=== PATIENT | female | born 1980 | race Caucasian/White ===

== ENCOUNTER 2016-12-23 00:46 | Emergency (ER) | payer BC ==
[~2016-12-23] VITALS: Ht 157.5 cm; Wt 97.5 kg
[2016-12-23 02:00] LABS: BASO # 0.1 x10^3/uL (0.0-0.2); BASO % 1 % (0-3); EOS % 5 % (0-3); HEMATOCRIT 41.5 % (36.0-47.0); HEMOGLOBIN 13.7 g/dL (12.0-15.5); LYMPH # 2.7 x10^3/uL (1.0-4.8); LYMPH % 26 % (24-48); MEAN CORPUSCULAR HEMOGLOBIN 29 pg (25-35); MEAN CORPUSCULAR HGB CONC 33 g/dL (31-37); MEAN CORPUSCULAR VOLUME 87 fL (79-100); MONO % 10 % (0-9); NEUT % 59 % (31-73); PLATELET COUNT 292 x10^3/uL (140-400); RED BLOOD COUNT 4.74 x10^6/uL (3.50-5.40); RED CELL DISTRIBUTION WIDTH 13.5 % (11.5-14.5); WHITE BLOOD COUNT 10.4 x10^3/uL (4.0-11.0)
[2016-12-23] MEDS ORDERED: ASPIRIN 325 MG TABLET PO ONE (02:00)
[2016-12-23 02:11] LABS: BARBITURATES NEG (NEG); BENZODIAZEPINES NEG (NEG); CANNABINOIDS NEG (NEG); COCAINE NEG (NEG); METHADONE NEG (NEG); OPIATES NEG (NEG); PHENCYCLIDINE NEG (NEG)
[2016-12-23 02:13] LABS: ETHANOL, URINE NEG (NEG)
[2016-12-23 03:47] LABS: OBC FLU VALID
[2016-12-23 03:53] LABS: CALCIUM 9.5 mg/dL (8.5-10.1); GFR 62.1; POTASSIUM 3.6 mmol/L (3.5-5.1)
[2016-12-23 04:15] VITALS: BP 105/66
[2016-12-23] MEDS ORDERED: CYCLOBENZAPRINE 10 MG TABLET. PO ONE (04:30)
[2016-12-23] MEDS ORDERED: CYCL10TA2 PO (04:37)
[2016-12-23] MEDS ORDERED: NAPR250T2 PO (04:37)
--- NOTE | 2016-12-23 06:35 | EKG ---
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
--- NOTE | 2016-12-23 07:07 | ED.ADGEN ---
Past Medical History Past Medical History: Asthma, Hypothyroid, Other Additional Past Medical Histor: sleep apnea Past Surgical History: Cholecystectomy, Other Additional Past Surgical Histo: L knee Alcohol Use: None Drug Use: None Adult General Chief Complaint Chief Complaint: CHEST PAIN HPI HPI Patient is a 36 year old woman, history of asthma, hypothyroidism, sleep apnea , who presents to the emergency department with a complaint of chest pain, arm pain, shortness of breath, which she states began today. Has been constant since early this evening. 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 Denies any drugs, alcohol, positive for cigarette use. No family history of sudden cardiac or cardiac issues in young people. No history of DVT or PE in herself or family members, no recent travel or surgery. Patient has not taken any medication prior to coming to the ED. No pain with inspiration, pain with palpation of the chest. Denies similar symptoms previously. Denies any weakness numbness or tingling. Patient states the pain is located in the left side of her chest, and that she has some pain in the left arm and tingling as well. No headache, no rhinorrhea or cough. Review of Systems Review of Systems Constitutional: Denies fever or chills. [] Eyes: Denies change in visual acuity. [] HENT: Denies nasal congestion or sore throat. [] Respiratory: Denies cough, shortness of breath with chest pain. Cardiovascular: Left anterior chest pain, no edema. GI: Denies abdominal pain, nausea, vomiting, bloody stools or diarrhea. [] : Denies dysuria. [] Musculoskeletal: Denies back pain or joint pain. [] Integument: Denies rash. [] Neurologic: Denies headache, focal weakness or sensory changes. [] Endocrine: Denies polyuria or polydipsia. [] Lymphatic: Denies swollen glands. [] Psychiatric: Denies depression, complaining of significant anxiety. Current Medications Current Medications Current Medications Medications (Trade) Dose Ordered Sig/Xenia Start Time Stop Time Status Last Admin Dose Admin Aspirin (Jeremy Aspirin) 325 mg 1X ONCE 12/23/16 02:00 12/23/16 04:14 DC 12/23/16 03:12 325 MG Cyclobenzaprine HCl (Flexeril) 10 mg 1X ONCE 12/23/16 04:30 12/23/16 04:31 DC 12/23/16 04:23 10 MG Allergies Allergies Allergies Coded Allergies Type Severity Reaction Last Updated Verified No Known Drug Allergies 12/23/16 No Physical Exam Physical Exam Constitutional: Well developed, well nourished, no acute distress, non-toxic appearance. [] HENT: Normocephalic, atraumatic, bilateral external ears normal, oropharynx moist, no oral exudates, nose normal. [] Eyes: PERRLA, EOMI, conjunctiva normal, no discharge. [] Neck: Normal range of motion, no tenderness, supple, no stridor. [] Cardiovascular:Heart rate regular rhythm, no murmur , S1, S2, rubs or gallops. Patient with reproducible left anterior chest wall tenderness. No crepitus. [] Lungs & Thorax: Bilateral breath sounds clear to auscultation, no wheezing, rhonchi, rales. [] Abdomen: Bowel sounds normal, soft, no tenderness, no masses, no rebound, rigidity, no guarding, no pulsatile masses. [] Skin: Warm, dry, no erythema, no rash. [] Back: No tenderness, no CVA tenderness. [] Extremities: No tenderness, no cyanosis, no clubbing, ROM intact, no edema. Negative Homans sign. [] Neurologic: Alert and oriented X 3, normal motor function, normal sensory function, no focal deficits noted. [] Psychologic: Affect normal, judgement normal, mood normal. [] Current Patient Data Vital Signs Vital Signs Date Time Temp Pulse Resp B/P Pulse Ox O2 Delivery O2 Flow Rate FiO2 12/23/16 04:15 100 25 105/66 93 Room Air 12/23/16 00:49 97.4 97.4 Lab Values Laboratory Tests Test 12/23/16 01:01 12/23/16 01:19 12/23/16 01:54 12/23/16 03:14 POC Urine HCG, Qualitative Hcg negative (Negative) White Blood Count 10.4x10^3/uL (4.0-11.0) Red Blood Count 4.74x10^6/uL (3.50-5.40) Hemoglobin 13.7g/dL (12.0-15.5) Hematocrit 41.5% (36.0-47.0) Mean Corpuscular Volume 87fL (79-100) Mean Corpuscular Hemoglobin 29pg (25-35) Mean Corpuscular Hemoglobin Concent 33g/dL (31-37) Red Cell Distribution Width 13.5% (11.5-14.5) Platelet Count 292x10^3/uL (140-400) Neutrophils (%) (Auto) 59% (31-73) Lymphocytes (%) (Auto) 26% (24-48) Monocytes (%) (Auto) 10% (0-9) H Eosinophils (%) (Auto) 5% (0-3) H Basophils (%) (Auto) 1% (0-3) Neutrophils # (Auto) 6.1x10^3uL (1.8-7.7) Lymphocytes # (Auto) 2.7x10^3/uL (1.0-4.8) Monocytes # (Auto) 1.1x10^3/uL (0.0-1.1) Eosinophils # (Auto) 0.5x10^3/uL (0.0-0.7) Basophils # (Auto) 0.1x10^3/uL (0.0-0.2) D-Dimer (Poppy) < 0.27ug/mlFEU (0.00-0.50) Sodium Level 142mmol/L (136-145) Potassium Level 3.6mmol/L (3.5-5.1) Chloride Level 103mmol/L (98-107) Carbon Dioxide Level 29mmol/L (21-32) Anion Gap 10 (6-14) Blood Urea Nitrogen 17mg/dL (7-20) Creatinine 1.0mg/dL (0.6-1.0) Estimated GFR (Cockcroft-Gault) 62.1 Glucose Level 84mg/dL (70-99) Calcium Level 9.5mg/dL (8.5-10.1) Troponin I Quantitative < 0.017ng/mL (0.000-0.055) PV-Hsv-S-Type Natriuretic Peptide 91pg/mL (0-124) Lipase 139U/L (73-393) Urine Opiates Screen Neg (NEG) Urine Methadone Screen Neg (NEG) Urine Barbiturates Neg (NEG) Urine Phencyclidine Screen Neg (NEG) Urine Amphetamine/Methamphetamine Neg (NEG) Urine Benzodiazepines Screen Neg (NEG) Urine Cocaine Screen Neg (NEG) Urine Cannabinoids Screen Neg (NEG) Urine Ethyl Alcohol Neg (NEG) Influenza Type A Antigen Negative (NEGATIVE) Influenza Type B Antigen Negative (NEGATIVE) Laboratory Tests 12/23/16 01:19 Laboratory Tests 12/23/16 01:19 EKG EKG EC: Sinus tachycardia, heart rate 101 bpm, upright axis, QTC of 447, OH 104, QRS of 74, patient with upright axis, single PVC noted, no ST elevations or depressions, abnormal ECG with PVC as stated, no other abnormalities identified. As interpreted by me. [] Radiology/Procedures Radiology/Procedures Chest x-ray: PA and lateral: 2 view: Normal cardiopulmonary silhouette, slightly suboptimal respiratory effort, no infiltrates, no effusions, no soft tissue or bony abnormalities identified, no free air. As interpreted by me. [] Course & Med Decision Making Course & Med Decision Making Pertinent Labs and Imaging studies reviewed. 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 Pain is reproducible with palpation. It is not respirophasic. Hasn't taken any medications prior to arrival in the ED. Patient states that she is under a great deal of stress, and loose contributed to her symptoms. She is mildly tachycardic in the emergency department, no swelling in the legs or other concerning factors for PE. Patient's d-dimer was negative and the ED. Patient's laboratory studies were all unremarkable. Chest x -ray did not reveal evidence acutely concerning findings, ECG was not concerning as well. Patient received pain medication in the emergency department on reevaluation patient states she is feeling better at this time. Patient was ambulated in the emergency department, oxygen saturation heart rate remained within normal limits, patient's pain is improved as stated. I discussed with patient that she has no indications of concerning cardiac or pulmonary abnormalities in the ED. Patient states she is relieved by these findings. We did discuss stress reduction, use of muscle relaxers and anti- inflammatories. Patient was discharged home in stable condition with cyclobenzaprine, naproxen, after receiving a dose in the emergency department. Also received aspirin in the ED. She was given a work note and clear and detailed return and follow-up instructions with which she voiced understanding and agreement. Dario Disclaimer Dario Disclaimer This electronic medical record was generated, in whole or in part, using a voice recognition dictation system. Departure Impression: Primary Impression: Chest pain Disposition: HOME, SELF-CARE Condition: IMPROVED Scripts Naproxen 250 Mg [id number] Mg PO BID PRN PAIN #10 Prov:ELFEGO POOLE DO 12/23/16 Cyclobenzaprine Hcl 10 Mg [id number] Mg PO TID PRN MUSCLE PAIN #12 TAB Prov:ELFEGO POOLE DO 12/23/16 ELFEGO POOLE DO Dec 23, 2016 07:07
--- NOTE | 2016-12-23 07:18 | RAD ---
Chest, 2 views, 12/23/2016: History: Chest pain The heart size and pulmonary vascularity are normal. No pulmonary infiltrates are seen. There is no evidence of pleural fluid. IMPRESSION: No acute cardiopulmonary abnormality is detected.
== END 2016-12-23 04:47 | disposition home or self-care (01) ==
LOC: ER 00:46
DX: R07.9 Chest pain, unspecified (principal); J45.909 Unspecified asthma, uncomplicated; E03.9 Hypothyroidism, unspecified; F17.210 Nicotine dependence, cigarettes, uncomplicated
CPT/HCPCS: 36415; 71020; 80048; 81025; 83690; 83880; 84484; 85027; 85379; 87804; 93005; 99285; G0481

== ENCOUNTER 2017-03-29 00:45 | Emergency (ER) | payer BC ==
[~2017-03-29] VITALS: Ht 162.6 cm; Wt 104.3 kg
[~2017-03-29 00:45] MED LIST: CYCL10TA2 PO; NAPR250T2 PO
[2017-03-29 02:55] VITALS: BP 111/77
--- NOTE | 2017-03-29 03:31 | PHYS DOC ---
Past Medical History Past Medical History: Asthma, Hypothyroid, Other Additional Past Medical Histor: sleep apnea, GESTATIONAL DIABETES Past Surgical History: Cholecystectomy, Other Additional Past Surgical Histo: L knee Alcohol Use: None Drug Use: None Adult General Chief Complaint Chief Complaint: MULTIPLE COMPLAINTS [facility] Patient is a 36 year old female approximately 10 weeks who presents with concern of dizziness, lightheadedness, and shakiness shortly after taking glyburide medicine. This was the first time she took it. She was diagnosed with gestational diabetes. Denies prior taking diabetic medication. At this time, she is asymptomatic and feeling normal. She denies headache, vision changes, nausea or vomiting, fever or chills, abdominal pain, vaginal bleeding or discharge, dysuria, hematuria, back pain. Review of Systems Review of Systems Constitutional: Denies fever or chills [] Eyes: Denies change in visual acuity, redness, or eye pain [] HENT: Denies nasal congestion or sore throat [] Respiratory: Denies cough or shortness of breath [] Cardiovascular: No additional information not addressed in [facility] [] GI: Denies abdominal pain, nausea, vomiting, bloody stools or diarrhea [] : Denies dysuria or hematuria [] Musculoskeletal: Denies back pain or joint pain [] Integument: Denies rash or skin lesions [] Neurologic: Denies headache, focal weakness or sensory changes [] Endocrine: Denies polyuria or polydipsia [] Allergies Allergies Allergies Coded Allergies Type Severity Reaction Last Updated Verified No Known Drug Allergies 12/23/16 No Physical Exam Physical Exam Constitutional: Well developed, well nourished, no acute distress, non-toxic appearance. [] HENT: Normocephalic, atraumatic, bilateral external ears normal, oropharynx moist, nose normal. [] Eyes: PERRLA, EOMI. [] Neck: Normal range of motion, supple. [] Cardiovascular:Heart rate regular rhythm [] Lungs & Thorax: Bilateral breath sounds clear to auscultation [] Abdomen: Bowel sounds normal, soft, no tenderness. [] Skin: Warm, dry, no erythema, no rash. [] Back: Normal range of motion. [] Extremities: No tenderness, ROM intact, no edema. [] Neurologic: Alert and oriented X 3, normal motor function, normal sensory function, no focal deficits noted. [] Psychologic: Affect normal, judgement normal, mood normal. [] Current Patient Data Vital Signs Vital Signs Date Time Temp Pulse Resp B/P (MAP) Pulse Ox O2 Delivery O2 Flow Rate FiO2 03/29/17 02:55 97.8 100 20 98 Room Air 97.8 Lab Values Laboratory Tests Test 03/29/17 01:23 03/29/17 01:57 Glucose (Fingerstick) 82 mg/dL (70-99) POC Urine HCG, Qualitative Hcg positive (Negative) Course & Med Decision Making Course & Med Decision Making Pertinent Labs and Imaging studies reviewed. (See chart for details) Discussed she should stop taking glyburide at this time and she should follow- up with her OB doctor to discuss other options. Discussed she should keep a blood glucose journal. Return precautions given. She understands and agrees with plan. Dragon Disclaimer Dragon Disclaimer This electronic medical record was generated, in whole or in part, using a voice recognition dictation system. Departure Departure Impression: Primary Impression: Encounter for medical screening examination Disposition: HOME, SELF-CARE Condition: STABLE Referrals: THELMA FORD MD (PCP) Patient Instructions: Gestational Diabetes Mellitus Additional Instructions: Keep a blood sugar journal. 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 Return for any concerns. Baron PURVIS MD Mar 29, 2017 03:31
== END 2017-03-29 03:50 | disposition home or self-care (01) ==
LOC: ER 00:45
DX: Z34.81 Encounter for supervision of other normal pregnancy, first trimester (principal); O26.891 Other specified pregnancy related conditions, first trimester; R42 Dizziness and giddiness; O24.419 Gestational diabetes mellitus in pregnancy, unspecified control; Z3A.10 10 weeks gestation of pregnancy; O99.511 Diseases of the respiratory system complicating pregnancy, first trimester; J45.909 Unspecified asthma, uncomplicated; O99.281 Endocrine, nutritional and metabolic diseases complicating pregnancy, first trimester; G47.30 Sleep apnea, unspecified; E03.9 Hypothyroidism, unspecified; Z90.49 Acquired absence of other specified parts of digestive tract
CPT/HCPCS: 81025; 82962; 99282

== ENCOUNTER 2017-09-18 21:44 | Emergency (ER) | payer BC ==
[~2017-09-18] VITALS: Ht 157.5 cm; Wt 108.9 kg
[~2017-09-18 21:44] MED LIST changes: -NAPR250T2 PO; +NAPR250T6 PO
[2017-09-18 23:30] VITALS: BP 102/53
--- NOTE | 2017-09-19 00:09 | PHYS DOC ---
Past Medical History Past Medical History: Asthma, Hypothyroid Additional Past Medical Histor: sleep apnea, GESTATIONAL DIABETES Past Surgical History: Cholecystectomy, Other Additional Past Surgical Histo: orthroscopic left knee Additional Information: 10/07- ppd Alcohol Use: None Drug Use: None Adult General Chief Complaint Chief Complaint: CHEST PAIN HPI HPI Patient is a 37 year old female who presents with left-sided chest wall pain worse with deep breathing, and cough. Patient was evaluated and diagnosed with pneumonia on Friday of this week and outside hospital. She was subsequently placed on Levaquin and prednisone is being compliant with treatment. Patient reports some chest wall pain and discomfort was told to follow-up with her primary care physician for repeat x-ray. Unfortunately, the patient was unable to be evaluated by her primary care and came to the emergency department. Patient has not had fever chills, nausea vomiting or sweats. Reports some dyspnea on exertion. Denies history of chronic pulmonary disease, asthma, CHF, CAD, DVT and PE. No other acute symptoms or complaints. [] Review of Systems Review of Systems Review symptoms of symptoms as per HPI. All other review symptoms are negative. All other systems were reviewed and found to be within normal limits, except as documented in this note. Allergies Allergies Allergies Coded Allergies Type Severity Reaction Last Updated Verified No Known Drug Allergies 12/23/16 No Physical Exam Physical Exam Constitutional: Well developed, well nourished, no acute distress, non-toxic appearance. [] HENT: Normocephalic, atraumatic, bilateral external ears normal, oropharynx moist, no oral exudates, nose normal. [] Eyes: PERRLA, EOMI, conjunctiva normal, no discharge. [] Neck: Normal range of motion. [] Cardiovascular: Tachycardic.[] Lungs & Thorax: Aspirations nonlabored, coarse breath sounds in left base. Left parasternal pain, tenderness, no palpable crepitus or subcutaneous emphysema. No flail chest.. [] Abdomen: Bowel sounds normal, soft, no tenderness. [] Skin: Warm, dry, no erythema, no rash. [] Back: No tenderness. [] Extremities: No tenderness. [] Neurologic: Alert and oriented X 3, normal motor function, normal sensory function, no focal deficits noted. [] Psychologic: Affect normal, judgement normal, mood normal. [] Current Patient Data Vital Signs Vital Signs Date Time Temp Pulse Resp B/P (MAP) Pulse Ox O2 Delivery O2 Flow Rate FiO2 09/18/17 22:18 98.3 98 16 140/82 (101) 98 Room Air 98.3 EKG EKG [EKG: Normal sinus rhythm, rate 97, no acute ST-T wave changes, QTC 446. By this physician.] Radiology/Procedures Radiology/Procedures [Chest x-ray: Possible resolving left lower lobe infiltrate.] Course & Med Decision Making Course & Med Decision Making Pertinent Labs and Imaging studies reviewed. (See chart for details) [Reproducible chest wall pain in the setting of recently diagnosed pneumonia. No respiratory compromise. Vital signs are stable. Patient's noted mildly tachycardic consistent with prednisone use. Recommend treatment of pneumonia outpatient follow-up with PCP for further management. Return precautions reviewed. Patient's verbalizes understanding and agreement discharge instructions prior to departure.] Dragon Disclaimer Dragon Disclaimer This electronic medical record was generated, in whole or in part, using a voice recognition dictation system. Departure Departure Impression: Primary Impression: Chest pain Disposition: 01 HOME, SELF-CARE Condition: GOOD Referrals: JENNIFER KHAN MD (PCP) Patient Instructions: Chest Wall Pain, [id number] Additional Instructions: You were evaluated in the emergency department for chest wall pain. Chest x-ray and EKG were performed and are consistent with pneumonia. Please take hydrocodone for pain, follow instructions provided to from [facility] and follow-up with your primary care physician or on-call physician in the next 5-7 days. In the meantime if you develop new or worsening symptoms, please return to the closest emergency department. MYRON ANTHONY DO Sep 19, 2017 00:09
--- NOTE | 2017-09-19 06:11 | EKG ---
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
--- NOTE | 2017-09-19 07:11 | RAD ---
Indication: Short of air, left chest pain Technique: 2 views of the chest including a repeat PA film to include the left costophrenic angle are provided. No comparison is available. Findings: The lungs are clear. The heart is not enlarged. There is no heart failure. There is no pleural effusion. Bony structures are intact. Leads overlie the patient. Impression: No acute thoracic findings.
== END 2017-09-19 00:18 | disposition home or self-care (01) ==
LOC: ER 21:44
DX: R07.89 Other chest pain (principal); R00.0 Tachycardia, unspecified; R05 Cough; R06.09 Other forms of dyspnea; J45.909 Unspecified asthma, uncomplicated; E03.9 Hypothyroidism, unspecified; G47.30 Sleep apnea, unspecified; F17.200 Nicotine dependence, unspecified, uncomplicated; Z90.49 Acquired absence of other specified parts of digestive tract
CPT/HCPCS: 71020; 93005; 99284-25

== ENCOUNTER 2018-08-09 10:25 | Inpatient (IN) | payer BC ==
[~2018-08-09] VITALS: Ht 162.6 cm; Wt 114.8 kg
--- NOTE | 2018-08-09 10:41 | PHYS DOC ---
Past Medical History Past Medical History: Asthma, Hypothyroid Additional Past Medical Histor: sleep apnea, GESTATIONAL DIABETES Past Surgical History: Cholecystectomy, Other Additional Past Surgical Histo: orthroscopic left knee Alcohol Use: None Drug Use: None Adult General Chief Complaint Chief Complaint: [facility] Patient is a 38 year old female presented ER today for evaluation of substernal chest pain that been going on for about week. Patient said she is also feeling dizzy, having trouble breathing. Patient is a smoker. Patient had a strong family history of coronary artery disease, her dad had multiple stent. Patient had no diabetic, no history hypertension, no history of blood clot disorder or any history of coronary artery disease in the past. Patient has history of RAMONITA, history of cholecystectomy. Patient was admitted at [facility] on , diagnosed with pleurisy, she was sent home, scheduled for an outpatient stress test. Patient however continued have chest pain so she went to the emergency room at [facility] this morning, diagnosed with pleurisy again, she was put on Levaquin and prednisone. Patient however still has chest pain and trouble breathing so she called her family doctor who told her to come to ER today for evaluation. She denies any recent operation or travel. Review of Systems Review of Systems Constitutional: Denies fever or chills [] Eyes: Denies change in visual acuity, redness, or eye pain [] HENT: Denies nasal congestion or sore throat [] Respiratory: Denies cough or positive for shortness of breath [] Cardiovascular: No additional information not addressed in HPI [] GI: Denies abdominal pain, nausea, vomiting, bloody stools or diarrhea [] : Denies dysuria or hematuria [] Musculoskeletal: Denies back pain or joint pain [] Integument: Denies rash or skin lesions [] Neurologic: Denies headache, focal weakness or sensory changes [] Endocrine: Denies polyuria or polydipsia [] All other systems were reviewed and found to be within normal limits, except as documented in this note. Current Medications Current Medications Current Medications Medications (Trade) Dose Ordered Sig/Xenia Start Time Stop Time Status Last Admin Dose Admin Info (CONTRAST GIVEN -- Rx MONITORING) 1 each PRN DAILY PRN 08/09/18 10:45 08/11/18 10:44 Iohexol (Omnipaque 300 Mg/ml) 75 ml 1X ONCE 08/09/18 10:45 08/09/18 10:46 DC Sodium Chloride 1,000 ml @ 1,000 mls/hr 1X ONCE 08/09/18 11:15 08/09/18 12:14 DC 08/09/18 11:30 1,000 MLS/HR Allergies Allergies Allergies Coded Allergies Type Severity Reaction Last Updated Verified No Known Drug Allergies 12/23/16 No Physical Exam Physical Exam Constitutional: Well developed, well nourished, no acute distress, non-toxic appearance. [] HENT: Normocephalic, atraumatic, bilateral external ears normal, oropharynx moist, no oral exudates, nose normal. [] Eyes: PERRLA, EOMI, conjunctiva normal, no discharge. [] Neck: Normal range of motion, no tenderness, supple, no stridor. [] Cardiovascular:Heart rate regular rhythm, no murmur [] Lungs & Thorax: expiratory wheezing in all lung hahn. Abdomen: Bowel sounds normal, soft, no tenderness, no masses, no pulsatile masses. [] Skin: Warm, dry, no erythema, no rash. [] Back: No tenderness, no CVA tenderness. [] Extremities: No tenderness, no cyanosis, no clubbing, ROM intact, no edema. [] Neurologic: Alert and oriented X 3, normal motor function, normal sensory function, no focal deficits noted. [] Psychologic: Affect normal, judgement normal, mood normal. [] Current Patient Data Vital Signs Vital Signs Date Time Temp Pulse Resp B/P (MAP) Pulse Ox O2 Delivery O2 Flow Rate FiO2 08/09/18 10:32 98.1 18 139/89 (106) 99 Room Air 98.1 Lab Values Laboratory Tests Test 08/09/18 10:30 08/09/18 11:00 White Blood Count 12.8 x10^3/uL (4.0-11.0) H Red Blood Count 4.72 x10^6/uL (3.50-5.40) Hemoglobin 14.1 g/dL (12.0-15.5) Hematocrit 41.1 % (36.0-47.0) Mean Corpuscular Volume 87 fL (79-100) Mean Corpuscular Hemoglobin 30 pg (25-35) Mean Corpuscular Hemoglobin Concent 34 g/dL (31-37) Red Cell Distribution Width 13.7 % (11.5-14.5) Platelet Count 336 x10^3/uL (140-400) Neutrophils (%) (Auto) 71 % (31-73) Lymphocytes (%) (Auto) 18 % (24-48) L Monocytes (%) (Auto) 9 % (0-9) Eosinophils (%) (Auto) 1 % (0-3) Basophils (%) (Auto) 1 % (0-3) Neutrophils # (Auto) 9.1 x10^3uL (1.8-7.7) H Lymphocytes # (Auto) 2.3 x10^3/uL (1.0-4.8) Monocytes # (Auto) 1.2 x10^3/uL (0.0-1.1) H Eosinophils # (Auto) 0.1 x10^3/uL (0.0-0.7) Basophils # (Auto) 0.1 x10^3/uL (0.0-0.2) Prothrombin Time 12.5 SEC (11.7-14.0) Prothrombin Time INR 1.0 (0.8-1.1) PTT 31 SEC (24-38) Sodium Level 139 mmol/L (136-145) Potassium Level 3.4 mmol/L (3.5-5.1) L Chloride Level 99 mmol/L (98-107) Carbon Dioxide Level 29 mmol/L (21-32) Anion Gap 11 (6-14) Blood Urea Nitrogen 11 mg/dL (7-20) Creatinine 1.2 mg/dL (0.6-1.0) H Estimated GFR (Cockcroft-Gault) 49.8 BUN/Creatinine Ratio 9 (6-20) Glucose Level 103 mg/dL (70-99) H Calcium Level 9.5 mg/dL (8.5-10.1) Magnesium Level 2.2 mg/dL (1.8-2.4) Total Bilirubin 0.8 mg/dL (0.2-1.0) Aspartate Amino Transferase (AST) 10 U/L (15-37) L Alanine Aminotransferase (ALT) 25 U/L (14-59) Alkaline Phosphatase 105 U/L (46-116) Creatine Kinase 52 U/L (26-192) Creatine Kinase MB (Mass) 0.7 ng/mL (0.0-3.6) Creatine Kinase MB Relative Index % (0-4) Troponin I Quantitative < 0.017 ng/mL (0.000-0.055) LH-Bge-U-Type Natriuretic Peptide 45 pg/mL (0-124) Total Protein 8.7 g/dL (6.4-8.2) H Albumin 4.2 g/dL (3.4-5.0) Albumin/Globulin Ratio 0.9 (1.0-1.7) L Lipase 114 U/L (73-393) Thyroid Stimulating Hormone (TSH) 7.244 uIU/mL (0.358-3.74) H Free Thyroxine 1.03 ng/dL (0.76-1.46) Urine Collection Type Unknown Urine Color Yellow Urine Clarity Clear Urine pH 6.5 Urine Specific [place] <=1.005 Urine Protein Negative mg/dL (NEG-TRACE) Urine Glucose (UA) Negative mg/dL (NEG) Urine Ketones (Stick) Negative mg/dL (NEG) Urine Blood Large (NEG) Urine Nitrite Negative (NEG) Urine Bilirubin Negative (NEG) Urine Urobilinogen Dipstick 0.2 mg/dL (0.2 mg/dL) Urine Leukocyte Esterase Negative (NEG) Urine RBC Rare /HPF (0-2) Urine WBC 0 /HPF (0-4) Urine Squamous Epithelial Cells Few /LPF Urine Bacteria 0 /HPF (0-FEW) Laboratory Tests 08/09/18 10:30 Laboratory Tests 08/09/18 10:30 EKG EKG EKG: RATE OF 87 BPM, PVC, NO STEMI. Radiology/Procedures Radiology/Procedures [][facility] [address] [place] [address], [place] [id number] IMAGING REPORT Signed PATIENT: CORINA STEIN ACCOUNT: [id number] : 1980 LOCATION: ER AGE: 38 SEX: F EXAM STATUS: REG ER ORD. PHYSICIAN: THELMA VILCHIS DO REASON: CHEST PAIN, SHORTNESS OF AIR, DIZZINESS PROCEDURE: CT ANGIOGRAPHY CHEST CT arteriogram of the chest. HISTORY: Chest pain, short of breath, dizziness CT arteriogram of the chest was done using 60 mL Isovue-370 contrast. Sagittal and coronal MIP images were reconstructed. Thyroid is homogeneous. There is no mediastinal adenopathy or pleural effusion. Visualized portions of the liver and spleen are unremarkable except for a cyst in the liver. Visualized portion of the pancreas is normal, adrenal glands are unremarkable. Upper poles of the kidneys are normal. Patient's had a cholecystectomy. Lungs are free of infiltrates or nodules. A pulmonary embolus is not identified. IMPRESSION: 1. Negative for a pulmonary embolus. 2. No infiltrates noted. PQRS Compliance Statement: One or more of the following individualized dose reduction techniques were utilized for this examination: 1. Automated exposure control 2. Adjustment of the mA and/or kV according to patient size 3. Use of iterative reconstruction technique Electronically signed by: Jamar Lundberg MD (08/09/2018 12:03 PM) [facility] DICTATED and SIGNED BY: JAMAR LUNDBERG MD DATE: 08/09/18 1155 Course & Med Decision Making Course & Med Decision Making Pertinent Labs and Imaging studies reviewed. (See chart for details) [] Dragon Disclaimer Dragon Disclaimer This electronic medical record was generated, in whole or in part, using a voice recognition dictation system. Departure Departure Impression: Primary Impression: Chest pain Disposition: ADMITTED INPATIENT Admitting Physician: Aditya Raya Condition: STABLE Referrals: JAMAR KHAN MD (PCP) THELMA VILCHIS DO Aug 09, 2018 10:40
[2018-08-09] MEDS ORDERED: CONTRAST GIVEN. MC PRN (10:45)
[2018-08-09] MEDS ORDERED: IOHEXOL 300 MG/ML 100ML VIAL. IV ONE (10:45)
--- NOTE | 2018-08-09 10:46 | EKG ---
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
[2018-08-09 10:47] LABS: BASO # 0.1 x10^3/uL (0.0-0.2); BASO % 1 % (0-3); EOS # 0.1 x10^3/uL (0.0-0.7); EOS % 1 % (0-3); HEMATOCRIT 41.1 % (36.0-47.0); HEMOGLOBIN 14.1 g/dL (12.0-15.5); LYMPH # 2.3 x10^3/uL (1.0-4.8); LYMPH % 18 % (24-48); MEAN CORPUSCULAR HEMOGLOBIN 30 pg (25-35); MEAN CORPUSCULAR HGB CONC 34 g/dL (31-37); MEAN CORPUSCULAR VOLUME 87 fL (79-100); MONO # 1.2 x10^3/uL (0.0-1.1); MONO % 9 % (0-9); NEUT # 9.1 x10^3uL (1.8-7.7); NEUT % 71 % (31-73); PLATELET COUNT 336 x10^3/uL (140-400); RED BLOOD COUNT 4.72 x10^6/uL (3.50-5.40); RED CELL DISTRIBUTION WIDTH 13.7 % (11.5-14.5); WHITE BLOOD COUNT 12.8 x10^3/uL (4.0-11.0)
[2018-08-09 10:58] LABS: CALCIUM 9.5 mg/dL (8.5-10.1); CREATININE 1.2 mg/dL (0.6-1.0); GFR 49.8; POTASSIUM 3.4 mmol/L (3.5-5.1)
[2018-08-09 11:10] LABS: ALBUMIN 4.2 g/dL (3.4-5.0); ALBUMIN/GLOBULIN RATIO 0.9 (1.0-1.7); MAGNESIUM 2.2 mg/dL (1.8-2.4); TOTAL BILIRUBIN 0.8 mg/dL (0.2-1.0); TOTAL PROTEIN 8.7 g/dL (6.4-8.2)
[2018-08-09 11:11] LABS: FREE T4 1.03 ng/dL (0.76-1.46); THYROID STIM HORMONE (TSH) 7.244 uIU/mL (0.358-3.74)
[2018-08-09 11:12] LABS: CREATINE KINASE 52 U/L (26-192)
[2018-08-09 11:14] LABS: PROTHROMBIN TIME PATIENT 12.5 SEC (11.7-14.0)
[2018-08-09] MEDS ORDERED: IV NORMAL SALINE 1000ML BAG 1,000 ML IV ONE (11:15)
[2018-08-09 11:19] LABS: BILIRUBIN,URINE NEGATIVE (NEG); CLARITY,URINE CLEAR; COLOR,URINE YELLOW; NITRITE,URINE NEGATIVE (NEG); PH,URINE 6.5; PROTEIN,URINE NEGATIVE (NEG-TRACE); UROBILINOGEN,URINE 0.2 mg/dL (0.2 mg/dL)
[2018-08-09 11:20] LABS: BACTERIA,URINE 0 /HPF (0-FEW); RBC,URINE RARE /HPF (0-2); SQUAMOUS EPITHELIAL CELL,UR FEW /LPF; WBC,URINE 0 /HPF (0-4)
--- NOTE | 2018-08-09 12:07 | RAD ---
CT arteriogram of the chest. HISTORY: Chest pain, short of breath, dizziness CT arteriogram of the chest was done using 60 mL Isovue-370 contrast. Sagittal and coronal MIP images were reconstructed. Thyroid is homogeneous. There is no mediastinal adenopathy or pleural effusion. Visualized portions of the liver and spleen are unremarkable except for a cyst in the liver. Visualized portion of the pancreas is normal, adrenal glands are unremarkable. Upper poles of the kidneys are normal. Patient's had a cholecystectomy. Lungs are free of infiltrates or nodules. A pulmonary embolus is not identified. IMPRESSION: 1. Negative for a pulmonary embolus. 2. No infiltrates noted. PQRS Compliance Statement: One or more of the following individualized dose reduction techniques were utilized for this examination: 1. Automated exposure control 2. Adjustment of the mA and/or kV according to patient size 3. Use of iterative reconstruction technique Electronically signed by: Jamar Lundberg MD (08/09/2018 12:03 PM) [facility]
[2018-08-09] MEDS ORDERED: FLUT100D IH (14:46)
[2018-08-09] MEDS ORDERED: POLY17PO29 PO (14:46)
[2018-08-09] MEDS ORDERED: DOXY100C2 PO (14:46)
[2018-08-09] MEDS ORDERED: MAGN400C PO (14:46)
[2018-08-09] MEDS ORDERED: MONT10TA9 PO (14:46)
[2018-08-09] MEDS ORDERED: LOSA50TA7 PO (14:46)
[2018-08-09] MEDS ORDERED: PANT20TA2 PO (14:46)
[2018-08-09 15:09] VITALS: BP 139/87
[2018-08-09] MEDS: ALPRAZolam 0.5 MG TABLET PO PRN (15:31)
[2018-08-09] MEDS ORDERED: PROAIR HFA8.5 GM INH (16:02)
[2018-08-09] MEDS ORDERED: FLUT12AE IH (16:02)
[2018-08-09] MEDS ORDERED: POLYETHYLENE GLYCOL 3350 17 GM PACKET. PO PRN (16:56)
[2018-08-09] MEDS ORDERED: NAPROXEN 250 MG TABLET PO PRN (17:00)
[2018-08-09] MEDS ORDERED: NON FORMULARY ITEM (Albuterol Sulfate (Proair Hfa Inhaler) 1 PUFF) INH PRN (17:00)
[2018-08-09] MEDS ORDERED: CYCLOBENZAPRINE 10 MG TABLET. PO PRN (17:00)
[2018-08-09] MEDS ORDERED: ALBUTEROL SULFATE 2.5 MG/3 ML NEBU. NEB PRN (17:15)
[2018-08-09] MEDS: BUDESONIDE 0.5 MG/2 ML NEBU. NEB SCH (18:30)
[2018-08-09 19:30] VITALS: BP 114/64
[2018-08-09] MEDS ORDERED: FLUTICASONE 50MCG/NASAL SPRAY 16GM BOTTLE. NS PRN (20:15)
[2018-08-09] MEDS ORDERED: PANTOPRAZOLE 40 MG TABLET.DR. PO ONE (20:15)
[2018-08-09] MEDS ORDERED: MAG HYDROX/ALUMINUM HYD/SIMETH 30 ML ORAL.SUSP PO PRN (20:15)
[2018-08-09] MEDS ORDERED: MAGNESIUM OXIDE 400 MG TABLET PO SCH (21:00)
[2018-08-09] MEDS ORDERED: MONTELUKAST SODIUM 10 MG TABLET. PO SCH (21:00)
[2018-08-09] MEDS ORDERED: NON FORMULARY ITEM (Fluticasone Propionate (Flovent 110MCG Hfa) 2 PUFF) IH SCH (21:00)
--- NOTE | 2018-08-09 21:38 | PDOC1 ---
History and Physical Date of Admission Date of Admission DATE: 08/09/18 TIME: 21:38 Identification/Chief Complaint Chief Complaint SEEN IN ER VERY ANXIOUS , was admitted at [facility] on , diagnosed with pleurisy, she was sent home, scheduled for an outpatient stress test. Patient however continued have chest pain so she went to the emergency room at [facility] with pleurisy again, she was put on Levaquin and prednisone. 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 FAMILY HX OBESITY Family History Family History: High Cholestrol Social History Smoke: 1 pack per day ALCOHOL: rare Drugs: None Current Problem List Problem List Problems Medical Problems: (1) Chest pain Status: Acute Current Medications Current Medications Current Medications Iohexol (Omnipaque 300 Mg/ml) 75 ml 1X ONCE IV ; Start 08/09/18 at 10:45; Stop 08/09/18 at 10:46; Status DC Info (CONTRAST GIVEN -- Rx MONITORING) 1 each PRN DAILY PRN MC SEE COMMENTS; Start 08/09/18 at 10:45; Stop 08/11/18 at 10:44 Sodium Chloride 1,000 ml @ 1,000 mls/hr 1X ONCE IV Last administered on at 11:30; Start 08/09/18 at 11:15; Stop 08/09/18 at 12:14; Status DC Alprazolam (Xanax) 0.5 mg PRN Q8HRS PRN PO ANXIETY / AGITATION Last administered on 08/09/18at 15:31; Start 08/09/18 at 15:15 Cyclobenzaprine HCl (Flexeril) 10 mg PRN TID PRN PO MUSCLE PAIN; Start at 17:00 Losartan Potassium (Cozaar) 50 mg DAILY PO ; Start 08/10/18 at 09:00 Non-Formulary Medication (Albuterol Sulfate (Proair Hfa Inhaler)) 1 puff PRN Q6HRS PRN INH SHORTNESS OF BREATH; Start 08/09/18 at 17:00; Stop 08/09/18 at 17 :08; Status DC Doxycycline Hyclate (Vibra-Tab) 100 mg BID PO ; Start 08/10/18 at 21:01 Non-Formulary Medication (Fluticasone Propionate (Flovent 110MCG Hfa)) 2 puff BID IH ; Start 08/09/18 at 21:00; Stop 08/09/18 at 21:00; Status DC Magnesium Oxide (Magnesium Oxide) 400 mg QHS PO ; Start 08/09/18 at 21:00 Montelukast Sodium (Singulair) 10 mg QHS PO ; Start 08/09/18 at 21:00 Naproxen (Naprosyn) 250 mg PRN BID PRN PO INFLAMMATION; Start 08/09/18 at 17:00 Pantoprazole Sodium (Protonix) 40 mg DAILYAC PO ; Start 08/10/18 at 07:30 Polyethylene Glycol (miraLAX PACKET) 17 gm PRN DAILY PRN PO CONSTIPATION; Start 08/09/18 at 16:56 Albuterol Sulfate (Ventolin Neb Soln) 2.5 mg PRN Q6HRS PRN NEB SHORTNESS OF BREATH; Start 08/09/18 at 17:15 Budesonide (Pulmicort) 0.5 mg RTBID NEB Last administered on 08/09/18at 18:30; Start 08/09/18 at 20:00 Fluticasone Propionate (Flonase) 2 spray PRN DAILY PRN NS ALLERGIES; Start 08/09/18 at 20:15 Calcium Carbonate/ Glycine (Tums) 500 mg PRN Q2HR PRN PO INDIGESTION; Start at 20:15 Al Hydroxide/Mg Hydroxide (Mylanta Plus Xs) 30 ml PRN Q2HR PRN PO HEARTBURN / GAS; Start 08/09/18 at 20:15 Pantoprazole Sodium (Protonix) 40 mg 1X ONCE PO ; Start 08/09/18 at 20:15; Stop 08/09/18 at 20:16; Status DC Active Scripts Active Naproxen 250 Mg Tablet 250 Mg PO BID PRN Cyclobenzaprine Hcl 10 Mg Tablet 10 Mg PO TID PRN Reported Proair Hfa Inhaler (Albuterol Sulfate) 8.5 Gm Hfa.aer.ad 1 Puff INH PRN Q6HRS PRN Flovent 110MCG Hfa (Fluticasone Propionate) 12 Gm Aer.w.adap 2 Puff IH BID Miralax (Polyethylene Glycol 3350) 17 Gm Powd.pack 1 Packet PO PRN PRN Magnesium (Magnesium Oxide) 400 Mg Capsule 1 Cap PO HS PRN Protonix (Pantoprazole Sodium) 20 Mg Tablet.dr 40 Mg PO DAILY Montelukast Sodium Tablet (Montelukast Sodium) 10 Mg Tablet 1 Tab PO HS Losartan Potassium 50 Mg Tablet 50 Mg PO DAILY Doxycycline Hyclate 100 Mg Capsule 1 Cap PO BID Allergies Allergies: Coded Allergies: gabapentin (Verified Allergy, Unknown, Rash, 08/09/18) Physical Exam Physical Exam Review of Systems Review of Systems Constitutional: Denies fever or chills [] Eyes: Denies change in visual acuity, redness, or eye pain [] HENT: Denies nasal congestion or sore throat [] Respiratory: Denies cough or positive for shortness of breath [] Cardiovascular: No additional information not addressed in HPI [] GI: Denies abdominal pain, nausea, vomiting, bloody stools or diarrhea [] : Denies dysuria or hematuria [] Musculoskeletal: Denies back pain or joint pain [] Integument: Denies rash or skin lesions [] Neurologic: Denies headache, focal weakness or sensory changes [] Endocrine: Denies polyuria or polydipsia [] PSYCH UNDER STRESS AT WORK 14 PT systems were reviewed and found to be within normal limits, except as documented . Current Medications Current Medications Current Medications Medications (Trade) Dose Ordered Sig/Xenia Start Time Stop Time Status Last Admin Dose Admin Info (CONTRAST GIVEN -- Rx MONITORING) 1 each PRN DAILY PRN 08/09/18 10:45 08/11/18 10:44 Iohexol (Omnipaque 300 Mg/ml) 75 ml 1X ONCE 08/09/18 10:45 08/09/18 10:46 DC Sodium Chloride 1,000 ml @ 1,000 mls/hr 1X ONCE 08/09/18 11:15 08/09/18 12:14 DC 08/09/18 11:30 1,000 MLS/HR Allergies Allergies Allergies Coded Allergies Type Severity Reaction Last Updated Verified No Known Drug Allergies 12/23/16 No Physical Exam Physical Exam Constitutional: Well developed, well nourished, no acute distress, non-toxic appearance. [] HENT: Normocephalic, atraumatic, bilateral external ears normal, oropharynx moist, no oral exudates, nose normal. [] Eyes: PERRLA, EOMI, conjunctiva normal, no discharge. [] Neck: Normal range of motion, no tenderness, supple, no stridor. [] Cardiovascular:Heart rate regular rhythm, no murmur [] Lungs & Thorax: expiratory wheezing in all lung hahn. Abdomen: Bowel sounds normal, soft, no tenderness, no masses, no pulsatile masses. [] Skin: Warm, dry, no erythema, no rash. [] Back: No tenderness, no CVA tenderness. [] Extremities: No tenderness, no cyanosis, no clubbing, ROM intact, no edema. [] Neurologic: Alert and oriented X 3, normal motor function, normal sensory function, no focal deficits noted. [] Psychologic: Affect normal, judgement normal, mood normal. [] General: Alert, Oriented X3, Cooperative, mild distress HEENT: Atraumatic, PERRLA Lungs: Clear to auscultation Heart: S1S2, RRR, no gallops Breasts: Not examined Abdomen: Soft, No tenderness Rectal Exam: not examined Skin: No significant lesion Neuro: Normal gait, Normal speech, Cranial nerves 3-12 NL Psych/Mental Status: Mental status NL Vitals Vitals Vital Signs Date Time Temp Pulse Resp B/P (MAP) Pulse Ox O2 Delivery O2 Flow Rate FiO2 08/09/18 19:30 97.9 85 22 114/64 (81) 97 Room Air 97.9 Labs Labs Laboratory Tests Test 08/09/18 10:30 08/09/18 11:00 08/09/18 15:40 White Blood Count 12.8 x10^3/uL (4.0-11.0) Red Blood Count 4.72 x10^6/uL (3.50-5.40) Hemoglobin 14.1 g/dL (12.0-15.5) Hematocrit 41.1 % (36.0-47.0) Mean Corpuscular Volume 87 fL (79-100) Mean Corpuscular Hemoglobin 30 pg (25-35) Mean Corpuscular Hemoglobin Concent 34 g/dL (31-37) Red Cell Distribution Width 13.7 % (11.5-14.5) Platelet Count 336 x10^3/uL (140-400) Neutrophils (%) (Auto) 71 % (31-73) Lymphocytes (%) (Auto) 18 % (24-48) Monocytes (%) (Auto) 9 % (0-9) Eosinophils (%) (Auto) 1 % (0-3) Basophils (%) (Auto) 1 % (0-3) Neutrophils # (Auto) 9.1 x10^3uL (1.8-7.7) Lymphocytes # (Auto) 2.3 x10^3/uL (1.0-4.8) Monocytes # (Auto) 1.2 x10^3/uL (0.0-1.1) Eosinophils # (Auto) 0.1 x10^3/uL (0.0-0.7) Basophils # (Auto) 0.1 x10^3/uL (0.0-0.2) Prothrombin Time 12.5 SEC (11.7-14.0) Prothromb Time International Ratio 1.0 (0.8-1.1) Activated Partial Thromboplast Time 31 SEC (24-38) Sodium Level 139 mmol/L (136-145) Potassium Level 3.4 mmol/L (3.5-5.1) Chloride Level 99 mmol/L (98-107) Carbon Dioxide Level 29 mmol/L (21-32) Anion Gap 11 (6-14) Blood Urea Nitrogen 11 mg/dL (7-20) Creatinine 1.2 mg/dL (0.6-1.0) Estimated GFR (Cockcroft-Gault) 49.8 BUN/Creatinine Ratio 9 (6-20) Glucose Level 103 mg/dL (70-99) Calcium Level 9.5 mg/dL (8.5-10.1) Magnesium Level 2.2 mg/dL (1.8-2.4) Total Bilirubin 0.8 mg/dL (0.2-1.0) Aspartate Amino Transf (AST/SGOT) 10 U/L (15-37) Alanine Aminotransferase (ALT/SGPT) 25 U/L (14-59) Alkaline Phosphatase 105 U/L (46-116) Creatine Kinase 52 U/L (26-192) Creatine Kinase MB (Mass) 0.7 ng/mL (0.0-3.6) Creatine Kinase MB Relative Index % (0-4) Troponin I Quantitative < 0.017 ng/mL (0.000-0.055) ZD-Qeh-B-Type Natriuretic Peptide 45 pg/mL (0-124) Total Protein 8.7 g/dL (6.4-8.2) Albumin 4.2 g/dL (3.4-5.0) Albumin/Globulin Ratio 0.9 (1.0-1.7) Lipase 114 U/L (73-393) Thyroid Stimulating Hormone (TSH) 7.244 uIU/mL (0.358-3.74) Free Thyroxine 1.03 ng/dL (0.76-1.46) Urine Collection Type Unknown Urine Color Yellow Urine Clarity Clear Urine pH 6.5 Urine Specific [place] <=1.005 Urine Protein Negative mg/dL (NEG-TRACE) Urine Glucose (UA) Negative mg/dL (NEG) Urine Ketones (Stick) Negative mg/dL (NEG) Urine Blood Large (NEG) Urine Nitrite Negative (NEG) Urine Bilirubin Negative (NEG) Urine Urobilinogen Dipstick 0.2 mg/dL (0.2 mg/dL) Urine Leukocyte Esterase Negative (NEG) Urine RBC Rare /HPF (0-2) Urine WBC 0 /HPF (0-4) Urine Squamous Epithelial Cells Few /LPF Urine Bacteria 0 /HPF (0-FEW) Lactic Acid Level 1.5 mmol/L (0.4-2.0) Laboratory Tests Test 08/09/18 10:30 08/09/18 11:00 08/09/18 15:40 White Blood Count 12.8 x10^3/uL (4.0-11.0) Red Blood Count 4.72 x10^6/uL (3.50-5.40) Hemoglobin 14.1 g/dL (12.0-15.5) Hematocrit 41.1 % (36.0-47.0) Mean Corpuscular Volume 87 fL (79-100) Mean Corpuscular Hemoglobin 30 pg (25-35) Mean Corpuscular Hemoglobin Concent 34 g/dL (31-37) Red Cell Distribution Width 13.7 % (11.5-14.5) Platelet Count 336 x10^3/uL (140-400) Neutrophils (%) (Auto) 71 % (31-73) Lymphocytes (%) (Auto) 18 % (24-48) Monocytes (%) (Auto) 9 % (0-9) Eosinophils (%) (Auto) 1 % (0-3) Basophils (%) (Auto) 1 % (0-3) Neutrophils # (Auto) 9.1 x10^3uL (1.8-7.7) Lymphocytes # (Auto) 2.3 x10^3/uL (1.0-4.8) Monocytes # (Auto) 1.2 x10^3/uL (0.0-1.1) Eosinophils # (Auto) 0.1 x10^3/uL (0.0-0.7) Basophils # (Auto) 0.1 x10^3/uL (0.0-0.2) Prothrombin Time 12.5 SEC (11.7-14.0) Prothromb Time International Ratio 1.0 (0.8-1.1) Activated Partial Thromboplast Time 31 SEC (24-38) Sodium Level 139 mmol/L (136-145) Potassium Level 3.4 mmol/L (3.5-5.1) Chloride Level 99 mmol/L (98-107) Carbon Dioxide Level 29 mmol/L (21-32) Anion Gap 11 (6-14) Blood Urea Nitrogen 11 mg/dL (7-20) Creatinine 1.2 mg/dL (0.6-1.0) Estimated GFR (Cockcroft-Gault) 49.8 BUN/Creatinine Ratio 9 (6-20) Glucose Level 103 mg/dL (70-99) Calcium Level 9.5 mg/dL (8.5-10.1) Magnesium Level 2.2 mg/dL (1.8-2.4) Total Bilirubin 0.8 mg/dL (0.2-1.0) Aspartate Amino Transf (AST/SGOT) 10 U/L (15-37) Alanine Aminotransferase (ALT/SGPT) 25 U/L (14-59) Alkaline Phosphatase 105 U/L (46-116) Creatine Kinase 52 U/L (26-192) Creatine Kinase MB (Mass) 0.7 ng/mL (0.0-3.6) Creatine Kinase MB Relative Index % (0-4) Troponin I Quantitative < 0.017 ng/mL (0.000-0.055) SX-Aom-D-Type Natriuretic Peptide 45 pg/mL (0-124) Total Protein 8.7 g/dL (6.4-8.2) Albumin 4.2 g/dL (3.4-5.0) Albumin/Globulin Ratio 0.9 (1.0-1.7) Lipase 114 U/L (73-393) Thyroid Stimulating Hormone (TSH) 7.244 uIU/mL (0.358-3.74) Free Thyroxine 1.03 ng/dL (0.76-1.46) Urine Collection Type Unknown Urine Color Yellow Urine Clarity Clear Urine pH 6.5 Urine Specific [place] <=1.005 Urine Protein Negative mg/dL (NEG-TRACE) Urine Glucose (UA) Negative mg/dL (NEG) Urine Ketones (Stick) Negative mg/dL (NEG) Urine Blood Large (NEG) Urine Nitrite Negative (NEG) Urine Bilirubin Negative (NEG) Urine Urobilinogen Dipstick 0.2 mg/dL (0.2 mg/dL) Urine Leukocyte Esterase Negative (NEG) Urine RBC Rare /HPF (0-2) Urine WBC 0 /HPF (0-4) Urine Squamous Epithelial Cells Few /LPF Urine Bacteria 0 /HPF (0-FEW) Lactic Acid Level 1.5 mmol/L (0.4-2.0) VTE Prophylaxis Ordered VTE Prophylaxis Devices: Yes VTE Pharmacological Prophylaxi: Yes Assessment/Plan Assessment/Plan IMPRESSION 1. CHEST PAIN 2. Tobacco abuse 3. morbid obesity 4. Charlene's thyroiditis 5. anxiety disorder with panic attacks plan 1. cvc icu 2. cardiology consult 3. serial troponin i 4. iv protonix 5. need copy of recent echo 6. sq lovenox dvt prophylaxis SUSAN BANERJEE MD Aug 09, 2018 21:38
[2018-08-09] MEDS: CALCIUM CARBONATE 500 MG TAB.CHEW PO PRN (21:47)
[2018-08-09] MEDS ORDERED: ENOXAPARIN 40 MG/0.4 ML SYRINGE. SQ SCH (22:00)
[2018-08-09 23:45] VITALS: BP 114/89
[2018-08-10 03:50] VITALS: BP 120/89
[2018-08-10 06:02] LABS: BASO # 0.1 x10^3/uL (0.0-0.2); BASO % 1 % (0-3); EOS # 0.2 x10^3/uL (0.0-0.7); EOS % 2 % (0-3); HEMATOCRIT 39.3 % (36.0-47.0); HEMOGLOBIN 13.3 g/dL (12.0-15.5); LYMPH # 2.4 x10^3/uL (1.0-4.8); LYMPH % 24 % (24-48); MEAN CORPUSCULAR HEMOGLOBIN 30 pg (25-35); MEAN CORPUSCULAR HGB CONC 34 g/dL (31-37); MEAN CORPUSCULAR VOLUME 87 fL (79-100); MONO # 1.1 x10^3/uL (0.0-1.1); MONO % 10 % (0-9); NEUT # 6.5 x10^3uL (1.8-7.7); NEUT % 63 % (31-73); PLATELET COUNT 294 x10^3/uL (140-400); RED CELL DISTRIBUTION WIDTH 14.1 % (11.5-14.5); WHITE BLOOD COUNT 10.3 x10^3/uL (4.0-11.0)
[2018-08-10 06:20] LABS: CALCIUM 8.8 mg/dL (8.5-10.1); GFR 61.4; POTASSIUM 3.5 mmol/L (3.5-5.1)
[2018-08-10] MEDS: PANTOPRAZOLE 40 MG TABLET.DR. PO SCH ×2 (07:30→15:05)
[2018-08-10 07:45] VITALS: BP 122/49
[2018-08-10 07:50] VITALS: BP 98/63
[2018-08-10] MEDS: BUDESONIDE 0.5 MG/2 ML NEBU. NEB SCH (08:18)
[2018-08-10] MEDS ORDERED: LOSARTAN POTASSIUM 50 MG TABLET. PO SCH (09:00)
[2018-08-10] MEDS ORDERED: LEVO200T5 PO (09:58)
--- NOTE | 2018-08-10 10:01 | PDOC2 ---
CHUCK BARBOSA THREAD CLIPPER 08/10/18 1001: CARDIAC CONSULT DATE OF CONSULT Date of Consult DATE: 08/10/18 TIME: 09:53 REASON FOR CONSULT Reason for Consult: Chest pain REFERRING PHYSICIAN Referring Physician: Fullbright SOURCE Source: Chart review, Patient HISTORY OF PRESENT ILLNESS HISTORY OF PRESENT ILLNESS This is a 38 yo female admitted for complains of chest pain. Reports that she has had multiple ED admissions. She was at [facility] last week where she was evaluated by cardiology and suggested outpt stress test. 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 She was discharged last week the following after ED visit and came back due to chest pain with nagging left shoulder discomfort again noting probably from muscle strain. Also with momentary SOA but no nausea or vomiting or heartburn. Denies any recent falls or injury. Denies any HARO or exertional CP. PAST MEDICAL HISTORY Cardiovascular: No pertinent hx Pulmonary: Asthma, Other (SERENA) CENTRAL NERVOUS SYSTEM: Other (No pertinent history) GI: GERD Heme/Onc: No pertinent hx Hepatobiliary: No pertinent hx Musculoskeletal: Osteoarthritis, Other (obesity) Rheumatologic: No pertinent hx Infectious disease: No pertinent hx ENT: No pertinent hx Renal/: No pertinent hx Endocrine: Diabetes (gestational), Hypothyroidism (agustina) Dermatology: No pertinent hx PAST SURGICAL HISTORY Past Surgical History: Cholecystectomy, Other (left knee surgery) SOCIAL HISTORY Smoke: <1 pack per day CURRENT MEDICATIONS CURRENT MEDICATIONS Current Medications Medications (Trade) Dose Ordered Sig/Xenia Route PRN Reason Start Time Stop Time Status Last Admin Dose Admin Sodium Chloride 1,000 ml @ 1,000 mls/hr 1X ONCE IV 08/09/18 11:15 08/09/18 12:14 DC 08/09/18 11:30 Alprazolam (Xanax) 0.5 mg PRN Q8HRS PRN PO ANXIETY / AGITATION 08/09/18 15:15 08/09/18 15:31 Magnesium Oxide (Magnesium Oxide) 400 mg QHS PO 08/09/18 21:00 08/09/18 21:45 Montelukast Sodium (Singulair) 10 mg QHS PO 08/09/18 21:00 08/09/18 21:46 Budesonide (Pulmicort) 0.5 mg RTBID NEB 08/09/18 20:00 08/10/18 08:18 Calcium Carbonate/ Glycine (Tums) 500 mg PRN Q2HR PRN PO INDIGESTION 08/09/18 20:15 08/09/18 21:47 Pantoprazole Sodium (Protonix) 40 mg 1X ONCE PO 08/09/18 20:15 08/09/18 20:16 DC 08/09/18 21:45 Enoxaparin Sodium (Lovenox 40mg Syringe) 40 mg Q24H SQ 08/09/18 22:00 08/09/18 22:16 ALLERGIES ALLERGIES: Coded Allergies: gabapentin (Verified Allergy, Unknown, Rash, 08/09/18) ROS Review of System 14 point ROS evaluated with pertinent positives noted per HPI PHYSICAL EXAM General: Alert, Oriented X3, Cooperative, No acute distress HEENT: Atraumatic, Mucous membr. moist/pink Lungs: Clear to auscultation, Normal air movement Heart: Regular rate (SRno significant ectopies), Normal S1, Normal S2, No murmurs Abdomen: Soft, No tenderness Extremities: No cyanosis, No edema Skin: No breakdown, No significant lesion Neuro: Normal speech, Sensation intact Psych/Mental Status: Mental status NL, Mood NL MUSCULOSKELETAL: Osteoarthritic changes both hands VITALS VITALS Vital Signs Date Time Temp Pulse Resp B/P (MAP) Pulse Ox O2 Delivery O2 Flow Rate FiO2 08/10/18 08:20 95 Room Air 08/10/18 07:50 79 98/63 (75) 08/10/18 07:45 97.7 22 97.7 LABS Lab: Laboratory Tests Test 08/09/18 10:30 08/09/18 11:00 08/09/18 15:40 08/10/18 05:15 White Blood Count 12.8 x10^3/uL (4.0-11.0) 10.3 x10^3/uL (4.0-11.0) Red Blood Count 4.72 x10^6/uL (3.50-5.40) 4.50 x10^6/uL (3.50-5.40) Hemoglobin 14.1 g/dL (12.0-15.5) 13.3 g/dL (12.0-15.5) Hematocrit 41.1 % (36.0-47.0) 39.3 % (36.0-47.0) Mean Corpuscular Volume 87 fL (79-100) 87 fL (79-100) Mean Corpuscular Hemoglobin 30 pg (25-35) 30 pg (25-35) Mean Corpuscular Hemoglobin Concent 34 g/dL (31-37) 34 g/dL (31-37) Red Cell Distribution Width 13.7 % (11.5-14.5) 14.1 % (11.5-14.5) Platelet Count 336 x10^3/uL (140-400) 294 x10^3/uL (140-400) Neutrophils (%) (Auto) 71 % (31-73) 63 % (31-73) Lymphocytes (%) (Auto) 18 % (24-48) 24 % (24-48) Monocytes (%) (Auto) 9 % (0-9) 10 % (0-9) Eosinophils (%) (Auto) 1 % (0-3) 2 % (0-3) Basophils (%) (Auto) 1 % (0-3) 1 % (0-3) Neutrophils # (Auto) 9.1 x10^3uL (1.8-7.7) 6.5 x10^3uL (1.8-7.7) Lymphocytes # (Auto) 2.3 x10^3/uL (1.0-4.8) 2.4 x10^3/uL (1.0-4.8) Monocytes # (Auto) 1.2 x10^3/uL (0.0-1.1) 1.1 x10^3/uL (0.0-1.1) Eosinophils # (Auto) 0.1 x10^3/uL (0.0-0.7) 0.2 x10^3/uL (0.0-0.7) Basophils # (Auto) 0.1 x10^3/uL (0.0-0.2) 0.1 x10^3/uL (0.0-0.2) Prothrombin Time 12.5 SEC (11.7-14.0) Prothromb Time International Ratio 1.0 (0.8-1.1) Activated Partial Thromboplast Time 31 SEC (24-38) Sodium Level 139 mmol/L (136-145) 139 mmol/L (136-145) Potassium Level 3.4 mmol/L (3.5-5.1) 3.5 mmol/L (3.5-5.1) Chloride Level 99 mmol/L (98-107) 101 mmol/L (98-107) Carbon Dioxide Level 29 mmol/L (21-32) 28 mmol/L (21-32) Anion Gap 11 (6-14) 10 (6-14) Blood Urea Nitrogen 11 mg/dL (7-20) 13 mg/dL (7-20) Creatinine 1.2 mg/dL (0.6-1.0) 1.0 mg/dL (0.6-1.0) Estimated GFR (Cockcroft-Gault) 49.8 61.4 BUN/Creatinine Ratio 9 (6-20) Glucose Level 103 mg/dL (70-99) 85 mg/dL (70-99) Calcium Level 9.5 mg/dL (8.5-10.1) 8.8 mg/dL (8.5-10.1) Magnesium Level 2.2 mg/dL (1.8-2.4) Total Bilirubin 0.8 mg/dL (0.2-1.0) Aspartate Amino Transf (AST/SGOT) 10 U/L (15-37) Alanine Aminotransferase (ALT/SGPT) 25 U/L (14-59) Alkaline Phosphatase 105 U/L (46-116) Creatine Kinase 52 U/L (26-192) Creatine Kinase MB (Mass) 0.7 ng/mL (0.0-3.6) Creatine Kinase MB Relative Index % (0-4) Troponin I Quantitative < 0.017 ng/mL (0.000-0.055) BI-Xiv-F-Type Natriuretic Peptide 45 pg/mL (0-124) Total Protein 8.7 g/dL (6.4-8.2) Albumin 4.2 g/dL (3.4-5.0) Albumin/Globulin Ratio 0.9 (1.0-1.7) Lipase 114 U/L (73-393) Thyroid Stimulating Hormone (TSH) 7.244 uIU/mL (0.358-3.74) Free Thyroxine 1.03 ng/dL (0.76-1.46) Urine Collection Type Unknown Urine Color Yellow Urine Clarity Clear Urine pH 6.5 Urine Specific [place] <=1.005 Urine Protein Negative mg/dL (NEG-TRACE) Urine Glucose (UA) Negative mg/dL (NEG) Urine Ketones (Stick) Negative mg/dL (NEG) Urine Blood Large (NEG) Urine Nitrite Negative (NEG) Urine Bilirubin Negative (NEG) Urine Urobilinogen Dipstick 0.2 mg/dL (0.2 mg/dL) Urine Leukocyte Esterase Negative (NEG) Urine RBC Rare /HPF (0-2) Urine WBC 0 /HPF (0-4) Urine Squamous Epithelial Cells Few /LPF Urine Bacteria 0 /HPF (0-FEW) Lactic Acid Level 1.5 mmol/L (0.4-2.0) ASSESSMENT/PLAN ASSESSMENT/PLAN 1. Chest pain: multiple ED admission with complains of CP with recent reported pleurisy. CTA chest unremarkable. 2. Morbid obesity with SERENA 3. Hypothyroidism: TSH not on goal. per PCP 4. Tobaccoism: quit over a wekk ago Recommendations Repeat trop, lipids. Stress echo today. JOSE R BELLAMY MD 08/10/18 7217: CARDIAC CONSULT ASSESSMENT/PLAN ASSESSMENT/PLAN Pt. seen and examined. Agree with above CHEESE SPECIALIST note. Stress echo wnl. Likely significant anxiety. CHUCK BARBOSA APRN Aug 10, 2018 10:01 JOSE R BELLAMY MD Aug 10, 2018 21:47
[2018-08-10 10:43] LABS: CHOLESTEROL/HDL RATIO 2.4
[2018-08-10 10:50] VITALS: BP 106/54
--- NOTE | 2018-08-10 12:04 | PDOC ---
PROGRESS NOTES History of Present Illness History of Present Illness Assessment/Plan Assessment/Plan IMPRESSION 1. CHEST PAIN 2. Tobacco abuse 3. morbid obesity 4. Charlene's thyroiditis 5. anxiety disorder with panic attacks plan 1. cvc icu 2. cardiology consult 3. serial troponin i 4. iv protonix 5. need copy of recent echo 6. sq lovenox dvt prophylaxis stress test today, low risk Vitals Vitals Vital Signs Date Time Temp Pulse Resp B/P (MAP) Pulse Ox O2 Delivery O2 Flow Rate FiO2 08/10/18 10:50 97.8 77 18 106/54 (71) 98 97.8 08/10/18 08:20 Room Air Physical Exam General: Alert, Oriented X3, Cooperative, No acute distress Heart: Regular rate (SRno significant ectopies), Normal S1, Normal S2, No murmurs Lungs: Clear Abdomen: Soft, No tenderness Extremities: No cyanosis, No edema Skin: No breakdown, No significant lesion Labs LABS Nurse/Tech Notes S1S2, lungs CTA Stress Symptoms dyspnea, fatigue POST EXERCISE Reason for Termination: Reached target heart rate Target HR: Yes Max HR: 175 bpm 97% of Maximum Predicted HR: 180 bpm Exercise duration: 6 min:sec, 2 Stage Exercise capacity: 7METs Max Blood Pressure: 138/52mmHg Blood Pressure response to exercise: Normal blood pressure response during stress. Heart Rate response to exercise: wnl Chest Pain: No. Arrhythmia: No. noted [address] Change: No. RESTING ECG Rhythm: Sinus STRESS ECG Rhythm: Sinus Tachycardia Stress EKG shows no significant changes. Preliminary Notification Critical Value: No <Conclusion> 1. Average exercise capacity with 7 Mets achieved. Normal HR/BP response. 2. Normal resting and stress wall motion and EF. Appropriate EF augmenation. 3. Low risk study Signed by : Jose R Bellamy, Electronically Approved : 08/10/2018 13:42:59 DICTATED and SIGNED BY: JOSE R BELLAMY MD DATE: 08/10/18 1342 MTH0 0 Laboratory Tests Test 08/09/18 15:40 08/10/18 05:15 Lactic Acid Level 1.5 mmol/L (0.4-2.0) White Blood Count 10.3 x10^3/uL (4.0-11.0) Red Blood Count 4.50 x10^6/uL (3.50-5.40) Hemoglobin 13.3 g/dL (12.0-15.5) Hematocrit 39.3 % (36.0-47.0) Mean Corpuscular Volume 87 fL (79-100) Mean Corpuscular Hemoglobin 30 pg (25-35) Mean Corpuscular Hemoglobin Concent 34 g/dL (31-37) Red Cell Distribution Width 14.1 % (11.5-14.5) Platelet Count 294 x10^3/uL (140-400) Neutrophils (%) (Auto) 63 % (31-73) Lymphocytes (%) (Auto) 24 % (24-48) Monocytes (%) (Auto) 10 % (0-9) Eosinophils (%) (Auto) 2 % (0-3) Basophils (%) (Auto) 1 % (0-3) Neutrophils # (Auto) 6.5 x10^3uL (1.8-7.7) Lymphocytes # (Auto) 2.4 x10^3/uL (1.0-4.8) Monocytes # (Auto) 1.1 x10^3/uL (0.0-1.1) Eosinophils # (Auto) 0.2 x10^3/uL (0.0-0.7) Basophils # (Auto) 0.1 x10^3/uL (0.0-0.2) Sodium Level 139 mmol/L (136-145) Potassium Level 3.5 mmol/L (3.5-5.1) Chloride Level 101 mmol/L (98-107) Carbon Dioxide Level 28 mmol/L (21-32) Anion Gap 10 (6-14) Blood Urea Nitrogen 13 mg/dL (7-20) Creatinine 1.0 mg/dL (0.6-1.0) Estimated GFR (Cockcroft-Gault) 61.4 Glucose Level 85 mg/dL (70-99) Calcium Level 8.8 mg/dL (8.5-10.1) Troponin I Quantitative < 0.017 ng/mL (0.000-0.055) Triglycerides Level 106 mg/dL (0-150) Cholesterol Level 112 mg/dL (0-200) LDL Cholesterol, Calculated 45 mg/dL (0-100) VLDL Cholesterol, Calculated 21 mg/dL (0-40) Non-HDL Cholesterol Calculated 66 mg/dL (0-129) HDL Cholesterol 46 mg/dL (40-60) Cholesterol/HDL Ratio 2.4 Assessment and Plan Assessmemt and Plan Problems Medical Problems: (1) Chest pain Status: Acute Comment Review of Relevant I have reviewed the following items michael (where applicable) has been applied. Labs Laboratory Tests Test 08/09/18 10:30 08/09/18 11:00 08/09/18 15:40 08/10/18 05:15 White Blood Count 12.8 x10^3/uL (4.0-11.0) 10.3 x10^3/uL (4.0-11.0) Red Blood Count 4.72 x10^6/uL (3.50-5.40) 4.50 x10^6/uL (3.50-5.40) Hemoglobin 14.1 g/dL (12.0-15.5) 13.3 g/dL (12.0-15.5) Hematocrit 41.1 % (36.0-47.0) 39.3 % (36.0-47.0) Mean Corpuscular Volume 87 fL (79-100) 87 fL (79-100) Mean Corpuscular Hemoglobin 30 pg (25-35) 30 pg (25-35) Mean Corpuscular Hemoglobin Concent 34 g/dL (31-37) 34 g/dL (31-37) Red Cell Distribution Width 13.7 % (11.5-14.5) 14.1 % (11.5-14.5) Platelet Count 336 x10^3/uL (140-400) 294 x10^3/uL (140-400) Neutrophils (%) (Auto) 71 % (31-73) 63 % (31-73) Lymphocytes (%) (Auto) 18 % (24-48) 24 % (24-48) Monocytes (%) (Auto) 9 % (0-9) 10 % (0-9) Eosinophils (%) (Auto) 1 % (0-3) 2 % (0-3) Basophils (%) (Auto) 1 % (0-3) 1 % (0-3) Neutrophils # (Auto) 9.1 x10^3uL (1.8-7.7) 6.5 x10^3uL (1.8-7.7) Lymphocytes # (Auto) 2.3 x10^3/uL (1.0-4.8) 2.4 x10^3/uL (1.0-4.8) Monocytes # (Auto) 1.2 x10^3/uL (0.0-1.1) 1.1 x10^3/uL (0.0-1.1) Eosinophils # (Auto) 0.1 x10^3/uL (0.0-0.7) 0.2 x10^3/uL (0.0-0.7) Basophils # (Auto) 0.1 x10^3/uL (0.0-0.2) 0.1 x10^3/uL (0.0-0.2) Prothrombin Time 12.5 SEC (11.7-14.0) Prothromb Time International Ratio 1.0 (0.8-1.1) Activated Partial Thromboplast Time 31 SEC (24-38) Sodium Level 139 mmol/L (136-145) 139 mmol/L (136-145) Potassium Level 3.4 mmol/L (3.5-5.1) 3.5 mmol/L (3.5-5.1) Chloride Level 99 mmol/L (98-107) 101 mmol/L (98-107) Carbon Dioxide Level 29 mmol/L (21-32) 28 mmol/L (21-32) Anion Gap 11 (6-14) 10 (6-14) Blood Urea Nitrogen 11 mg/dL (7-20) 13 mg/dL (7-20) Creatinine 1.2 mg/dL (0.6-1.0) 1.0 mg/dL (0.6-1.0) Estimated GFR (Cockcroft-Gault) 49.8 61.4 BUN/Creatinine Ratio 9 (6-20) Glucose Level 103 mg/dL (70-99) 85 mg/dL (70-99) Calcium Level 9.5 mg/dL (8.5-10.1) 8.8 mg/dL (8.5-10.1) Magnesium Level 2.2 mg/dL (1.8-2.4) Total Bilirubin 0.8 mg/dL (0.2-1.0) Aspartate Amino Transf (AST/SGOT) 10 U/L (15-37) Alanine Aminotransferase (ALT/SGPT) 25 U/L (14-59) Alkaline Phosphatase 105 U/L (46-116) Creatine Kinase 52 U/L (26-192) Creatine Kinase MB (Mass) 0.7 ng/mL (0.0-3.6) Creatine Kinase MB Relative Index % (0-4) Troponin I Quantitative < 0.017 ng/mL (0.000-0.055) < 0.017 ng/mL (0.000-0.055) WJ-Umy-F-Type Natriuretic Peptide 45 pg/mL (0-124) Total Protein 8.7 g/dL (6.4-8.2) Albumin 4.2 g/dL (3.4-5.0) Albumin/Globulin Ratio 0.9 (1.0-1.7) Lipase 114 U/L (73-393) Thyroid Stimulating Hormone (TSH) 7.244 uIU/mL (0.358-3.74) Free Thyroxine 1.03 ng/dL (0.76-1.46) Urine Collection Type Unknown Urine Color Yellow Urine Clarity Clear Urine pH 6.5 Urine Specific [place] <=1.005 Urine Protein Negative mg/dL (NEG-TRACE) Urine Glucose (UA) Negative mg/dL (NEG) Urine Ketones (Stick) Negative mg/dL (NEG) Urine Blood Large (NEG) Urine Nitrite Negative (NEG) Urine Bilirubin Negative (NEG) Urine Urobilinogen Dipstick 0.2 mg/dL (0.2 mg/dL) Urine Leukocyte Esterase Negative (NEG) Urine RBC Rare /HPF (0-2) Urine WBC 0 /HPF (0-4) Urine Squamous Epithelial Cells Few /LPF Urine Bacteria 0 /HPF (0-FEW) Lactic Acid Level 1.5 mmol/L (0.4-2.0) Triglycerides Level 106 mg/dL (0-150) Cholesterol Level 112 mg/dL (0-200) LDL Cholesterol, Calculated 45 mg/dL (0-100) VLDL Cholesterol, Calculated 21 mg/dL (0-40) Non-HDL Cholesterol Calculated 66 mg/dL (0-129) HDL Cholesterol 46 mg/dL (40-60) Cholesterol/HDL Ratio 2.4 Laboratory Tests Test 08/09/18 15:40 08/10/18 05:15 Lactic Acid Level 1.5 mmol/L (0.4-2.0) White Blood Count 10.3 x10^3/uL (4.0-11.0) Red Blood Count 4.50 x10^6/uL (3.50-5.40) Hemoglobin 13.3 g/dL (12.0-15.5) Hematocrit 39.3 % (36.0-47.0) Mean Corpuscular Volume 87 fL (79-100) Mean Corpuscular Hemoglobin 30 pg (25-35) Mean Corpuscular Hemoglobin Concent 34 g/dL (31-37) Red Cell Distribution Width 14.1 % (11.5-14.5) Platelet Count 294 x10^3/uL (140-400) Neutrophils (%) (Auto) 63 % (31-73) Lymphocytes (%) (Auto) 24 % (24-48) Monocytes (%) (Auto) 10 % (0-9) Eosinophils (%) (Auto) 2 % (0-3) Basophils (%) (Auto) 1 % (0-3) Neutrophils # (Auto) 6.5 x10^3uL (1.8-7.7) Lymphocytes # (Auto) 2.4 x10^3/uL (1.0-4.8) Monocytes # (Auto) 1.1 x10^3/uL (0.0-1.1) Eosinophils # (Auto) 0.2 x10^3/uL (0.0-0.7) Basophils # (Auto) 0.1 x10^3/uL (0.0-0.2) Sodium Level 139 mmol/L (136-145) Potassium Level 3.5 mmol/L (3.5-5.1) Chloride Level 101 mmol/L (98-107) Carbon Dioxide Level 28 mmol/L (21-32) Anion Gap 10 (6-14) Blood Urea Nitrogen 13 mg/dL (7-20) Creatinine 1.0 mg/dL (0.6-1.0) Estimated GFR (Cockcroft-Gault) 61.4 Glucose Level 85 mg/dL (70-99) Calcium Level 8.8 mg/dL (8.5-10.1) Troponin I Quantitative < 0.017 ng/mL (0.000-0.055) Triglycerides Level 106 mg/dL (0-150) Cholesterol Level 112 mg/dL (0-200) LDL Cholesterol, Calculated 45 mg/dL (0-100) VLDL Cholesterol, Calculated 21 mg/dL (0-40) Non-HDL Cholesterol Calculated 66 mg/dL (0-129) HDL Cholesterol 46 mg/dL (40-60) Cholesterol/HDL Ratio 2.4 Medications Current Medications Iohexol (Omnipaque 300 Mg/ml) 75 ml 1X ONCE IV ; Start 08/09/18 at 10:45; Stop 08/09/18 at 10:46; Status DC Info (CONTRAST GIVEN -- Rx MONITORING) 1 each PRN DAILY PRN MC SEE COMMENTS; Start 08/09/18 at 10:45; Stop 08/11/18 at 10:44 Sodium Chloride 1,000 ml @ 1,000 mls/hr 1X ONCE IV Last administered on at 11:30; Start 08/09/18 at 11:15; Stop 08/09/18 at 12:14; Status DC Alprazolam (Xanax) 0.5 mg PRN Q8HRS PRN PO ANXIETY / AGITATION Last administered on 08/09/18at 15:31; Start 08/09/18 at 15:15 Cyclobenzaprine HCl (Flexeril) 10 mg PRN TID PRN PO MUSCLE PAIN; Start at 17:00 Losartan Potassium (Cozaar) 50 mg DAILY PO ; Start 08/10/18 at 09:00 Non-Formulary Medication (Albuterol Sulfate (Proair Hfa Inhaler)) 1 puff PRN Q6HRS PRN INH SHORTNESS OF BREATH; Start 08/09/18 at 17:00; Stop 08/09/18 at 17 :08; Status DC Doxycycline Hyclate (Vibra-Tab) 100 mg BID PO ; Start 08/10/18 at 21:01 Non-Formulary Medication (Fluticasone Propionate (Flovent 110MCG Hfa)) 2 puff BID IH ; Start 08/09/18 at 21:00; Stop 08/09/18 at 21:00; Status DC Magnesium Oxide (Magnesium Oxide) 400 mg QHS PO Last administered on 08/09/18at 21:45; Start 08/09/18 at 21:00 Montelukast Sodium (Singulair) 10 mg QHS PO Last administered on 08/09/18at 21: 46; Start 08/09/18 at 21:00 Naproxen (Naprosyn) 250 mg PRN BID PRN PO INFLAMMATION; Start 08/09/18 at 17:00 Pantoprazole Sodium (Protonix) 40 mg DAILYAC PO ; Start 08/10/18 at 07:30 Polyethylene Glycol (miraLAX PACKET) 17 gm PRN DAILY PRN PO CONSTIPATION; Start 08/09/18 at 16:56 Albuterol Sulfate (Ventolin Neb Soln) 2.5 mg PRN Q6HRS PRN NEB SHORTNESS OF BREATH; Start 08/09/18 at 17:15 Budesonide (Pulmicort) 0.5 mg RTBID NEB Last administered on 08/10/18at 08:18; Start 08/09/18 at 20:00 Fluticasone Propionate (Flonase) 2 spray PRN DAILY PRN NS ALLERGIES; Start 08/09/18 at 20:15 Calcium Carbonate/ Glycine (Tums) 500 mg PRN Q2HR PRN PO INDIGESTION Last administered on 08/09/18at 21:47; Start 08/09/18 at 20:15 Al Hydroxide/Mg Hydroxide (Mylanta Plus Xs) 30 ml PRN Q2HR PRN PO HEARTBURN / GAS; Start 08/09/18 at 20:15 Pantoprazole Sodium (Protonix) 40 mg 1X ONCE PO Last administered on at 21:45; Start 08/09/18 at 20:15; Stop 08/09/18 at 20:16; Status DC Enoxaparin Sodium (Lovenox 40mg Syringe) 40 mg Q24H SQ Last administered on 08/09/18at 22:16; Start 08/09/18 at 22:00 Active Scripts Active Naproxen 250 Mg Tablet 250 Mg PO BID PRN Cyclobenzaprine Hcl 10 Mg Tablet 10 Mg PO TID PRN Reported Levothyroxine Sodium 200 Mcg Tablet 1 Tab PO DAILY Proair Hfa Inhaler (Albuterol Sulfate) 8.5 Gm Hfa.aer.ad 1 Puff INH PRN Q6HRS PRN Flovent 110MCG Hfa (Fluticasone Propionate) 12 Gm Aer.w.adap 2 Puff IH BID Miralax (Polyethylene Glycol 3350) 17 Gm Powd.pack 1 Packet PO PRN PRN Magnesium (Magnesium Oxide) 400 Mg Capsule 1 Cap PO HS PRN Protonix (Pantoprazole Sodium) 20 Mg Tablet.dr 40 Mg PO DAILY Montelukast Sodium Tablet (Montelukast Sodium) 10 Mg Tablet 1 Tab PO HS Losartan Potassium 50 Mg Tablet 50 Mg PO DAILY Doxycycline Hyclate 100 Mg Capsule 1 Cap PO BID Vitals/I & O Vital Sign - Last 24 Hours 08/09/18 08/09/18 08/09/18 08/09/18 13:50 14:14 15:09 18:35 Temp 98.2 98.2 Pulse 77 85 Resp 18 22 B/P (MAP) 134/78 (96) 139/87 (104) Pulse Ox 95 99 100 O2 Delivery Room Air Room Air Room Air Room Air 08/09/18 08/09/18 08/09/18 08/10/18 19:30 19:45 23:45 03:50 Temp 97.9 98.0 98.3 97.9 98.0 98.3 Pulse 85 78 80 Resp 22 22 22 B/P (MAP) 114/64 (81) 114/89 (97) 120/89 (99) Pulse Ox 97 98 98 O2 Delivery Room Air Room Air BiPAP/CPAP Room Air 08/10/18 08/10/18 08/10/18 08/10/18 07:45 07:50 07:50 08:20 Temp 97.7 97.7 Pulse 92 79 Resp 22 B/P (MAP) 122/49 (73) 98/63 (75) Pulse Ox 98 95 O2 Delivery Room Air Room Air Room Air 08/10/18 10:50 Temp 97.8 97.8 Pulse 77 Resp 18 B/P (MAP) 106/54 (71) Pulse Ox 98 Intake and Output 08/09/18 08/09/18 08/10/18 15:00 23:00 07:00 Intake Total 2350 ml 350 ml Output Total 650 ml Balance 1700 ml 350 ml SUSAN BANERJEE MD Aug 10, 2018 12:04
--- NOTE | 2018-08-10 13:43 | CARD ---
MR#: [id number] Date of Study: 08/10/2018 Ordering Physician: CHUCK BARBOSA, Referring Physician: SUSAN BANERJEE, Tech: [place] Szymanski RDCS APPROVED REPORT INDICATION Chest Pain Reason : Patient complained of shortness of breath PROCEDURE The patient underwent an Exercise Stress Test using the Rowdy Protocol. Blood pressure, heart rate, a nd EKG were monitored. An Echocardiogram was performed by remote broadcast technician in four stages in quad fashion. At peak stress four se lected images were obtained and placed side by side with resting images for comparison. STRESS ECHO FINDINGS The resting Echocardiogram showed normal left ventricular systolic contractility with an estimated Ej ection Fraction of about 60 %. The Resting Echocardiogram showed normal augmentation of myocardial wall segments using a 16 segment model. The Stress Echocardiogram showed normal augmentation of myocardial wall segments using a 16 segment m han. The Stress Echocardiogram left ventricular systolic contractility has an estimated Ejection Fraction of about 65%. Test Type: Exercise Stress Nurse/Tech: Brenda Zimmerman R.N. Test Indications: c/p Cardiac History and Allergies: see ehr Medications: see ehr Medical History: see ehr Resting ECG: SR Resting Heart Rate: 82 bpm Resting Blood Pressure: 98/53mmHg Pretest Chest Pain: No chest pain Nurse/Tech Notes S1S2, lungs CTA Stress Symptoms dyspnea, fatigue POST EXERCISE Reason for Termination: Reached target heart rate Target HR: Yes Max HR: 175 bpm 97% of Maximum Predicted HR: 180 bpm Exercise duration: 6 min:sec, 2 Stage Exercise capacity: 7METs Max Blood Pressure: 138/52mmHg Blood Pressure response to exercise: Normal blood pressure response during stress. Heart Rate response to exercise: wnl Chest Pain: No. Arrhythmia: No. noted [address] Change: No. RESTING ECG Rhythm: Sinus STRESS ECG Rhythm: Sinus Tachycardia Stress EKG shows no significant changes. Preliminary Notification Critical Value: No <Conclusion> 1. Average exercise capacity with 7 Mets achieved. Normal HR/BP response. 2. Normal resting and stress wall motion and EF. Appropriate EF augmenation. 3. Low risk study Signed by : Payam Priest, Electronically Approved : 08/10/2018 13:42:59
[2018-08-10 14:18] VITALS: BP 105/68
[2018-08-10] MEDS: CALCIUM CARBONATE 500 MG TAB.CHEW PO PRN (14:24)
[2018-08-10] MEDS ORDERED: LEVOTHYROXINE 100 MCG TABLET PO ONE (14:45)
[2018-08-10] MEDS ORDERED: LEVOTHYROXINE 100 MCG TABLET PO SCH (15:00)
[2018-08-10] MEDS: ALPRAZolam 0.5 MG TABLET PO PRN (15:12)
--- NOTE | 2018-08-10 16:23 | DISCH ---
DISCHARGE INSTRUCTIONS Condition on Discharge Condition on Discharge: Stable Activity After Discharge Activity Instructions for Disc: Activity as tolerated Exercise Instruction after Dis: Walk 15 min, 3 x per day Diet after Discharge Diet after Discharge: Cardiac Checks after Discharge Checks after discharge: Check blood press - daily Contacting the DRKristal after DC Call your doctor for: If your condition worsens SUSAN BANERJEE MD Aug 10, 2018 16:23
--- NOTE | 2018-08-10 16:23 | PDOC3 ---
Discharge Summary Date of Admission: Aug 09, 2018 Date of Discharge: Aug 10, 2018 Follow-Up: 3-5 days Admitting Diagnosis comment: discharge diagnosis History of Present Illness Assessment/Plan Assessment/Plan IMPRESSION 1. CHEST PAIN 2. Tobacco abuse 3. morbid obesity 4. Charlene's thyroiditis 5. anxiety disorder with panic attacks plan 1. cvc icu 2. cardiology consult reviewed 3. serial troponin i 4. iv protonix 5. need copy of recent echo 6. sq lovenox dvt prophylaxis d/c stress test today, low risk Vitals Vitals Vital Signs Date Time Temp Pulse Resp B/P (MAP) Pulse Ox O2 Delivery O2 Flow Rate FiO2 08/10/18 10:50 97.8 77 18 106/54 (71) 98 97.8 08/10/18 08:20 Room Air Physical Exam General: Alert, Oriented X3, Cooperative, No acute distress Heart: Regular rate (SRno significant ectopies), Normal S1, Normal S2, No murmurs Lungs: Clear Abdomen: Soft, No tenderness Extremities: No cyanosis, No edema Skin: No breakdown, No significant lesion Labs LABS Nurse/Tech Notes S1S2, lungs CTA Stress Symptoms dyspnea, fatigue POST EXERCISE Reason for Termination: Reached target heart rate Target HR: Yes Max HR: 175 bpm 97% of Maximum Predicted HR: 180 bpm Exercise duration: 6 min:sec, 2 Stage Exercise capacity: 7METs Max Blood Pressure: 138/52mmHg Blood Pressure response to exercise: Normal blood pressure response during stress. Heart Rate response to exercise: wnl Chest Pain: No. Arrhythmia: No. noted [address] Change: No. RESTING ECG Rhythm: Sinus STRESS ECG Rhythm: Sinus Tachycardia Stress EKG shows no significant changes. Preliminary Notification Critical Value: No <Conclusion> 1. Average exercise capacity with 7 Mets achieved. Normal HR/BP response. 2. Normal resting and stress wall motion and EF. Appropriate EF augmenation. 3. Low risk study Signed by : Payam Priest, Electronically Approved : 08/10/2018 13:42:59 FINAL DIAGNOSIS Problems Medical Problems: (1) Chest pain Status: Acute Brief Hospital Course Ms. Zhong is a 38 old [sex] who presented with [chest pain ] CONDITION AT DISCHARGE: Improved Discharge Medications Current Medications Iohexol (Omnipaque 300 Mg/ml) 75 ml 1X ONCE IV ; Start 08/09/18 at 10:45; Stop 08/09/18 at 10:46; Status DC Info (CONTRAST GIVEN -- Rx MONITORING) 1 each PRN DAILY PRN MC SEE COMMENTS; Start 08/09/18 at 10:45; Stop 08/11/18 at 10:44 Sodium Chloride 1,000 ml @ 1,000 mls/hr 1X ONCE IV Last administered on at 11:30; Start 08/09/18 at 11:15; Stop 08/09/18 at 12:14; Status DC Alprazolam (Xanax) 0.5 mg PRN Q8HRS PRN PO ANXIETY / AGITATION Last administered on 08/10/18at 15:12; Start 08/09/18 at 15:15 Cyclobenzaprine HCl (Flexeril) 10 mg PRN TID PRN PO MUSCLE PAIN; Start at 17:00 Losartan Potassium (Cozaar) 50 mg DAILY PO ; Start 08/10/18 at 09:00 Non-Formulary Medication (Albuterol Sulfate (Proair Hfa Inhaler)) 1 puff PRN Q6HRS PRN INH SHORTNESS OF BREATH; Start 08/09/18 at 17:00; Stop 08/09/18 at 17 :08; Status DC Doxycycline Hyclate (Vibra-Tab) 100 mg BID PO ; Start 08/10/18 at 21:01 Non-Formulary Medication (Fluticasone Propionate (Flovent 110MCG Hfa)) 2 puff BID IH ; Start 08/09/18 at 21:00; Stop 08/09/18 at 21:00; Status DC Magnesium Oxide (Magnesium Oxide) 400 mg QHS PO Last administered on 08/09/18at 21:45; Start 08/09/18 at 21:00 Montelukast Sodium (Singulair) 10 mg QHS PO Last administered on 08/09/18at 21: 46; Start 08/09/18 at 21:00 Naproxen (Naprosyn) 250 mg PRN BID PRN PO INFLAMMATION; Start 08/09/18 at 17:00 Pantoprazole Sodium (Protonix) 40 mg DAILYAC PO Last administered on 08/10/18at 15:05; Start 08/10/18 at 07:30 Polyethylene Glycol (miraLAX PACKET) 17 gm PRN DAILY PRN PO CONSTIPATION; Start 08/09/18 at 16:56 Albuterol Sulfate (Ventolin Neb Soln) 2.5 mg PRN Q6HRS PRN NEB SHORTNESS OF BREATH; Start 08/09/18 at 17:15 Budesonide (Pulmicort) 0.5 mg RTBID NEB Last administered on 08/10/18at 08:18; Start 08/09/18 at 20:00 Fluticasone Propionate (Flonase) 2 spray PRN DAILY PRN NS ALLERGIES; Start 08/09/18 at 20:15 Calcium Carbonate/ Glycine (Tums) 500 mg PRN Q2HR PRN PO INDIGESTION Last administered on 08/10/18at 14:24; Start 08/09/18 at 20:15 Al Hydroxide/Mg Hydroxide (Mylanta Plus Xs) 30 ml PRN Q2HR PRN PO HEARTBURN / GAS; Start 08/09/18 at 20:15 Pantoprazole Sodium (Protonix) 40 mg 1X ONCE PO Last administered on at 21:45; Start 08/09/18 at 20:15; Stop 08/09/18 at 20:16; Status DC Enoxaparin Sodium (Lovenox 40mg Syringe) 40 mg Q24H SQ Last administered on 08/09/18at 22:16; Start 08/09/18 at 22:00; Stop 08/10/18 at 14:59; Status DC Levothyroxine Sodium (Synthroid) 200 mcg DAILY06 PO ; Start 08/10/18 at 15:00 Levothyroxine Sodium (Synthroid) 200 mcg 1X ONCE PO Last administered on at 15:05; Start 08/10/18 at 14:45; Stop 08/10/18 at 14:48; Status DC Enoxaparin Sodium (Lovenox 40mg Syringe) 40 mg Q12H SQ ; Start 08/10/18 at 21:00 Active Scripts Active Naproxen 250 Mg Tablet 250 Mg PO BID PRN Cyclobenzaprine Hcl 10 Mg Tablet 10 Mg PO TID PRN Reported Levothyroxine Sodium 200 Mcg Tablet 1 Tab PO DAILY Proair Hfa Inhaler (Albuterol Sulfate) 8.5 Gm Hfa.aer.ad 1 Puff INH PRN Q6HRS PRN Flovent 110MCG Hfa (Fluticasone Propionate) 12 Gm Aer.w.adap 2 Puff IH BID Miralax (Polyethylene Glycol 3350) 17 Gm Powd.pack 1 Packet PO PRN PRN Magnesium (Magnesium Oxide) 400 Mg Capsule 1 Cap PO HS PRN Protonix (Pantoprazole Sodium) 20 Mg Tablet.dr 40 Mg PO DAILY Montelukast Sodium Tablet (Montelukast Sodium) 10 Mg Tablet 1 Tab PO HS Losartan Potassium 50 Mg Tablet 50 Mg PO DAILY Doxycycline Hyclate 100 Mg Capsule 1 Cap PO BID Vital Signs Vital Signs Date Time Temp Pulse Resp B/P (MAP) Pulse Ox O2 Delivery O2 Flow Rate FiO2 08/10/18 14:20 Room Air 08/10/18 14:18 97.7 18 105/68 (80) 98 97.7 08/10/18 10:50 77 Labs Laboratory Tests Test 08/09/18 10:30 08/09/18 11:00 08/09/18 15:40 08/10/18 05:15 White Blood Count 12.8 x10^3/uL (4.0-11.0) 10.3 x10^3/uL (4.0-11.0) Red Blood Count 4.72 x10^6/uL (3.50-5.40) 4.50 x10^6/uL (3.50-5.40) Hemoglobin 14.1 g/dL (12.0-15.5) 13.3 g/dL (12.0-15.5) Hematocrit 41.1 % (36.0-47.0) 39.3 % (36.0-47.0) Mean Corpuscular Volume 87 fL (79-100) 87 fL (79-100) Mean Corpuscular Hemoglobin 30 pg (25-35) 30 pg (25-35) Mean Corpuscular Hemoglobin Concent 34 g/dL (31-37) 34 g/dL (31-37) Red Cell Distribution Width 13.7 % (11.5-14.5) 14.1 % (11.5-14.5) Platelet Count 336 x10^3/uL (140-400) 294 x10^3/uL (140-400) Neutrophils (%) (Auto) 71 % (31-73) 63 % (31-73) Lymphocytes (%) (Auto) 18 % (24-48) 24 % (24-48) Monocytes (%) (Auto) 9 % (0-9) 10 % (0-9) Eosinophils (%) (Auto) 1 % (0-3) 2 % (0-3) Basophils (%) (Auto) 1 % (0-3) 1 % (0-3) Neutrophils # (Auto) 9.1 x10^3uL (1.8-7.7) 6.5 x10^3uL (1.8-7.7) Lymphocytes # (Auto) 2.3 x10^3/uL (1.0-4.8) 2.4 x10^3/uL (1.0-4.8) Monocytes # (Auto) 1.2 x10^3/uL (0.0-1.1) 1.1 x10^3/uL (0.0-1.1) Eosinophils # (Auto) 0.1 x10^3/uL (0.0-0.7) 0.2 x10^3/uL (0.0-0.7) Basophils # (Auto) 0.1 x10^3/uL (0.0-0.2) 0.1 x10^3/uL (0.0-0.2) Prothrombin Time 12.5 SEC (11.7-14.0) Prothromb Time International Ratio 1.0 (0.8-1.1) Activated Partial Thromboplast Time 31 SEC (24-38) Sodium Level 139 mmol/L (136-145) 139 mmol/L (136-145) Potassium Level 3.4 mmol/L (3.5-5.1) 3.5 mmol/L (3.5-5.1) Chloride Level 99 mmol/L (98-107) 101 mmol/L (98-107) Carbon Dioxide Level 29 mmol/L (21-32) 28 mmol/L (21-32) Anion Gap 11 (6-14) 10 (6-14) Blood Urea Nitrogen 11 mg/dL (7-20) 13 mg/dL (7-20) Creatinine 1.2 mg/dL (0.6-1.0) 1.0 mg/dL (0.6-1.0) Estimated GFR (Cockcroft-Gault) 49.8 61.4 BUN/Creatinine Ratio 9 (6-20) Glucose Level 103 mg/dL (70-99) 85 mg/dL (70-99) Calcium Level 9.5 mg/dL (8.5-10.1) 8.8 mg/dL (8.5-10.1) Magnesium Level 2.2 mg/dL (1.8-2.4) Total Bilirubin 0.8 mg/dL (0.2-1.0) Aspartate Amino Transf (AST/SGOT) 10 U/L (15-37) Alanine Aminotransferase (ALT/SGPT) 25 U/L (14-59) Alkaline Phosphatase 105 U/L (46-116) Creatine Kinase 52 U/L (26-192) Creatine Kinase MB (Mass) 0.7 ng/mL (0.0-3.6) Creatine Kinase MB Relative Index % (0-4) Troponin I Quantitative < 0.017 ng/mL (0.000-0.055) < 0.017 ng/mL (0.000-0.055) PP-Vra-H-Type Natriuretic Peptide 45 pg/mL (0-124) Total Protein 8.7 g/dL (6.4-8.2) Albumin 4.2 g/dL (3.4-5.0) Albumin/Globulin Ratio 0.9 (1.0-1.7) Lipase 114 U/L (73-393) Thyroid Stimulating Hormone (TSH) 7.244 uIU/mL (0.358-3.74) Free Thyroxine 1.03 ng/dL (0.76-1.46) Urine Collection Type Unknown Urine Color Yellow Urine Clarity Clear Urine pH 6.5 Urine Specific [place] <=1.005 Urine Protein Negative mg/dL (NEG-TRACE) Urine Glucose (UA) Negative mg/dL (NEG) Urine Ketones (Stick) Negative mg/dL (NEG) Urine Blood Large (NEG) Urine Nitrite Negative (NEG) Urine Bilirubin Negative (NEG) Urine Urobilinogen Dipstick 0.2 mg/dL (0.2 mg/dL) Urine Leukocyte Esterase Negative (NEG) Urine RBC Rare /HPF (0-2) Urine WBC 0 /HPF (0-4) Urine Squamous Epithelial Cells Few /LPF Urine Bacteria 0 /HPF (0-FEW) Lactic Acid Level 1.5 mmol/L (0.4-2.0) Triglycerides Level 106 mg/dL (0-150) Cholesterol Level 112 mg/dL (0-200) LDL Cholesterol, Calculated 45 mg/dL (0-100) VLDL Cholesterol, Calculated 21 mg/dL (0-40) Non-HDL Cholesterol Calculated 66 mg/dL (0-129) HDL Cholesterol 46 mg/dL (40-60) Cholesterol/HDL Ratio 2.4 Laboratory Tests Test 08/10/18 05:15 White Blood Count 10.3 x10^3/uL (4.0-11.0) Red Blood Count 4.50 x10^6/uL (3.50-5.40) Hemoglobin 13.3 g/dL (12.0-15.5) Hematocrit 39.3 % (36.0-47.0) Mean Corpuscular Volume 87 fL (79-100) Mean Corpuscular Hemoglobin 30 pg (25-35) Mean Corpuscular Hemoglobin Concent 34 g/dL (31-37) Red Cell Distribution Width 14.1 % (11.5-14.5) Platelet Count 294 x10^3/uL (140-400) Neutrophils (%) (Auto) 63 % (31-73) Lymphocytes (%) (Auto) 24 % (24-48) Monocytes (%) (Auto) 10 % (0-9) Eosinophils (%) (Auto) 2 % (0-3) Basophils (%) (Auto) 1 % (0-3) Neutrophils # (Auto) 6.5 x10^3uL (1.8-7.7) Lymphocytes # (Auto) 2.4 x10^3/uL (1.0-4.8) Monocytes # (Auto) 1.1 x10^3/uL (0.0-1.1) Eosinophils # (Auto) 0.2 x10^3/uL (0.0-0.7) Basophils # (Auto) 0.1 x10^3/uL (0.0-0.2) Sodium Level 139 mmol/L (136-145) Potassium Level 3.5 mmol/L (3.5-5.1) Chloride Level 101 mmol/L (98-107) Carbon Dioxide Level 28 mmol/L (21-32) Anion Gap 10 (6-14) Blood Urea Nitrogen 13 mg/dL (7-20) Creatinine 1.0 mg/dL (0.6-1.0) Estimated GFR (Cockcroft-Gault) 61.4 Glucose Level 85 mg/dL (70-99) Calcium Level 8.8 mg/dL (8.5-10.1) Troponin I Quantitative < 0.017 ng/mL (0.000-0.055) Triglycerides Level 106 mg/dL (0-150) Cholesterol Level 112 mg/dL (0-200) LDL Cholesterol, Calculated 45 mg/dL (0-100) VLDL Cholesterol, Calculated 21 mg/dL (0-40) Non-HDL Cholesterol Calculated 66 mg/dL (0-129) HDL Cholesterol 46 mg/dL (40-60) Cholesterol/HDL Ratio 2.4 Allergies Allergies Coded Allergies Type Severity Reaction Last Updated Verified gabapentin Allergy Unknown Rash 08/09/18 Yes Disposition/Orders: D/C to Home Patient Instructions d/c planning 37 min SUSAN BANERJEE MD Aug 10, 2018 16:23
[2018-08-10] MEDS ORDERED: ALPR0.5T6 PO (16:27)
[2018-08-10] MEDS ORDERED: ENOXAPARIN 40 MG/0.4 ML SYRINGE. SQ SCH (21:00)
[2018-08-10] MEDS ORDERED: DOXYCYCLINE HYCLATE 100 MG TABLET PO SCH (21:01)
== END 2018-08-10 17:05 | disposition home or self-care (01) | DRG 313 ==
LOC: ER 10:25 → CVICU 13:31
PROVIDERS: ADMIT Family Medicine; ATTEND Family Medicine
PROC: 5A09357 Assistance with Respiratory Ventilation, Less than 24 Consecutive Hours, Continuous Positive Airway Pressure (ICD-10-PCS; principal; 2018-08-09)
DX: R07.9 Chest pain, unspecified (principal); Z68.41 Body mass index [BMI] 40.0-44.9, adult; E06.3 Autoimmune thyroiditis; E66.01 Morbid (severe) obesity due to excess calories; F17.210 Nicotine dependence, cigarettes, uncomplicated; F41.0 Panic disorder [episodic paroxysmal anxiety]; G47.33 Obstructive sleep apnea (adult) (pediatric); J45.909 Unspecified asthma, uncomplicated; K21.9 Gastro-esophageal reflux disease without esophagitis; M19.90 Unspecified osteoarthritis, unspecified site; Z82.49 Family history of ischemic heart disease and other diseases of the circulatory system; Z86.32 Personal history of gestational diabetes; Z90.49 Acquired absence of other specified parts of digestive tract; Z79.899 Other long term (current) drug therapy
CPT/HCPCS: 36415; 71275; 80048; 80053; 80061; 81001; 82550; 82553; 83605; 83690; 83735; 83880; 84439; 84443; 84484; 85025; 85610; 85730; 93005; 93017; 93350; 94640; 94760; 96360; J1650; J7030; J7626; 99285-25

== ENCOUNTER 2018-09-08 11:31 | Emergency (ER) | payer BC ==
[~2018-09-08] VITALS: Ht 162.6 cm; Wt 110.2 kg
[~2018-09-08 11:31] MED LIST changes: +ALPR0.5T6 PO; +DOXY100C2 PO; +FLUT100D IH; +FLUT12AE IH; +LEVO200T5 PO; +LOSA-73 PO; +MAGN400C PO; +MONT10TA9 PO; +PANT20TA2 PO; +POLY17PO29 PO; +PROAIR HFA8.5 GM INH
--- NOTE | 2018-09-08 11:58 | RAD ---
AP and Lateral Views of the Chest 09/08/2018 11:39 AM Indication: COUGH X 1 WEEK Comparison: CT angiography of the chest August 09, 2018 Findings: There is no focal consolidation or infiltrate identified. The cardiomediastinal silhouette is within normal limits. There is no evidence of pneumothorax or pleural effusion. No acute osseous abnormalities are identified. Impression: No evidence of acute cardiopulmonary process. Electronically signed by: Rubén Atkins MD (09/08/2018 11:54 AM) [id number]
[2018-09-08] MEDS ORDERED: ASPIRIN 325 MG TABLET PO ONE (12:30)
[2018-09-08 13:09] LABS: BILIRUBIN,URINE NEGATIVE (NEG); CLARITY,URINE CLEAR; COLOR,URINE YELLOW; NITRITE,URINE NEGATIVE (NEG); PROTEIN,URINE NEGATIVE (NEG-TRACE); UROBILINOGEN,URINE 0.2 mg/dL (0.2 mg/dL)
[2018-09-08 13:13] LABS: SQUAMOUS EPITHELIAL CELL,UR MOD /LPF
[2018-09-08 13:14] LABS: BACTERIA,URINE 0 /HPF (0-FEW); RBC,URINE 0 /HPF (0-2); WBC,URINE 0 /HPF (0-4)
[2018-09-08 13:15] LABS: BARBITURATES NEG (NEG); BENZODIAZEPINES NEG (NEG); CANNABINOIDS NEG (NEG); COCAINE NEG (NEG); METHADONE NEG (NEG); OPIATES NEG (NEG); PHENCYCLIDINE NEG (NEG)
[2018-09-08 13:22] LABS: AMPHETAMINE/METHAMPHETAMINE NEG (NEG)
--- NOTE | 2018-09-08 13:34 | EKG ---
[facility] [address] [place] [address] Test Date: 2018-09-08 Test Time: 13:21:17 Pat Name: CORINA STEIN Department: Room: Gender: F Records Custodian: [place] : 1980 Requested By: REVA LOPEZ Order Number: [id number] Reading MD: Payam Priest MD Measurements Intervals [place] Rate: 83 P: 32 WV: 152 QRS: 16 QRSD: 78 T: 25 QT: 368 QTc: 438 Interpretive Statements SINUS RHYTHM Electronically Signed On 09-08-2018 22:24:03 [employer]REL WATERER by Payam Priset MD
[2018-09-08 13:35] LABS: BASO # 0.1 x10^3/uL (0.0-0.2); BASO % 1 % (0-3); EOS # 0.2 x10^3/uL (0.0-0.7); EOS % 3 % (0-3); HEMATOCRIT 39.9 % (36.0-47.0); LYMPH % 22 % (24-48); MEAN CORPUSCULAR HEMOGLOBIN 31 pg (25-35); MEAN CORPUSCULAR HGB CONC 35 g/dL (31-37); MEAN CORPUSCULAR VOLUME 87 fL (79-100); MONO # 0.9 x10^3/uL (0.0-1.1); MONO % 10 % (0-9); NEUT # 6.1 x10^3uL (1.8-7.7); NEUT % 65 % (31-73); PLATELET COUNT 304 x10^3/uL (140-400); RED BLOOD COUNT 4.59 x10^6/uL (3.50-5.40); RED CELL DISTRIBUTION WIDTH 13.9 % (11.5-14.5); WHITE BLOOD COUNT 9.4 x10^3/uL (4.0-11.0)
[2018-09-08 13:44] LABS: INFLUENZA A PATIENT NEGATIVE (NEGATIVE); INFLUENZA B PATIENT NEGATIVE (NEGATIVE)
[2018-09-08 13:44] LABS: PROTHROMBIN TIME PATIENT 12.3 SEC (11.7-14.0)
[2018-09-08 13:57] LABS: CALCIUM 9.6 mg/dL (8.5-10.1); CREATININE 1.1 mg/dL (0.6-1.0)
[2018-09-08 14:01] LABS: ALBUMIN 3.8 g/dL (3.4-5.0); MAGNESIUM 2.1 mg/dL (1.8-2.4); TOTAL BILIRUBIN 0.3 mg/dL (0.2-1.0); TOTAL PROTEIN 7.6 g/dL (6.4-8.2)
--- NOTE | 2018-09-08 15:30 | PDOC2 ---
CARDIAC CONSULT DATE OF CONSULT Date of Consult DATE: 09/08/18 TIME: 15:26 REASON FOR CONSULT Reason for Consult: cp REFERRING PHYSICIAN Referring Physician: Boby SOURCE Source: Chart review, Patient HISTORY OF PRESENT ILLNESS HISTORY OF PRESENT ILLNESS This is a pleasant 38 yo female admitted for complains of chest pain. This chest pain is mainly to her left lower rib cage. This is sore which happens intermittently and also reproducible with palpation. There is no associated exertional CP and non radiating. It does hurt a little with deep breathing and not SOA per se. She starting to blame it on her fibromyalgia. However she has been having alternating bouts of diarrhea and constipation. She had BM this morning and her left rib cage discomfort got better afterwards. She is suppose to see her GI MD Dr. Haji at [facility] tomorrow. Denies any nausea, no palpiations or diaphoresis. Denies any falls or any recent injury nor recent long distance travel. She has had stress test several weeks and tolerated this procedure well without any abnormality. PAST MEDICAL HISTORY Past Medical History Cardiovascular: No pertinent hx Pulmonary: Asthma, Other (SERENA) CENTRAL NERVOUS SYSTEM: Other (No pertinent history) GI: GERD Heme/Onc: No pertinent hx Hepatobiliary: No pertinent hx Musculoskeletal: Osteoarthritis, Other (obesity) Rheumatologic: No pertinent hx Infectious disease: No pertinent hx ENT: No pertinent hx Renal/: No pertinent hx Endocrine: Diabetes (gestational), Hypothyroidism (agustina) Dermatology: No pertinent hx SOCIAL HISTORY Smoke: <1 pack per day PAST SURGICAL HISTORY Past Surgical History Cholecystectomy, Other (left knee surgery) FAMILY HISTORY Family History noncontributory SOCIAL HISTORY Smoke: <1 pack per day ALCOHOL: none Drugs: None Lives: with Family CURRENT MEDICATIONS CURRENT MEDICATIONS Current Medications Medications (Trade) Dose Ordered Sig/Xenia Route PRN Reason Start Time Stop Time Status Last Admin Dose Admin Aspirin (Jeremy Aspirin) 325 mg 1X ONCE PO 09/08/18 12:30 09/08/18 12:31 DC 09/08/18 13:24 ALLERGIES ALLERGIES: Coded Allergies: gabapentin (Verified Allergy, Unknown, Rash, 08/09/18) ROS Review of System 14 point ROS evaluated with pertinent positives noted per HPI PHYSICAL EXAM General: Alert, Oriented X3, Cooperative, No acute distress HEENT: Atraumatic, Mucous membr. moist/pink Lungs: Clear to auscultation, Normal air movement Heart: Regular rate (SR), Normal S1, Normal S2, No murmurs Abdomen: Soft, No tenderness, Other (obese) Extremities: No cyanosis, No edema Skin: No breakdown, No significant lesion Neuro: Normal speech, Sensation intact Psych/Mental Status: Mental status NL, Mood NL MUSCULOSKELETAL: Full range of motion without pain VITALS VITALS Vital Signs Date Time Temp Pulse Resp B/P (MAP) Pulse Ox O2 Delivery O2 Flow Rate FiO2 09/08/18 11:46 98.0 107 18 133/90 (104) 99 Room Air 98.0 LABS Lab: Laboratory Tests Test 09/08/18 11:40 09/08/18 13:02 09/08/18 13:30 Urine Collection Type Unknown Urine Color Yellow Urine Clarity Clear Urine pH 7.0 Urine Specific [place] <=1.005 Urine Protein Negative mg/dL (NEG-TRACE) Urine Glucose (UA) Negative mg/dL (NEG) Urine Ketones (Stick) Negative mg/dL (NEG) Urine Blood Negative (NEG) Urine Nitrite Negative (NEG) Urine Bilirubin Negative (NEG) Urine Urobilinogen Dipstick 0.2 mg/dL (0.2 mg/dL) Urine Leukocyte Esterase Negative (NEG) Urine RBC 0 /HPF (0-2) Urine WBC 0 /HPF (0-4) Urine Squamous Epithelial Cells Mod /LPF Urine Bacteria 0 /HPF (0-FEW) Urine Opiates Screen Neg (NEG) Urine Methadone Screen Neg (NEG) Urine Barbiturates Neg (NEG) Urine Phencyclidine Screen Neg (NEG) Urine Amphetamine/Methamphetamine Neg (NEG) Urine Benzodiazepines Screen Neg (NEG) Urine Cocaine Screen Neg (NEG) Urine Cannabinoids Screen Neg (NEG) Urine Ethyl Alcohol Neg (NEG) Influenza Type A Antigen Negative (NEGATIVE) Influenza Type B Antigen Negative (NEGATIVE) White Blood Count 9.4 x10^3/uL (4.0-11.0) Red Blood Count 4.59 x10^6/uL (3.50-5.40) Hemoglobin 14.0 g/dL (12.0-15.5) Hematocrit 39.9 % (36.0-47.0) Mean Corpuscular Volume 87 fL (79-100) Mean Corpuscular Hemoglobin 31 pg (25-35) Mean Corpuscular Hemoglobin Concent 35 g/dL (31-37) Red Cell Distribution Width 13.9 % (11.5-14.5) Platelet Count 304 x10^3/uL (140-400) Neutrophils (%) (Auto) 65 % (31-73) Lymphocytes (%) (Auto) 22 % (24-48) Monocytes (%) (Auto) 10 % (0-9) Eosinophils (%) (Auto) 3 % (0-3) Basophils (%) (Auto) 1 % (0-3) Neutrophils # (Auto) 6.1 x10^3uL (1.8-7.7) Lymphocytes # (Auto) 2.0 x10^3/uL (1.0-4.8) Monocytes # (Auto) 0.9 x10^3/uL (0.0-1.1) Eosinophils # (Auto) 0.2 x10^3/uL (0.0-0.7) Basophils # (Auto) 0.1 x10^3/uL (0.0-0.2) Prothrombin Time 12.3 SEC (11.7-14.0) Prothromb Time International Ratio 1.0 (0.8-1.1) Sodium Level 139 mmol/L (136-145) Potassium Level 4.0 mmol/L (3.5-5.1) Chloride Level 101 mmol/L (98-107) Carbon Dioxide Level 27 mmol/L (21-32) Anion Gap 11 (6-14) Blood Urea Nitrogen 6 mg/dL (7-20) Creatinine 1.1 mg/dL (0.6-1.0) Estimated GFR (Cockcroft-Gault) 55.0 BUN/Creatinine Ratio 5 (6-20) Glucose Level 91 mg/dL (70-99) Calcium Level 9.6 mg/dL (8.5-10.1) Magnesium Level 2.1 mg/dL (1.8-2.4) Total Bilirubin 0.3 mg/dL (0.2-1.0) Aspartate Amino Transf (AST/SGOT) 15 U/L (15-37) Alanine Aminotransferase (ALT/SGPT) 30 U/L (14-59) Alkaline Phosphatase 91 U/L (46-116) Troponin I Quantitative < 0.017 ng/mL (0.000-0.055) BO-Rcc-M-Type Natriuretic Peptide 19 pg/mL (0-124) Total Protein 7.6 g/dL (6.4-8.2) Albumin 3.8 g/dL (3.4-5.0) Albumin/Globulin Ratio 1.0 (1.0-1.7) Lipase 111 U/L (73-393) Thyroid Stimulating Hormone (TSH) 3.452 uIU/mL (0.358-3.74) STRESS TEST STRESS TEST <Conclusion> sTRESS ECHO 1. Average exercise capacity with 7 Mets achieved. Normal HR/BP response. 2. Normal resting and stress wall motion and EF. Appropriate EF augmentation. 3. Low risk study DATE: 08/10/18 1342 ASSESSMENT/PLAN ASSESSMENT/PLAN Atypical CP possibly GI, suspicious for IBS Fibromyalgia Tobaccoism Morbid obesity Recommendations 1. No further cardiac testing. 2. Pt does have follow up with Dr. Adithya BERG tomorrow. Defer to PCP 3. Smoking cessation CHUCK BARBOSA APRN Sep 08, 2018 15:29
[2018-09-08] MEDS ORDERED: NITROGLYCERIN SUBLINGUAL 0.4 MG BOTTLE OF 25. SL PRN (16:00)
[2018-09-08] MEDS ORDERED: ACETAMINOPHEN 325 MG TABLET. PO PRN (16:00)
[2018-09-08] MEDS ORDERED: MORPHINE SULFATE 4 MG/ML VIAL. IV PRN (16:00)
[2018-09-08] MEDS ORDERED: ONDANSETRON PF 4 MG/2 ML VIAL. IV PRN (16:00)
--- NOTE | 2018-09-08 16:06 | PHYS DOC ---
Past Medical History Past Medical History: Asthma, Hypothyroid, Other Additional Past Medical Histor: sleep apnea, GESTATIONAL DIABETES, HOSHIMOTOS, Fibromyalgia. Past Surgical History: Cholecystectomy, Other Additional Past Surgical Histo: orthroscopic left knee Additional Information: 1/2 PPD or less. (Down from 1 PPD.) Alcohol Use: None Drug Use: None Adult General Chief Complaint Chief Complaint: CHEST WALL PAIN HPI HPI Patient is a 38 year old female who presents today complaining of 8 out of 10 sharp intermittent substernal chest pain as well as left upper quadrant pain that has been going on for one week. Patient states sometimes when she has a bowel movement the pain gets better. Patient denies any chance she is constipated, she states she is taking [id number] medications for constipation and had a bowel movement. She states she has been following up with her own doctor for this pain she states they did lab work as well as CT of her abdomen to rule out pancreatitis last week which were negative. She states she was also seen in our ED a month ago and had a stress test which was negative. Patient is very emotional. She states she would like to find out why she has this pain. Review of Systems Review of Systems Constitutional: Denies fever or chills [] Eyes: Denies change in visual acuity, redness, or eye pain [] HENT: Denies nasal congestion or sore throat [] Respiratory: Denies cough or shortness of breath [] Cardiovascular: Reports left-sided chest pain GI: Reports left upper quadrant abdominal pain. Denies nausea, vomiting, bloody stools or diarrhea [] : Denies dysuria or hematuria [] Musculoskeletal: Denies back pain or joint pain [] Integument: Denies rash or skin lesions [] Neurologic: Denies headache, focal weakness or sensory changes [] All other systems were reviewed and found to be within normal limits, except as documented in this note. Current Medications Current Medications Current Medications Medications (Trade) Dose Ordered Sig/Xenia Start Time Stop Time Status Last Admin Dose Admin Aspirin (Jeremy Aspirin) 325 mg 1X ONCE 09/08/18 12:30 09/08/18 12:31 DC 09/08/18 13:24 325 MG Allergies Allergies Allergies Coded Allergies Type Severity Reaction Last Updated Verified gabapentin Allergy Unknown Rash 08/09/18 Yes Physical Exam Physical Exam Constitutional: Well developed, well nourished, no acute distress, non-toxic appearance. [] HENT: Normocephalic, atraumatic, bilateral external ears normal, oropharynx moist, no oral exudates, nose normal. [] Eyes: PERRLA, EOMI, conjunctiva normal, no discharge. [] Neck: Normal range of motion, no tenderness, supple, no stridor. [] Cardiovascular:Heart rate regular rhythm, no murmur [] Lungs & Thorax: Bilateral breath sounds clear to auscultation [] Abdomen: Bowel sounds normal, soft, no tenderness, no masses, no pulsatile masses. [] Skin: Warm, dry, no erythema, no rash. [] Back: No tenderness, no CVA tenderness. [] Extremities: No tenderness, no cyanosis, no clubbing, ROM intact, no edema. [] Neurologic: Alert and oriented X 3, normal motor function, normal sensory function, no focal deficits noted. [] Psychologic: Depressed mood Current Patient Data Vital Signs Vital Signs Date Time Temp Pulse Resp B/P (MAP) Pulse Ox O2 Delivery O2 Flow Rate FiO2 09/08/18 11:46 98.0 107 18 133/90 (104) 99 Room Air 98.0 Lab Values Laboratory Tests Test 09/08/18 11:40 09/08/18 13:02 09/08/18 13:30 Urine Collection Type Unknown Urine Color Yellow Urine Clarity Clear Urine pH 7.0 Urine Specific [place] <=1.005 Urine Protein Negative mg/dL (NEG-TRACE) Urine Glucose (UA) Negative mg/dL (NEG) Urine Ketones (Stick) Negative mg/dL (NEG) Urine Blood Negative (NEG) Urine Nitrite Negative (NEG) Urine Bilirubin Negative (NEG) Urine Urobilinogen Dipstick 0.2 mg/dL (0.2 mg/dL) Urine Leukocyte Esterase Negative (NEG) Urine RBC 0 /HPF (0-2) Urine WBC 0 /HPF (0-4) Urine Squamous Epithelial Cells Mod /LPF Urine Bacteria 0 /HPF (0-FEW) Urine Opiates Screen Neg (NEG) Urine Methadone Screen Neg (NEG) Urine Barbiturates Neg (NEG) Urine Phencyclidine Screen Neg (NEG) Urine Amphetamine/Methamphetamine Neg (NEG) Urine Benzodiazepines Screen Neg (NEG) Urine Cocaine Screen Neg (NEG) Urine Cannabinoids Screen Neg (NEG) Urine Ethyl Alcohol Neg (NEG) Influenza Type A Antigen Negative (NEGATIVE) Influenza Type B Antigen Negative (NEGATIVE) White Blood Count 9.4 x10^3/uL (4.0-11.0) Red Blood Count 4.59 x10^6/uL (3.50-5.40) Hemoglobin 14.0 g/dL (12.0-15.5) Hematocrit 39.9 % (36.0-47.0) Mean Corpuscular Volume 87 fL (79-100) Mean Corpuscular Hemoglobin 31 pg (25-35) Mean Corpuscular Hemoglobin Concent 35 g/dL (31-37) Red Cell Distribution Width 13.9 % (11.5-14.5) Platelet Count 304 x10^3/uL (140-400) Neutrophils (%) (Auto) 65 % (31-73) Lymphocytes (%) (Auto) 22 % (24-48) L Monocytes (%) (Auto) 10 % (0-9) H Eosinophils (%) (Auto) 3 % (0-3) Basophils (%) (Auto) 1 % (0-3) Neutrophils # (Auto) 6.1 x10^3uL (1.8-7.7) Lymphocytes # (Auto) 2.0 x10^3/uL (1.0-4.8) Monocytes # (Auto) 0.9 x10^3/uL (0.0-1.1) Eosinophils # (Auto) 0.2 x10^3/uL (0.0-0.7) Basophils # (Auto) 0.1 x10^3/uL (0.0-0.2) Prothrombin Time 12.3 SEC (11.7-14.0) Prothrombin Time INR 1.0 (0.8-1.1) Sodium Level 139 mmol/L (136-145) Potassium Level 4.0 mmol/L (3.5-5.1) Chloride Level 101 mmol/L (98-107) Carbon Dioxide Level 27 mmol/L (21-32) Anion Gap 11 (6-14) Blood Urea Nitrogen 6 mg/dL (7-20) L Creatinine 1.1 mg/dL (0.6-1.0) H Estimated GFR (Cockcroft-Gault) 55.0 BUN/Creatinine Ratio 5 (6-20) L Glucose Level 91 mg/dL (70-99) Calcium Level 9.6 mg/dL (8.5-10.1) Magnesium Level 2.1 mg/dL (1.8-2.4) Total Bilirubin 0.3 mg/dL (0.2-1.0) Aspartate Amino Transferase (AST) 15 U/L (15-37) Alanine Aminotransferase (ALT) 30 U/L (14-59) Alkaline Phosphatase 91 U/L (46-116) Troponin I Quantitative < 0.017 ng/mL (0.000-0.055) LV-Ncm-W-Type Natriuretic Peptide 19 pg/mL (0-124) Total Protein 7.6 g/dL (6.4-8.2) Albumin 3.8 g/dL (3.4-5.0) Albumin/Globulin Ratio 1.0 (1.0-1.7) Lipase 111 U/L (73-393) Thyroid Stimulating Hormone (TSH) 3.452 uIU/mL (0.358-3.74) Laboratory Tests 09/08/18 13:30 Laboratory Tests 09/08/18 13:30 EKG EKG [address] Montano sinus rhythm heart rate 83 no STEMI Radiology/Procedures Radiology/Procedures []PROCEDURE: CHEST PA & LATERAL AP and Lateral Views of the Chest 09/08/2018 11:39 AM Indication: COUGH X 1 WEEK Comparison: CT angiography of the chest August 09, 2018 Findings: There is no focal consolidation or infiltrate identified. The cardiomediastinal silhouette is within normal limits. There is no evidence of pneumothorax or pleural effusion. No acute osseous abnormalities are identified. Impression: No evidence of acute cardiopulmonary process. Electronically signed by: Rubén Chen MD (09/08/2018 11:54 AM) [facility] DICTATED and SIGNED BY: RUBÉN CHEN MD DATE: 09/08/18 1153 Course & Med Decision Making Course & Med Decision Making Pertinent Labs and Imaging studies reviewed. (See chart for details) This is a 38-year-old female patient presenting to the ED today complaining of left upper quadrant abdominal pain as well as chest pain for a week. See history of present illness, patient was worked up for her chest pain a month ago , she had a negative stress test. She was also been worked up for abdominal pain including CT of her abdomen that was done by her own doctor 1 week ago which she states was negative. Her workup is negative in the ED today including chest xray and cardiac work up. Consulted with Leena cardiology MACHINE SANDER who will follow-up with patient. Patient was admitted under Dr. Powers per her own request. Patient called me back into the room later in the evening, she was complaining about being uncomfortable in the bed and requesting to be moved upstairs to a normal bed, informed patient we do not have any open beds yet. She is also complaining stating she has restless leg syndrome and cannot be in that tiny room in the ED any longer. She is also complaining she was given food that doesn 't taste good. As we went on with the conversation she started saying she would like to be discharged. She states she believes her pain is abdominal related and nothing to do with her chest. Informed patient if she wants to leave she can sign out AMA, i gave her the risk of leaving AMA including and disability. She signed out AMA and left. She states she has an appointment with the GI doctor tomorrow. Dragon Disclaimer Dragon Disclaimer This electronic medical record was generated, in whole or in part, using a voice recognition dictation system. Departure Departure Impression: Primary Impression: Chest pain Disposition: ADMITTED INPATIENT Condition: STABLE Referrals: CORINA BARAJAS (PCP) Problem Qualifiers Primary Impression: Chest pain Chest pain type: unspecified Qualified Codes: R07.9 - Chest pain, unspecified REVA LOPEZ MEDICAL AND SCIENTIFIC ILLUSTRATOR Sep 08, 2018 16:06
[2018-09-08 16:50] VITALS: BP 157/93
== END 2018-09-08 17:10 | disposition other institution (70) ==
LOC: ER 11:31 → 2 SOUTH 15:20 → UNDOADMOB 15:20
DX: R07.2 Precordial pain (principal); R10.12 Left upper quadrant pain; J45.909 Unspecified asthma, uncomplicated; E03.9 Hypothyroidism, unspecified; G47.30 Sleep apnea, unspecified; M79.7 Fibromyalgia; F17.200 Nicotine dependence, unspecified, uncomplicated; Z90.49 Acquired absence of other specified parts of digestive tract; Z88.8 Allergy status to other drugs, medicaments and biological substances
CPT/HCPCS: 36415; 71046; 80053; 80307; 81001; 83690; 83735; 83880; 84443; 84484; 85025; 85610; 87804; 93005; 99285-25

== ENCOUNTER 2018-09-22 22:25 | Emergency (ER) | payer BC ==
[~2018-09-22] VITALS: Ht 160 cm; Wt 109.3 kg
[~2018-09-22 22:25] MED LIST changes: +ALBU2.5V8 INH; -PROAIR HFA8.5 GM INH
--- NOTE | 2018-09-22 23:51 | PHYS DOC ---
Past Medical History Past Medical History: Asthma, Hypothyroid, Other Additional Past Medical Histor: sleep apnea, GESTATIONAL DIABETES, HOSHIMOTOS, Fibromyalgia. Past Surgical History: Cholecystectomy, Other Additional Past Surgical Histo: orthroscopic left knee Alcohol Use: None Drug Use: None Adult General Chief Complaint Chief Complaint: CHEST PAIN HPI HPI Patient is a 38 year old female hx of Charlene's thyroiditis who presents with chest pain. Pt reports having back pain started about 3 days ago and chest pain which began around 2 days ago. Her pain is constant and dull aching but can be sharp occasionally. Positional changes does not seem to alleviate her pain. Denies any heartburn symptom and this pain does not associate with food intake. She was admitted to the hospital in Aug for similar experience. However , she was found to have normal cardiac stress test, EKG and CT angio were negative for PE. Pt reports chronic fatigue and GI symptoms including constipation. She believes this could be from her thyroiditis. Pt also mentions about having sinus infection recently which was treated with Bactrim. Denies N/V , F/C. Review of Systems Review of Systems Constitutional: Denies fever or chills [] Eyes: Denies change in visual acuity, redness, or eye pain [] HENT: Denies nasal congestion or sore throat [] Respiratory: Denies cough. Endorses shortness of breath (due to her sleep apnea ) [] Cardiovascular: Endorse chest pain, no palpitation. GI: Denies abdominal pain, nausea, vomiting, bloody stools or diarrhea [] : Denies dysuria or hematuria [] Musculoskeletal: Endorse mid thoracic back pain. No joint pain [] Integument: Denies rash or skin lesions [] Neurologic: Denies headache, focal weakness or sensory changes [] Complete systems were reviewed and found to be within normal limits, except as documented in this note. Current Medications Current Medications Current Medications Medications (Trade) Dose Ordered Sig/Xenia Start Time Stop Time Status Last Admin Dose Admin Aspirin (Jeremy Aspirin) 325 mg 1X ONCE 09/23/18 00:00 09/23/18 00:01 DC 09/23/18 00:12 325 MG Dexamethasone Sodium Phosphate (Decadron) 10 mg 1X ONCE 09/23/18 00:30 09/23/18 00:31 DC 09/23/18 00:46 10 MG Sodium Chloride 1,000 ml @ 1,000 mls/hr 1X ONCE 09/23/18 00:00 09/23/18 00:59 DC 09/23/18 00:13 1,000 MLS/HR Allergies Allergies Allergies Coded Allergies Type Severity Reaction Last Updated Verified gabapentin Allergy Unknown Rash 08/09/18 Yes Physical Exam Physical Exam Constitutional: Well developed, well nourished, no acute distress, non-toxic appearance. [] HENT: Normocephalic, atraumatic, bilateral external ears normal, oropharynx moist, no oral exudates, nose normal. [] Eyes: PERRL, EOMI, conjunctiva normal, no discharge. [] Neck: Normal range of motion, no tenderness, supple, no stridor. [] Cardiovascular:Heart rate regular rhythm, no murmur [] Lungs & Thorax: Bilateral breath sounds clear to auscultation [] Abdomen: Bowel sounds normal, soft.[] Skin: Warm, dry, no erythema, no rash. [] Back: No tenderness, no CVA tenderness. [] Extremities: No tenderness, no cyanosis, no clubbing, ROM intact, no edema. [] Neurologic: Alert and oriented X 3, normal motor function, normal sensory function, no focal deficits noted. [] Psychologic: Affect normal, judgement normal, mood normal. [] Current Patient Data Vital Signs Vital Signs Date Time Temp Pulse Resp B/P (MAP) Pulse Ox O2 Delivery O2 Flow Rate FiO2 09/22/18 22:50 97.9 100 20 123/82 (96) 99 Room Air 97.9 Lab Values Laboratory Tests Test 09/22/18 23:00 09/22/18 23:11 09/22/18 23:20 09/23/18 01:35 Urine Opiates Screen Neg (NEG) Urine Methadone Screen Neg (NEG) Urine Barbiturates Neg (NEG) Urine Phencyclidine Screen Neg (NEG) Urine Amphetamine/Methamphetamine Neg (NEG) Urine Benzodiazepines Screen Neg (NEG) Urine Cocaine Screen Neg (NEG) Urine Cannabinoids Screen Neg (NEG) Urine Ethyl Alcohol Neg (NEG) POC Urine HCG, Qualitative Hcg negative (Negative) White Blood Count 10.7 x10^3/uL (4.0-11.0) Red Blood Count 4.33 x10^6/uL (3.50-5.40) Hemoglobin 12.9 g/dL (12.0-15.5) Hematocrit 37.6 % (36.0-47.0) Mean Corpuscular Volume 87 fL (79-100) Mean Corpuscular Hemoglobin 30 pg (25-35) Mean Corpuscular Hemoglobin Concent 34 g/dL (31-37) Red Cell Distribution Width 13.7 % (11.5-14.5) Platelet Count 284 x10^3/uL (140-400) Neutrophils (%) (Auto) 61 % (31-73) Lymphocytes (%) (Auto) 24 % (24-48) Monocytes (%) (Auto) 10 % (0-9) H Eosinophils (%) (Auto) 4 % (0-3) H Basophils (%) (Auto) 1 % (0-3) Neutrophils # (Auto) 6.5 x10^3uL (1.8-7.7) Lymphocytes # (Auto) 2.6 x10^3/uL (1.0-4.8) Monocytes # (Auto) 1.1 x10^3/uL (0.0-1.1) Eosinophils # (Auto) 0.4 x10^3/uL (0.0-0.7) Basophils # (Auto) 0.1 x10^3/uL (0.0-0.2) Prothrombin Time 12.1 SEC (11.7-14.0) Prothrombin Time INR 0.9 (0.8-1.1) D-Dimer (Poppy) < 0.27 ug/mlFEU Sodium Level 141 mmol/L (136-145) Potassium Level 3.8 mmol/L (3.5-5.1) Chloride Level 104 mmol/L (98-107) Carbon Dioxide Level 28 mmol/L (21-32) Anion Gap 9 (6-14) Blood Urea Nitrogen 8 mg/dL (7-20) Creatinine 1.0 mg/dL (0.6-1.0) Estimated GFR (Cockcroft-Gault) 61.4 BUN/Creatinine Ratio 8 (6-20) Glucose Level 93 mg/dL (70-99) Calcium Level 9.1 mg/dL (8.5-10.1) Magnesium Level 2.0 mg/dL (1.8-2.4) Total Bilirubin 0.2 mg/dL (0.2-1.0) Aspartate Amino Transferase (AST) 14 U/L (15-37) L Alanine Aminotransferase (ALT) 30 U/L (14-59) Alkaline Phosphatase 90 U/L (46-116) Creatine Kinase 50 U/L (26-192) Creatine Kinase MB (Mass) < 0.5 ng/mL (0.0-3.6) Creatine Kinase MB Relative Index % (0-4) Troponin I Quantitative < 0.017 ng/mL (0.000-0.055) < 0.017 ng/mL (0.000-0.055) OY-Iqv-M-Type Natriuretic Peptide 26 pg/mL (0-124) Total Protein 6.9 g/dL (6.4-8.2) Albumin 3.6 g/dL (3.4-5.0) Albumin/Globulin Ratio 1.1 (1.0-1.7) Lipase 126 U/L (73-393) Laboratory Tests 09/22/18 23:20 Laboratory Tests 09/22/18 23:20 EKG EKG @2303 NSR at 98bpm, Q wave noted in III, No ST elevated Radiology/Procedures Radiology/Procedures 2 view CXR: (preliminary interpretation by ED physician): NO acute process. Course & Med Decision Making Course & Med Decision Making Pertinent Labs and Imaging studies reviewed. (See chart for details) [] Dragon Disclaimer Dragon Disclaimer This electronic medical record was generated, in whole or in part, using a voice recognition dictation system. Departure Departure Impression: Primary Impression: Chest pain Disposition: 01 HOME, SELF-CARE Condition: STABLE Referrals: CORINA BARAJAS (PCP) Patient Instructions: Chest Pain (Nonspecific), [id number], Pleurisy, Easy-to -Read Scripts Prednisone (PREDNISONE) 20 Mg Tablet 2 TAB PO DAILY, #8 TAB Start this prescription on 09/24/18 Prov: AGUSTIN RICO DO 09/23/18 Problem Qualifiers Primary Impression: Chest pain Chest pain type: unspecified Qualified Codes: R07.9 - Chest pain, unspecified AGUSTIN RICO DO Sep 22, 2018 23:51
[2018-09-22 23:54] LABS: BASO # 0.1 x10^3/uL (0.0-0.2); BASO % 1 % (0-3); EOS # 0.4 x10^3/uL (0.0-0.7); EOS % 4 % (0-3); HEMATOCRIT 37.6 % (36.0-47.0); HEMOGLOBIN 12.9 g/dL (12.0-15.5); LYMPH # 2.6 x10^3/uL (1.0-4.8); LYMPH % 24 % (24-48); MEAN CORPUSCULAR HEMOGLOBIN 30 pg (25-35); MEAN CORPUSCULAR HGB CONC 34 g/dL (31-37); MEAN CORPUSCULAR VOLUME 87 fL (79-100); MONO # 1.1 x10^3/uL (0.0-1.1); MONO % 10 % (0-9); NEUT # 6.5 x10^3uL (1.8-7.7); NEUT % 61 % (31-73); PLATELET COUNT 284 x10^3/uL (140-400); RED BLOOD COUNT 4.33 x10^6/uL (3.50-5.40); RED CELL DISTRIBUTION WIDTH 13.7 % (11.5-14.5); WHITE BLOOD COUNT 10.7 x10^3/uL (4.0-11.0)
[2018-09-23] MEDS ORDERED: IV NORMAL SALINE 1000ML BAG 1,000 ML IV ONE
[2018-09-23] MEDS ORDERED: ASPIRIN 325 MG TABLET PO ONE
[2018-09-23 00:03] LABS: PROTHROMBIN TIME PATIENT 12.1 SEC (11.7-14.0)
[2018-09-23 00:04] LABS: CALCIUM 9.1 mg/dL (8.5-10.1); GFR 61.4; POTASSIUM 3.8 mmol/L (3.5-5.1)
[2018-09-23 00:07] LABS: D-DIMER < 0.27 ug/mlFEU (0.00-0.50)
[2018-09-23 00:10] LABS: ALBUMIN 3.6 g/dL (3.4-5.0); ALBUMIN/GLOBULIN RATIO 1.1 (1.0-1.7); TOTAL BILIRUBIN 0.2 mg/dL (0.2-1.0); TOTAL PROTEIN 6.9 g/dL (6.4-8.2)
[2018-09-23 00:15] LABS: AMPHETAMINE/METHAMPHETAMINE NEG (NEG); BARBITURATES NEG (NEG); BENZODIAZEPINES NEG (NEG); CANNABINOIDS NEG (NEG); COCAINE NEG (NEG); METHADONE NEG (NEG); OPIATES NEG (NEG); PHENCYCLIDINE NEG (NEG)
[2018-09-23 00:23] LABS: CREATINE KINASE 50 U/L (26-192)
[2018-09-23] MEDS ORDERED: DEXAMETHASONE SOD PHOS 20 MG/5 ML VIAL. IV ONE (00:30)
[2018-09-23 01:04] VITALS: BP 136/63
[2018-09-23] MEDS ORDERED: PRED20TA PO (02:06)
[2018-09-23] MEDS ORDERED: KETOROLAC 15 MG/ML VIAL. ONE (02:20)
[2018-09-23] MEDS ORDERED: KETOROLAC 15 MG/ML VIAL. IV ONE (02:30)
--- NOTE | 2018-09-23 07:04 | EKG ---
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
--- NOTE | 2018-09-24 15:43 | RAD ---
Chest, PA and Lateral: Technique: PA and lateral views of the chest were obtained. History: Chest pain. Comparison: 09/08/2018. Findings: The heart and pulmonary vasculature appear within normal limits. The lungs are clear. The pleural margins are clear. Impression: No acute chest process is seen. Electronically signed by: Benny Berg MD (09/24/2018 3:39 PM) [id number]
== END 2018-09-23 02:35 | disposition home or self-care (01) ==
LOC: ER 22:25
DX: R07.89 Other chest pain (principal); M54.6 Pain in thoracic spine; E06.3 Autoimmune thyroiditis; J45.909 Unspecified asthma, uncomplicated; E03.9 Hypothyroidism, unspecified; G47.30 Sleep apnea, unspecified; Z88.8 Allergy status to other drugs, medicaments and biological substances
CPT/HCPCS: 36415; 71046; 80053; 80307; 81025; 82553; 83690; 83735; 83880; 84484; 85025; 85379; 85610; 93005; 96374; 96375; 99284; J1100; J1885; J7030

== ENCOUNTER 2018-11-25 22:24 | Emergency (ER) | payer BC ==
[~2018-11-25] VITALS: Ht 162.6 cm; Wt 106.1 kg
[~2018-11-25 22:24] MED LIST changes: +PRED20TA PO
--- NOTE | 2018-11-25 23:34 | PHYS DOC ---
Past Medical History Past Medical History: Asthma, Hypothyroid, Other Additional Past Medical Histor: sleep apnea, GESTATIONAL DIABETES, HOSHIMOTOS, Fibromyalgia. Past Surgical History: Cholecystectomy, Other Additional Past Surgical Histo: orthroscopic left knee Alcohol Use: None Drug Use: None Adult General Chief Complaint Chief Complaint: CHEST PAIN HPI HPI Patient is a 38 year old female who presents for evaluation of chest pain. Friday and Friday she slipped on ice and fell. She denies hitting her head and LOC. After the minor falls she was experiencing some upper back and neck pain and was treated by her chiropractor yesterday. Today she was shoveling snow and reports worsening in her pain. This evening she developed chest pain that she describes as dull and intermittently sharp. Certain positions exacerbate the pain as well as deep breathing. Patient reports she was worked up for chest pain a few months ago and had a stress test without acute findings. Patient denies diagnosis of hypertension, high cholesterol, and diabetes. She admits to tobacco use. Also her father had [place] with 4 stents placed when he was in his early 50s. She denies shortness of breath, palpitations, abdominal pain, nausea, vomiting, jaw pain, arm pain, diarrhea. Patient also complains of productive cough for the past several days as well as urgency, frequency, and dysuria for two weeks. Review of Systems Review of Systems Constitutional: Denies fever or chills [] Eyes: Denies change in visual acuity, redness, or eye pain [] HENT: Denies nasal congestion or sore throat [] Respiratory: Reports cough [] GI: Denies abdominal pain, nausea, vomiting, diarrhea [] : Reports frequency and dysuria, denies hematuria Musculoskeletal: Reports upper back and neck pain [] Integument: Denies rash or skin lesions [] Neurologic: Denies headache, focal weakness or sensory changes [] Complete systems were reviewed and found to be within normal limits, except as documented in this note. Current Medications Current Medications Current Medications Medications (Trade) Dose Ordered Sig/Xenia Start Time Stop Time Status Last Admin Dose Admin Aspirin (Jeremy Aspirin) 325 mg 1X ONCE 11/25/18 23:45 11/25/18 23:46 DC 11/26/18 01:04 325 MG Cephalexin HCl (Keflex) 500 mg 1X ONCE 11/26/18 00:15 11/26/18 00:16 DC 11/26/18 01:04 500 MG Ketorolac Tromethamine (Toradol 15mg Vial) 15 mg 1X ONCE 11/26/18 01:00 11/26/18 01:01 DC 11/26/18 01:05 15 MG Sodium Chloride 1,000 ml @ 1,000 mls/hr 1X ONCE 11/25/18 23:45 11/26/18 00:44 DC 11/26/18 01:05 1,000 MLS/HR Allergies Allergies Allergies Coded Allergies Type Severity Reaction Last Updated Verified gabapentin Allergy Unknown Rash 08/09/18 Yes Physical Exam Physical Exam Constitutional: Well developed, obese, no acute distress, non-toxic appearance. [] HENT: Normocephalic, atraumatic, oropharynx without erythema, no oral exudates [ ] Eyes: EOMI, conjunctiva normal, no discharge. [] Neck: Normal range of motion,no midline tenderness, paravertebral tenderness, no JVD [] Cardiovascular:Heart rate regular rhythm, no murmur [] Lungs & Thorax: Bilateral breath sounds clear to auscultation [] Abdomen: soft, no distention, no tenderness. [] Skin: Warm, dry, no erythema, no rash. [] Back: No midline tenderness, no CVA tenderness, paravertebral tenderness [] Extremities: No tenderness, ROM intact, no edema. [] Neurologic: Alert and oriented X 3, normal motor function, normal sensory function, no focal deficits noted. [] Psychologic: Affect normal, judgement normal, mood normal. [] Current Patient Data Vital Signs Vital Signs Date Time Temp Pulse Resp B/P (MAP) Pulse Ox O2 Delivery O2 Flow Rate FiO2 11/25/18 22:30 98.7 95 16 137/85 (102) 100 Room Air 98.7 Lab Values Laboratory Tests Test 11/25/18 23:05 11/25/18 23:44 White Blood Count 10.5 x10^3/uL (4.0-11.0) Red Blood Count 4.54 x10^6/uL (3.50-5.40) Hemoglobin 13.0 g/dL (12.0-15.5) Hematocrit 39.3 % (36.0-47.0) Mean Corpuscular Volume 87 fL (79-100) Mean Corpuscular Hemoglobin 29 pg (25-35) Mean Corpuscular Hemoglobin Concent 33 g/dL (31-37) Red Cell Distribution Width 14.4 % (11.5-14.5) Platelet Count 321 x10^3/uL (140-400) Neutrophils (%) (Auto) 61 % (31-73) Lymphocytes (%) (Auto) 24 % (24-48) Monocytes (%) (Auto) 11 % (0-9) H Eosinophils (%) (Auto) 3 % (0-3) Basophils (%) (Auto) 1 % (0-3) Neutrophils # (Auto) 6.4 x10^3uL (1.8-7.7) Lymphocytes # (Auto) 2.5 x10^3/uL (1.0-4.8) Monocytes # (Auto) 1.2 x10^3/uL (0.0-1.1) H Eosinophils # (Auto) 0.3 x10^3/uL (0.0-0.7) Basophils # (Auto) 0.1 x10^3/uL (0.0-0.2) Prothrombin Time 12.2 SEC (11.7-14.0) Prothrombin Time INR 0.9 (0.8-1.1) D-Dimer (Poppy) 0.40 ug/mlFEU (0.00-0.50) Sodium Level 141 mmol/L (136-145) Potassium Level 3.6 mmol/L (3.5-5.1) Chloride Level 102 mmol/L (98-107) Carbon Dioxide Level 27 mmol/L (21-32) Anion Gap 12 (6-14) Blood Urea Nitrogen 12 mg/dL (7-20) Creatinine 1.0 mg/dL (0.6-1.0) Estimated GFR (Cockcroft-Gault) 61.4 BUN/Creatinine Ratio 12 (6-20) Glucose Level 104 mg/dL (70-99) H Calcium Level 9.1 mg/dL (8.5-10.1) Magnesium Level 2.1 mg/dL (1.8-2.4) Total Bilirubin 0.4 mg/dL (0.2-1.0) Aspartate Amino Transferase (AST) 16 U/L (15-37) Alanine Aminotransferase (ALT) 30 U/L (14-59) Alkaline Phosphatase 98 U/L (46-116) Creatine Kinase 58 U/L (26-192) Creatine Kinase MB (Mass) < 0.5 ng/mL (0.0-3.6) Creatine Kinase MB Relative Index % (0-4) Troponin I Quantitative < 0.017 ng/mL (0.000-0.055) SY-Obt-L-Type Natriuretic Peptide 33 pg/mL (0-124) Total Protein 7.5 g/dL (6.4-8.2) Albumin 3.6 g/dL (3.4-5.0) Albumin/Globulin Ratio 0.9 (1.0-1.7) L Lipase 115 U/L (73-393) Urine Collection Type Unknown Urine Color Yellow Urine Clarity Cloudy Urine pH 6.5 Urine Specific [place] 1.010 Urine Protein Negative mg/dL (NEG-TRACE) Urine Glucose (UA) Negative mg/dL (NEG) Urine Ketones (Stick) Negative mg/dL (NEG) Urine Blood Negative (NEG) Urine Nitrite Negative (NEG) Urine Bilirubin Negative (NEG) Urine Urobilinogen Dipstick 0.2 mg/dL (0.2 mg/dL) Urine Leukocyte Esterase Moderate (NEG) Urine RBC Occ /HPF (0-2) Urine WBC 20-40 /HPF (0-4) Urine Squamous Epithelial Cells Few /LPF Urine Bacteria Few /HPF (0-FEW) Urine Mucus Slight /LPF Urine Test Negative (NEG) Laboratory Tests 11/25/18 23:05 Laboratory Tests 11/25/18 23:05 EKG EKG @22:34 NSR with wandering baseline, one premature ventricular complex,HR 94 bpm QRS: 76 ms QT/QTc: 348/441 ms Radiology/Procedures Radiology/Procedures [] Course & Med Decision Making Course & Med Decision Making Pertinent Labs and Imaging studies reviewed. (See chart for details) Patient presented for evaluation of atypical chest pain. She has been experiencing upper back and neck pain over last several days due to slips and falls on the ice but became more concerned when she started to have chest pain this evening after shoveling snow. Cardiac work up was negative and per patient she had formal cardiac work up in August including stress test that was negative. Her D-dimer was not elevated making PE very unlikely. Chest xray without effusions or consolidations but official read is pending. We discussed her chest discomfort is likely musculoskeletal. Her fibromyalgia could also be contributing factor. Additionally infection found on UA. Symptomatic treatment provided. Patient received Ketorolac and first dose of Keflex. She was discharged with prescription for antibiotic and muscle relaxer. Dario Disclaimer Dario Disclaimer This electronic medical record was generated, in whole or in part, using a voice recognition dictation system. Departure Departure Impression: Primary Impression: Back pain Additional Impressions: Atypical chest pain Urinary tract infection Neck pain Disposition: HOME, SELF-CARE Condition: STABLE Referrals: CORINA BARAJAS (PCP) Patient Instructions: Back Pain, Adult, [id number], Cervical Strain and Sprain with Rehab-SportsMed, Chest Wall Pain, Urinary Tract Infection, Easy-to- Read Additional Instructions: Use OTC Ibuprofen or Tylenol for any further pain Scripts Cephalexin (KEFLEX) 500 Mg Capsule 500 MG PO TID for 7 Days, #21 CAP Prov: AGUSTIN RICO DO 11/26/18 Orphenadrine Citrate (ORPHENADRINE CITRATE) 100 Mg Tablet.er 100 MG PO BID PRN for MUSCLE PAIN, #14 Prov: AGUSTIN RICO DO 11/26/18 Problem Qualifiers Primary Impression: Back pain Back pain location: thoracic back pain Chronicity: acute Back pain laterality: bilateral Qualified Codes: M54.6 - Pain in thoracic spine Additional Impressions: Urinary tract infection Urinary tract infection type: acute cystitis Hematuria presence: without hematuria Qualified Codes: N30.00 - Acute cystitis without hematuria AGUSTIN RICO DO Nov 25, 2018 23:34
[2018-11-25 23:42] LABS: BASO # 0.1 x10^3/uL (0.0-0.2); BASO % 1 % (0-3); EOS # 0.3 x10^3/uL (0.0-0.7); EOS % 3 % (0-3); HEMATOCRIT 39.3 % (36.0-47.0); LYMPH # 2.5 x10^3/uL (1.0-4.8); LYMPH % 24 % (24-48); MEAN CORPUSCULAR HEMOGLOBIN 29 pg (25-35); MEAN CORPUSCULAR HGB CONC 33 g/dL (31-37); MEAN CORPUSCULAR VOLUME 87 fL (79-100); MONO # 1.2 x10^3/uL (0.0-1.1); MONO % 11 % (0-9); NEUT # 6.4 x10^3uL (1.8-7.7); NEUT % 61 % (31-73); PLATELET COUNT 321 x10^3/uL (140-400); RED BLOOD COUNT 4.54 x10^6/uL (3.50-5.40); RED CELL DISTRIBUTION WIDTH 14.4 % (11.5-14.5); WHITE BLOOD COUNT 10.5 x10^3/uL (4.0-11.0)
[2018-11-25] MEDS ORDERED: IV NORMAL SALINE 1000ML BAG 1,000 ML IV ONE (23:45)
[2018-11-25] MEDS ORDERED: ASPIRIN 325 MG TABLET PO ONE (23:45)
[2018-11-25 23:48] LABS: PROTHROMBIN TIME PATIENT 12.2 SEC (11.7-14.0)
[2018-11-25 23:49] LABS: CALCIUM 9.1 mg/dL (8.5-10.1); GFR 61.4; POTASSIUM 3.6 mmol/L (3.5-5.1)
[2018-11-25 23:50] LABS: BILIRUBIN,URINE NEGATIVE (NEG); CLARITY,URINE CLOUDY; COLOR,URINE YELLOW; NITRITE,URINE NEGATIVE (NEG); PH,URINE 6.5; PROTEIN,URINE NEGATIVE (NEG-TRACE); UROBILINOGEN,URINE 0.2 mg/dL (0.2 mg/dL)
[2018-11-25 23:51] LABS: D-DIMER 0.4 ug/mlFEU (0.00-0.50)
[2018-11-25 23:55] LABS: ALBUMIN 3.6 g/dL (3.4-5.0); ALBUMIN/GLOBULIN RATIO 0.9 (1.0-1.7); MAGNESIUM 2.1 mg/dL (1.8-2.4); TOTAL BILIRUBIN 0.4 mg/dL (0.2-1.0); TOTAL PROTEIN 7.5 g/dL (6.4-8.2)
[2018-11-25 23:56] LABS: BACTERIA,URINE FEW /HPF (0-FEW); RBC,URINE OCC /HPF (0-2); SQUAMOUS EPITHELIAL CELL,UR FEW /LPF; WBC,URINE 20-40 /HPF (0-4)
[2018-11-26] LABS: U PREG PATIENT NEGATIVE (NEG)
[2018-11-26 00:07] LABS: CREATINE KINASE 58 U/L (26-192)
[2018-11-26] MEDS ORDERED: CEPHALEXIN 250 MG CAPSULE. PO ONE (00:15)
[2018-11-26] MEDS ORDERED: ORPH100T PO (00:20)
[2018-11-26] MEDS ORDERED: CEPH-264 PO (00:20)
[2018-11-26] MEDS ORDERED: KETOROLAC 15 MG/ML VIAL. IV ONE (01:00)
[2018-11-26 01:43] VITALS: BP 110/67
--- NOTE | 2018-11-26 08:05 | EKG ---
[facility] [address] [place] [address] Test Date: 2018-11-25 Test Time: 22:34:12 Pat Name: CORINA STEIN Department: Room: Gender: F Registered Radiation Therapist: : [id number] Requested By: AGUSTIN RICO Order Number: [id number] Reading MD: Payam Priest MD Measurements Intervals [place] Rate: 94 P: 42 [place]: 156 QRS: 28 QRSD: 76 T: 26 QT: 348 QTc: 441 Interpretive Statements SINUS RHYTHM VENTRICULAR PREMATURE COMPLEX(ES) Electronically Signed On 12-07-2018 12:04:09 [employer]AY OUT [employer]IST by Payam Priest MD
--- NOTE | 2018-11-26 08:13 | RAD ---
Chest, 2 views, 11/25/2018: HISTORY: Chest pain The heart size and pulmonary vascularity are normal. No pulmonary infiltrate is seen. There is no evidence of pleural fluid. IMPRESSION: No acute cardiopulmonary abnormality is detected. Electronically signed by: Omar Sandoval MD (11/26/2018 8:10 AM) [facility]
== END 2018-11-26 02:03 | disposition home or self-care (01) ==
LOC: ER 22:24
DX: R07.89 Other chest pain (principal); N30.00 Acute cystitis without hematuria; M54.2 Cervicalgia; M54.6 Pain in thoracic spine; R05 Cough; E03.9 Hypothyroidism, unspecified; J45.909 Unspecified asthma, uncomplicated; Z90.49 Acquired absence of other specified parts of digestive tract; Z88.8 Allergy status to other drugs, medicaments and biological substances
CPT/HCPCS: 36415; 71046; 80053; 81001; 81025; 82553; 83690; 83735; 83880; 84484; 85025; 85379; 85610; 87086; 93005; 96374; 99284; J1885; J7030

== ENCOUNTER 2019-08-05 14:44 | Observation (INO) | payer BC ==
[~2019-08-05 14:44] MED LIST changes: +CEPH-264 PO; +MONT10TA49 PO; -MONT10TA9 PO; +ORPH100T PO
[2019-08-05 16:10] LABS: BILIRUBIN,URINE NEGATIVE (NEG); CLARITY,URINE CLEAR; COLOR,URINE YELLOW; NITRITE,URINE NEGATIVE (NEG); PROTEIN,URINE NEGATIVE (NEG-TRACE); UROBILINOGEN,URINE 0.2 mg/dL (0.2 mg/dL)
[2019-08-05 16:13] LABS: BACTERIA,URINE 0 /HPF (0-FEW); RBC,URINE OCC /HPF (0-2); SQUAMOUS EPITHELIAL CELL,UR MOD /LPF; WBC,URINE OCC /HPF (0-4)
[2019-08-05] MEDS ORDERED: MMR per PROTOCOL. MC PRN (16:40)
[2019-08-05] MEDS ORDERED: PHENYLEPH/MINERAL OIL/PETROLAT RECTAL OINTMENT TUBE. RC PRN (16:45)
[2019-08-05] MEDS ORDERED: ACETAMINOPHEN 325 MG TABLET. PO PRN (16:45)
[2019-08-05] MEDS ORDERED: 0.9 % SODIUM CHLORIDE 10 ML DISP.SYRIN. IV PRN (16:45)
[2019-08-05] MEDS ORDERED: HYDROCORTISONE 1% TOPICAL OINTMENT 30GM TUBE. TP PRN (16:45)
[2019-08-05] MEDS ORDERED: diphenhydrAMINE HCL 25 MG CAPSULE PO PRN (16:45)
[2019-08-05] MEDS ORDERED: ZOLPIDEM 5 MG TABLET. PO PRN (16:45)
[2019-08-05] MEDS ORDERED: IBUPROFEN 400 MG TABLET. PO PRN (16:45)
[2019-08-05] MEDS ORDERED: BENZOCAINE 20% TOPICAL AEROSOL SPRAY 57GM CAN. TP PRN (16:45)
[2019-08-05] MEDS ORDERED: MAG HYDROX/ALUMINUM HYD/SIMETH 30 ML ORAL.SUSP PO PRN (16:45)
[2019-08-05] MEDS ORDERED: SIMETHICONE 80 MG TAB.CHEW PO PRN (16:45)
[2019-08-05] MEDS ORDERED: MAGNESIUM HYDROXIDE 2,400 MG/30 ML ORAL.SUSP. PO PRN (16:45)
[2019-08-05] MEDS ORDERED: OXYTOCIN 30 UNIT/500 ML PREMIX 500 ML IV PRN (16:45)
[2019-08-05] MEDS ORDERED: FERROUS SULFATE 325 MG TABLET. PO SCH (17:00)
[2019-08-05] MEDS ORDERED: IBUPROFEN 400 MG TABLET. PO SCH (17:00)
[2019-08-05] MEDS ORDERED: PRED50TA PO (17:43)
== END 2019-08-05 17:00 | disposition home or self-care (01) ==
LOC: 3 SO LND 14:44
PROVIDERS: ADMIT Specialist; ATTEND Specialist
DX: O26.893 Other specified pregnancy related conditions, third trimester (principal); M54.9 Dorsalgia, unspecified; R10.9 Unspecified abdominal pain; Z3A.28 28 weeks gestation of pregnancy
CPT/HCPCS: 81001; G0378; G0379

== ENCOUNTER 2019-08-05 17:00 | Emergency (ER) | payer BC ==
[~2019-08-05] VITALS: Ht 167.6 cm; Wt 106.1 kg
[2019-08-05 17:33] VITALS: BP 128/80
[2019-08-05] MEDS ORDERED: PRED50TA PO (17:43)
--- NOTE | 2019-08-05 17:44 | PHYS DOC ---
Past Medical History Past Medical History: Asthma, Hypothyroid, Other Additional Past Medical Histor: sleep apnea, GESTATIONAL DIABETES, HOSHIMOTOS,Fibromyalgia. Past Surgical History: Cholecystectomy, Other Additional Past Surgical Histo: orthroscopic left knee Alcohol Use: None Drug Use: None Adult General Chief Complaint Chief Complaint: Congestion HPI HPI Patient is a 39 year old female 4 para 2 currently 28 weeks who presents to the ED today with a cough for 3 weeks. Patient denies any abdominal pain or vaginal bleeding, she just came from the OB floor where she was cleared. She states she has been seen by her own PCP as well as [employer]NAG[employer]N as we ll [facility] in the last 3 weeks. She states she's had 2 chest x-rays in the last 7 days and finished Cefdinir a couple days ago, she also states she already did a dose of the Z pack. She also reports she already saw her asthma doctor who put on Flovent as well as albuterol. She states her symptoms are improving. She states the allergy doctor had mentioned she needs to take some prednisone if the cough persist in the next 7 days. She states the cough has persisted and would like the prednisone. Review of Systems Review of Systems Constitutional: Denies fever or chills [] Eyes: Denies change in visual acuity, redness, or eye pain [] HENT: Denies nasal congestion or sore throat [] Respiratory: Reports cough, denies shortness of breath [] Cardiovascular: No additional information not addressed in HPI [] GI: . Denies abdominal pain, nausea, vomiting, bloody stools or diarrhea [] : Denies dysuria or hematuria [] Musculoskeletal: Denies back pain or joint pain [] Integument: Denies rash or skin lesions [] Neurologic: Denies headache, focal weakness or sensory changes [] All other systems were reviewed and found to be within normal limits, except as documented in this note. Allergies Allergies Allergies Coded Allergies Type Severity Reaction Last Updated Verified gabapentin Allergy Unknown Rash 08/09/18 Yes Physical Exam Physical Exam Constitutional: Well developed, well nourished, no acute distress, non-toxic appearance. [] HENT: Normocephalic, atraumatic, bilateral external ears normal, oropharynx moist, no oral exudates, nose normal. [] Eyes: PERRLA, EOMI, conjunctiva normal, no discharge. [] Neck: Normal range of motion, no tenderness, supple, no stridor. [] Cardiovascular:Heart rate regular rhythm, no murmur [] Lungs & Thorax: Bilateral breath sounds clear to auscultation [] Abdomen: Gravid abdomen. Bowel sounds normal, soft, no tenderness, no masses, no pulsatile masses. [] Skin: Warm, dry, no erythema, no rash. [] Back: No tenderness, no CVA tenderness. [] Extremities: No tenderness, no cyanosis, no clubbing, ROM intact, no edema. [] Neurologic: Alert and oriented X 3, normal motor function, normal sensory function, no focal deficits noted. [] Psychologic: Affect normal, judgement normal, mood normal. [] EKG EKG [] Radiology/Procedures Radiology/Procedures [] Course & Med Decision Making Course & Med Decision Making Pertinent Labs and Imaging studies reviewed. (See chart for details) This is a 39-year-old female patient presenting to the ED today with complaints of cough for 3 weeks. See history of present illness. This patient has had 2 chest x-rays in the last 7 days which were negative. She's already done around of azithromycin as well as Cefdinir which she completed a few days ago. She has been seen by multiple providers in the last 3 weeks. She presents from the OB floor where she had to be evaluated before coming to the ED to be seen for her cough. She has seen her asthma doctor recently who requested her to be on prednisone. She is requesting a prescription. Rx given for 5 days. Her lungs are clear. Follow-up with her own doctors in the course of next week. Dragon Disclaimer Dragon Disclaimer This electronic medical record was generated, in whole or in part, using a voice recognition dictation system. Departure Departure Impression: Primary Impression: Cough Additional Impression: Disposition: 01 HOME, SELF-CARE Condition: STABLE Referrals: THELMA FORD MD (PCP) follow with your doctors as soon as you can Patient Instructions: Cough, Adult, [id number] Additional Instructions: You are currently and was evaluated for an ongoing cough. Continue taking your breathing treatments at home as prescribed. We put you on a five-day course of prednisone, take it as prescribed until completed. Come back to the ED at any point symptoms worsen. Scripts Prednisone (PREDNISONE) 50 Mg Tablet 1 TAB PO DAILY, #5 TAB Prov: MUTKONSTANTINREVA HILL 08/05/19 Problem Qualifiers Additional Impression: Weeks of gestation: 28 weeks Qualified Codes: Z3A.28 - 28 weeks gestation of EVIEREVA PRYOR SERGIO Aug 05, 2019 17:44
== END 2019-08-05 17:48 | disposition home or self-care (01) ==
LOC: ER 17:00
DX: O99.513 Diseases of the respiratory system complicating pregnancy, third trimester (principal); O24.419 Gestational diabetes mellitus in pregnancy, unspecified control; O99.283 Endocrine, nutritional and metabolic diseases complicating pregnancy, third trimester; Z90.49 Acquired absence of other specified parts of digestive tract; Z88.8 Allergy status to other drugs, medicaments and biological substances; Z3A.28 28 weeks gestation of pregnancy
CPT/HCPCS: 99283

== ENCOUNTER 2019-08-28 18:45 | Observation (INO) | payer BC ==
[~2019-08-28 18:45] MED LIST changes: +PRED50TA PO
[2019-08-28] MEDS ORDERED: IV RINGERS,LACTATED 1000ML 1,000 ML IV PRN (19:15)
== END 2019-08-28 19:44 | disposition home or self-care (01) ==
LOC: 3 SO LND 18:45
PROVIDERS: ADMIT Specialist; ATTEND Specialist
DX: O26.893 Other specified pregnancy related conditions, third trimester (principal); O99.52 Diseases of the respiratory system complicating childbirth; O99.89 Other specified diseases and conditions complicating pregnancy, childbirth and the puerperium; R05 Cough; R07.9 Chest pain, unspecified; Z3A.36 36 weeks gestation of pregnancy
CPT/HCPCS: G0378; G0379

== ENCOUNTER 2019-08-28 19:48 | Emergency (ER) | payer BC ==
[~2019-08-28] VITALS: Ht 160 cm; Wt 114.3 kg
[2019-08-28 20:12] VITALS: BP 131/77
--- NOTE | 2019-08-28 21:10 | PHYS DOC ---
Past Medical History Past Medical History: Asthma, Bronchitis, Hypothyroid, Other Additional Past Medical Histor: sleep apnea, GESTATIONAL DIABETES, HOSHIMOTOS,Fibromyalgia. (HAWA ARECHIGA APRN) Past Surgical History: Cholecystectomy, Other Additional Past Surgical Histo: orthroscopic left knee (HAWA ARECHIGA APRN) Additional Information: < 0.5 PPD Alcohol Use: None Drug Use: None (HAWA ARECHIGA APRN) Attending Signature I have participated in the care of this patient and I have reviewed and agree with all pertinent clinical information above including history, exam, and recommendations. (SAMIRA FLOYD MD) Adult General Chief Complaint Chief Complaint: COUGH HPI HPI Patient is a 39 year old female who presents to the emergency department with complaints of a continued cough and congestion. Patient states that she has had a cough and congestion for the last 6 weeks that her symptoms of increased this evening. Patient states she was seen at [facility] yesterday and had a chest x-ray. She was looking at her patient portal today and read that her chest x-ray said something about pulmonary edema. The patient is concerned that she is suffering from pulmonary edema. In addition, pt complains of a sore throat, runny nose, and nasal congestion with left ear pain. Patient states that the drainage from her nose has been clear today. However, last week on Friday she was prescribed Keflex by her primary care office because her nasal drainage was green at that time. She denies any fever, hemoptysis, nausea, vomiting, diarrhea, abdominal pain, vaginal bleeding, irregular vaginal discharge, diarrhea, rash, chest pain, or palpitations. Pt reports that she has been taking her albuterol breathing treatments as prescribed and that has helped with wheezing. All other ROS is neg unless otherwise noted in HPI. (HAWA ARECHIGA APRN) Review of Systems Review of Systems See Above (HAWA ARECHIGA APRN) Allergies Allergies Allergies Coded Allergies Type Severity Reaction Last Updated Verified gabapentin Allergy Unknown Rash 08/09/18 Yes (SAMIRA FLOYD MD) Physical Exam Physical Exam See Above Constitutional: Well developed, well nourished, no acute distress, non-toxic appearance. [] HENT: Normocephalic, atraumatic, bilateral external ears normal, posterior pharynx normal, oropharynx moist, no oral exudates, nose normal. [] Eyes: PERRLA, EOMI, conjunctiva normal, no discharge. [] Neck: Normal range of motion, no tenderness, supple, no stridor. [] Cardiovascular:Heart rate regular rhythm Lungs & Thorax: Bilateral breath sounds clear to auscultation [] Skin: Warm, dry, no erythema, no rash. [] Back: No tenderness Extremities: No cyanosis, ROM intact, no edema. [] Neurologic: Alert and oriented X 3, no focal deficits noted. [] Psychologic: Affect normal, judgement normal, mood normal. [] (HAWA ARECHIGA APRN) Current Patient Data Vital Signs Vital Signs Date Time Temp Pulse Resp B/P (MAP) Pulse Ox O2 Delivery O2 Flow Rate FiO2 08/28/19 20:12 97.9 101 20 131/77 (95) 98 Room Air 97.9 (SAMIRA FLOYD MD) EKG EKG [] (HAWA ARECHIGA APRN) Radiology/Procedures Radiology/Procedures The CXR from yesterday at [place] was reviewed on the PACs system. The radiologist impression read " Suggestion of atypical/viral infection or mild interstitial pulmonary edema"[] (HAWA ARECHIGA APRN) Course & Med Decision Making Course & Med Decision Making Pertinent Labs and Imaging studies reviewed. (See chart for details) Pt's VSS, O2 98% on room air. Lungs clear in all hahn. Advised pt to continue taking medications as prescribed. Recommended avoiding airway irritants and stopping smoking. Follow up with PCP next week. Return to the ER if symptoms worsen. Pt verbalized an understanding of home care, medications, follow-up, and return to ED instructions and was in agreement with the plan of care. [] (HAWA ARECHIGA TWISTHAND) Dragon Disclaimer Dragon Disclaimer This electronic medical record was generated, in whole or in part, using a voice recognition dictation system. (HAWA ARECHIGA TWISTHAND) Departure Departure Impression: Primary Impression: URI with cough and congestion Additional Impression: Disposition: 01 HOME, SELF-CARE Condition: STABLE Referrals: THELMA FORD MD (PCP) Patient Instructions: and Medications, Indn-[id number], Upper Respiratory Infection, Adult, [id number] Additional Instructions: Recommend use of a Cool mist humidifier in room at bedtime. Tylenol as needed for pain/fever. Increase clear fluids. Avoid airway triggers such as smoke, fragrance, dust, and pollen. Follow-up with your primary care doctor in 1-2 days, return to the ER if symptoms worsen. Problem Qualifiers Additional Impression: Weeks of gestation: 32 weeks Qualified Codes: Z3A.32 - 32 weeks gestation of HAWA ARECHIGA APRN Aug 28, 2019 21:10 SAMIRA FLOYD MD Sep 01, 2019 02:09
== END 2019-08-28 21:15 | disposition home or self-care (01) ==
LOC: ER 19:48
DX: O99.513 Diseases of the respiratory system complicating pregnancy, third trimester (principal); Z3A.32 32 weeks gestation of pregnancy; J06.9 Acute upper respiratory infection, unspecified; J45.909 Unspecified asthma, uncomplicated; E03.9 Hypothyroidism, unspecified; F17.200 Nicotine dependence, unspecified, uncomplicated; Z88.8 Allergy status to other drugs, medicaments and biological substances
CPT/HCPCS: 99281

== ENCOUNTER 2019-09-13 07:32 | Observation (INO) | payer MEDICAID ==
[2019-09-13 08:40] LABS: BILIRUBIN,URINE NEGATIVE (NEG); CLARITY,URINE CLEAR; COLOR,URINE YELLOW; NITRITE,URINE NEGATIVE (NEG); PROTEIN,URINE NEGATIVE (NEG-TRACE); UROBILINOGEN,URINE 0.2 mg/dL (0.2 mg/dL)
--- NOTE | 2019-09-13 08:49 | RAD ---
Examination: OB LIMITED, BIOPHYS PROFILE W/O NON STRESS History: Advanced maternal age. Charlene's disease. Comparison/Correlation: None Findings: Limited OB ultrasound exam was performed. Biophysical profile exam was performed. Single intrauterine gestation in cephalic lie is present. Heart rate of 133 bpm. Cardiac activity is visualized. movement noted. Amniotic fluid index is 10.3 and in normal limits. Anterior location of the placenta which is grade 1 is present. Biparietal diameter is 8.63 cm corresponding to 34 weeks 6 days. Head circumference is 30.8 cm corresponding to 34 weeks 3 days. Abdominal circumference is 31.2 cm corresponding 35 weeks 1 day. Femur length is 6.8 cm corresponding to 35 weeks 0 day. Head circumference to abdominal circumference ratio is 0.99. Estimated weight is 2565 g. This is at the 58th percentile. Head circumference to abdominal circumference ratio is 0.99 within normal limits. Femur length to biparietal diameter ratio of 70.9 is within normal range. Femoral length to head circumference ratio is 22.1 and within normal limits. Femur length to abdominal circumference ratio 21.8 and in normal limits. Cephalic index is 89.4 which is above normal range. Gestational age is 34 weeks 6 days. Sonographic EDC is 10/19/2019. Biophysical profile score is 8/8. breathing movements, motion, tone, and amniotic fluid volume have each a score of 2. Impression: Single living intrauterine gestation with gestational age of 34 weeks 6 days. This is 6 days greater than gestational age by last menstrual period. Biophysical profile score of 8/8. Electronically signed by: Sree Pham MD (09/13/2019 8:46 AM) [facility]
[2019-09-13 09:01] LABS: BACTERIA,URINE FEW /HPF (0-FEW); RBC,URINE 0 /HPF (0-2); SQUAMOUS EPITHELIAL CELL,UR MANY /LPF; WBC,URINE 0 /HPF (0-4)
== END 2019-09-13 09:50 | disposition home or self-care (01) ==
LOC: 3 SO LND 07:32
PROVIDERS: ADMIT Obstetrics & Gynecology; ATTEND Obstetrics & Gynecology
DX: O26.893 Other specified pregnancy related conditions, third trimester (principal); M54.9 Dorsalgia, unspecified; Z3A.34 34 weeks gestation of pregnancy
CPT/HCPCS: 76815; 76819; 81001; G0378; G0379; 59025

== ENCOUNTER 2019-09-15 23:53 | Emergency (ER) | payer MEDICAID ==
[~2019-09-15] VITALS: Ht 157.5 cm; Wt 114.3 kg
[2019-09-16] MEDS ORDERED: NITROGLYCERIN SUBLINGUAL 0.4 MG BOTTLE OF 25. SL PRN (00:15)
[2019-09-16] MEDS ORDERED: ASPIRIN CHEWABLE 81 MG TABLET. PO ONE (00:30)
[2019-09-16 00:35] LABS: BASO # 0.1 x10^3/uL (0.0-0.2); BASO % 0 % (0-3); EOS # 0.1 x10^3/uL (0.0-0.7); EOS % 1 % (0-3); HEMATOCRIT 32.6 % (36.0-47.0); LYMPH # 2.8 x10^3/uL (1.0-4.8); LYMPH % 20 % (24-48); MEAN CORPUSCULAR HEMOGLOBIN 29 pg (25-35); MEAN CORPUSCULAR HGB CONC 34 g/dL (31-37); MEAN CORPUSCULAR VOLUME 87 fL (79-100); MONO # 1.5 x10^3/uL (0.0-1.1); MONO % 11 % (0-9); NEUT # 9.3 x10^3/uL (1.8-7.7); NEUT % 67 % (31-73); PLATELET COUNT 237 x10^3/uL (140-400); RED BLOOD COUNT 3.76 x10^6/uL (3.50-5.40); WHITE BLOOD COUNT 13.7 x10^3/uL (4.0-11.0)
[2019-09-16 00:50] LABS: CALCIUM 8.9 mg/dL (8.5-10.1); CREATININE 0.7 mg/dL (0.6-1.0); GFR 92.2; POTASSIUM 3.6 mmol/L (3.5-5.1)
[2019-09-16 00:56] LABS: ALBUMIN 2.9 g/dL (3.4-5.0); ALBUMIN/GLOBULIN RATIO 0.7 (1.0-1.7); MAGNESIUM 2.1 mg/dL (1.8-2.4); TOTAL BILIRUBIN 0.3 mg/dL (0.2-1.0)
--- NOTE | 2019-09-16 00:58 | PHYS DOC ---
Past Medical History Past Medical History: Asthma, Bronchitis, Hypothyroid, Other Additional Past Medical Histor: sleep apnea, GESTATIONAL DIABETES, HOSHIMOTOS,Fibromyalgia. Past Surgical History: Cholecystectomy, Other Additional Past Surgical Histo: orthroscopic left knee Alcohol Use: None Drug Use: None Adult General Chief Complaint Chief Complaint: CHEST PAIN HPI HPI 39-year-old female presents to the emergency Department complaints of left-sided chest pain, shortness of breath both at rest and with exertion. She is to pain does not move. Patient's underlying history of asthma, Charlene's. She's also 35 weeks . Patient's blood pressure is currently 146/70. Heart rate is currently 103. Patient states she's been seen at [facility] for concern for asthma exacerbation she had chest x-ray performed which showed pulmonary edema. Patient states she was discharged. She is resolved and follow with her duco polisher secondary to her asthma was started on 30 mg of prednisone daily. Nothing makes her pain better. She states she's feeling the baby move appropriately. heart tones in the 140s to 150s. Review of Systems Review of Systems Constitutional: Denies fever or chills [] Respiratory: +shortness of breath [] Cardiovascular: No additional information not addressed in HPI [] GI: Denies abdominal pain, nausea, vomiting, bloody stools or diarrhea [] : Denies dysuria or hematuria [] Neurologic: Denies headache, focal weakness or sensory changes [] All other systems were reviewed and found to be within normal limits, except as documented in this note. Current Medications Current Medications Current Medications Medications (Trade) Dose Ordered Sig/Xenia Start Time Stop Time Status Last Admin Dose Admin Acetaminophen (Tylenol) 1,000 mg 1X ONCE 09/16/19 02:30 09/16/19 02:31 DC 09/16/19 02:28 1,000 MG Aspirin (Children'S Aspirin) 324 mg 1X ONCE 09/16/19 00:30 09/16/19 00:31 DC Info (CONTRAST GIVEN -- Rx MONITORING) 1 each PRN DAILY PRN 09/16/19 01:45 09/18/19 01:44 Iohexol (Omnipaque 350 Mg/ml) 90 ml 1X ONCE 09/16/19 01:45 09/16/19 01:46 DC Nitroglycerin (Nitrostat) 0.4 mg PRN Q5MIN PRN 09/16/19 00:15 09/17/19 00:14 Allergies Allergies Allergies Coded Allergies Type Severity Reaction Last Updated Verified gabapentin Allergy Unknown Rash 08/09/18 Yes Physical Exam Physical Exam Constitutional: Well developed, well nourished, no acute distress, non-toxic appearance. [] HENT: Normocephalic, atraumatic, bilateral external ears normal, oropharynx moist, no oral exudates, nose normal. [] Eyes: PERRLA, EOMI, conjunctiva normal, no discharge. [] Neck: Normal range of motion, no tenderness, supple, no stridor. [] Cardiovascular:Heart rate regular rhythm, no murmur [] Lungs & Thorax: Bilateral breath sounds clear to auscultation [] Abdomen: Bowel sounds normal, soft, no tenderness, no masses, no pulsatile masses. Gravid uterus, heart tones 140s[] Skin: Warm, dry, no erythema, no rash. [] Back: No tenderness, no CVA tenderness. [] Extremities: No tenderness, no edema. [] Neurologic: Alert and oriented X 3, no focal deficits noted. [] Psychologic: Affect normal, judgement normal, mood normal. [] Current Patient Data Lab Values Laboratory Tests Test 09/16/19 00:26 White Blood Count 13.7 x10^3/uL (4.0-11.0) H Red Blood Count 3.76 x10^6/uL (3.50-5.40) Hemoglobin 11.0 g/dL (12.0-15.5) L Hematocrit 32.6 % (36.0-47.0) L Mean Corpuscular Volume 87 fL (79-100) Mean Corpuscular Hemoglobin 29 pg (25-35) Mean Corpuscular Hemoglobin Concent 34 g/dL (31-37) Red Cell Distribution Width 15.0 % (11.5-14.5) H Platelet Count 237 x10^3/uL (140-400) Neutrophils (%) (Auto) 67 % (31-73) Lymphocytes (%) (Auto) 20 % (24-48) L Monocytes (%) (Auto) 11 % (0-9) H Eosinophils (%) (Auto) 1 % (0-3) Basophils (%) (Auto) 0 % (0-3) Neutrophils # (Auto) 9.3 x10^3/uL (1.8-7.7) H Lymphocytes # (Auto) 2.8 x10^3/uL (1.0-4.8) Monocytes # (Auto) 1.5 x10^3/uL (0.0-1.1) H Eosinophils # (Auto) 0.1 x10^3/uL (0.0-0.7) Basophils # (Auto) 0.1 x10^3/uL (0.0-0.2) D-Dimer (Poppy) 1.13 ug/mlFEU (0.00-0.50) H Sodium Level 136 mmol/L (136-145) Potassium Level 3.6 mmol/L (3.5-5.1) Chloride Level 103 mmol/L (98-107) Carbon Dioxide Level 25 mmol/L (21-32) Anion Gap 8 (6-14) Blood Urea Nitrogen 8 mg/dL (7-20) Creatinine 0.7 mg/dL (0.6-1.0) Estimated GFR (Cockcroft-Gault) 92.2 BUN/Creatinine Ratio 11 (6-20) Glucose Level 90 mg/dL (70-99) Calcium Level 8.9 mg/dL (8.5-10.1) Magnesium Level 2.1 mg/dL (1.8-2.4) Total Bilirubin 0.3 mg/dL (0.2-1.0) Aspartate Amino Transferase (AST) 20 U/L (15-37) Alanine Aminotransferase (ALT) 29 U/L (14-59) Alkaline Phosphatase 99 U/L (46-116) Troponin I Quantitative < 0.017 ng/mL (0.000-0.055) GW-Unv-E-Type Natriuretic Peptide 17 pg/mL (0-124) Total Protein 7.0 g/dL (6.4-8.2) Albumin 2.9 g/dL (3.4-5.0) L Albumin/Globulin Ratio 0.7 (1.0-1.7) L Laboratory Tests 09/16/19 00:26 Laboratory Tests 09/16/19 00:26 EKG EKG EKG reviewed, sinus tachycardia, normal axis no evidence of ST elevation ND, interpretation time 0001[] Radiology/Procedures Radiology/Procedures [facility] [address] [place] [address] IMAGING REPORT Signed PATIENT: CORINA STEIN AACCOUNT: [id number] : 1980 LOCATION: ER AGE: 39 SEX: F EXAM STATUS: REG ER ORD. PHYSICIAN: SAMIRA FLOYD MD REASON: elevated ddimer, chest pain SOB PROCEDURE: VENOUS LOWER EXT BILATERAL Examination: Lower Extremity Venous Doppler Ultrasound History: Elevated d-dimer, chest pain, shortness of breath Comparison: None Procedure: Falcon scale, color flow 2D and spectal waveform analysis images are obtained with and without compression in the area of the common femoral vein, superficial femoral vein - femoral vein junction, main femoral vein (superficial femoral vein) and popliteal vein. Veins of the proximal calf are also imaged. Findings: There is normal duplex flow, color flow and compressibility of all visualized vein segments. No evidence of deep venous thrombus is present. Impression: No evidence of DVT in the bilateral lower extremity venous system. Electronically signed by: Benny Berg MD (09/16/2019 2:14 AM) [facility] DICTATED and SIGNED BY: BENNY BERG MD DATE: 09/16/19213 [] Course & Med Decision Making Course & Med Decision Making Pertinent Labs and Imaging studies reviewed. (See chart for details) [] 39-year-old female presents to the emergency Department complaints of left-sided chest pain, shortness of breath both at rest and with exertion. She is to pain does not move. Patient's underlying history of asthma, Charlene's. She's also 35 weeks . Patient's blood pressure is currently 146/70. Heart rate is currently 103. Patient states she's been seen at [facility] for concern for asthma exacerbation she had chest x-ray performed which showed pulmonary edema. Patient states she was discharged. She is resolved and follow with her duco polisher secondary to her asthma was started on 30 mg of prednisone daily. Nothing makes her pain better. She states she's feeling the baby move appropriately. heart tones in the 140s to 150s. Laboratory values reviewed d-dimer mildly elevated at 1.12. Doppler study of lower extremity reveal no evidence of DVT. Metabolic profile unremarkable potassium stable 3.6, BNP 17, troponin within normal limits. White blood cell count is elevated 13,000 however this is normal to have leukocytosis with . 2nd troponin negative Plan dc home with follow up with PCP/OBGYN as outpatient - keep appointment on Friday Return precautions provided Well's Criteria for PE - low risk score Negative US for DVT Dragon Disclaimer Dragon Disclaimer This electronic medical record was generated, in whole or in part, using a voice recognition dictation system. Departure Departure Impression: Primary Impression: Chest pain Additional Impression: Intrauterine Disposition: HOME, SELF-CARE Condition: IMPROVED Referrals: THELMA FORD MD (PCP) Patient Instructions: Chest Pain (Nonspecific)-Brief Additional Instructions: Recommend follow up with PCP 3 - 5 days Return to the ER with worsening symptoms, intractable pain, fever, altered mental status Tylenol/Motrin as needed for pain Follow up with OB as scheduled for Friday Problem Qualifiers Primary Impression: Chest pain Chest pain type: unspecified Qualified Codes: R07.9 - Chest pain, unspecified SAMIRA FLOYD MD Sep 16, 2019 00:58
[2019-09-16] MEDS ORDERED: CONTRAST GIVEN. MC PRN (01:45)
[2019-09-16] MEDS ORDERED: IOHEXOL 350 MG/ML 100 ML VIAL. IV ONE (01:45)
--- NOTE | 2019-09-16 02:17 | RAD ---
Examination: Lower Extremity Venous Doppler Ultrasound History: Elevated d-dimer, chest pain, shortness of breath Comparison: None Procedure: Falcon scale, color flow 2D and spectal waveform analysis images are obtained with and without compression in the area of the common femoral vein, superficial femoral vein - femoral vein junction, main femoral vein (superficial femoral vein) and popliteal vein. Veins of the proximal calf are also imaged. Findings: There is normal duplex flow, color flow and compressibility of all visualized vein segments. No evidence of deep venous thrombus is present. Impression: No evidence of DVT in the bilateral lower extremity venous system. Electronically signed by: Benny Berg MD (09/16/2019 2:14 AM) [facility]
[2019-09-16] MEDS ORDERED: ACETAMINOPHEN 500 MG TABLET PO ONE (02:30)
[2019-09-16 03:15] VITALS: BP 109/67
--- NOTE | 2019-09-16 05:58 | EKG ---
[facility] [address] [place] [address] Test Date: 2019-09-16 Test Time: 00:01:31 Pat Name: CORINA STEIN Department: Room: Gender: F Grab Setter: : 1980 Requested By: SAMIRA FLOYD Order Number: [id number] Reading MD: Measurements Intervals [place] Rate: 102 P: 89 LA: 150 QRS: 14 QRSD: 76 T: 13 QT: 344 QTc: 452 Interpretive Statements SINUS TACHYCARDIA OTHERWISE NORMAL ECG No previous ECG available for comparison
== END 2019-09-16 03:32 | disposition home or self-care (01) ==
LOC: ER 23:53
DX: O26.893 Other specified pregnancy related conditions, third trimester (principal); R07.89 Other chest pain; R06.02 Shortness of breath; O99.513 Diseases of the respiratory system complicating pregnancy, third trimester; J45.909 Unspecified asthma, uncomplicated; O99.283 Endocrine, nutritional and metabolic diseases complicating pregnancy, third trimester; E03.9 Hypothyroidism, unspecified; O24.419 Gestational diabetes mellitus in pregnancy, unspecified control; Z3A.35 35 weeks gestation of pregnancy; Z90.49 Acquired absence of other specified parts of digestive tract; Z88.8 Allergy status to other drugs, medicaments and biological substances
CPT/HCPCS: 36415; 80053; 83735; 83880; 84484; 85025; 85379; 93005; 93970; 99285-25

== ENCOUNTER 2019-09-21 11:05 | Observation (INO) | payer MEDICAID ==
[~2019-09-21] VITALS: Ht 157.5 cm; Wt 111.6 kg
[2019-09-21] MEDS ORDERED: IV RINGERS,LACTATED 1000ML 1,000 ML IV SCH (11:06)
--- NOTE | 2019-09-21 12:21 | RAD ---
EXAM: biophysical profile. HISTORY: Advanced maternal age. TECHNIQUE: Sonographic imaging of a gravid uterus was performed. COMPARISON: 09/13/2019. FINDINGS: There is a single intrauterine fetus in cephalic presentation with a normal heart rate of 133 bpm. The amniotic fluid axes normal at 14.7 cm. There is an anterior placenta without evidence of placenta previa. There is normal body motion, breathing motion and tone. The biophysical profile is 8/8. The estimated gestational age based on clinical history is 35 weeks and 1 day. The estimated due date is 10/25/2019. IMPRESSION: 1. Single intrauterine fetus in cephalic presentation with normal heart rate and gestational age based on LMP of 35 weeks and 1 day. 2. Normal biophysical profile 8/8. Electronically signed by: Mary Mattson MD (09/21/2019 12:18 PM) [facility]
== END 2019-09-21 12:30 | disposition home or self-care (01) ==
LOC: 3 SO LND 11:05
PROVIDERS: ADMIT Obstetrics & Gynecology; ATTEND Obstetrics & Gynecology
DX: O99.283 Endocrine, nutritional and metabolic diseases complicating pregnancy, third trimester (principal); O99.513 Diseases of the respiratory system complicating pregnancy, third trimester; J45.909 Unspecified asthma, uncomplicated; O26.893 Other specified pregnancy related conditions, third trimester; G47.30 Sleep apnea, unspecified; E06.3 Autoimmune thyroiditis; Z3A.35 35 weeks gestation of pregnancy
CPT/HCPCS: 76819; G0378; G0379; 59025

== ENCOUNTER 2019-09-22 23:18 | Observation (INO) | payer MEDICAID ==
[2019-09-22] MEDS ORDERED: ACETAMINOPHEN 325 MG TABLET. PO PRN (23:30)
[2019-09-22] MEDS ORDERED: MAG HYDROX/ALUMINUM HYD/SIMETH 30 ML ORAL.SUSP PO PRN (23:30)
[2019-09-22] MEDS ORDERED: IV RINGERS,LACTATED 1000ML 1,000 ML IV PRN (23:30)
[2019-09-22 23:32] LABS: BILIRUBIN,URINE NEGATIVE (NEG); CLARITY,URINE CLOUDY; COLOR,URINE YELLOW; NITRITE,URINE NEGATIVE (NEG); PROTEIN,URINE NEGATIVE (NEG-TRACE); UROBILINOGEN,URINE 0.2 mg/dL (0.2 mg/dL)
[2019-09-22 23:36] LABS: SQUAMOUS EPITHELIAL CELL,UR MANY /LPF
[2019-09-22 23:37] LABS: BACTERIA,URINE FEW /HPF (0-FEW); RBC,URINE OCC /HPF (0-2)
[2019-09-22 23:38] LABS: BARBITURATES NEG (NEG); BENZODIAZEPINES NEG (NEG); CANNABINOIDS NEG (NEG); COCAINE NEG (NEG); METHADONE NEG (NEG); OPIATES NEG (NEG); PHENCYCLIDINE NEG (NEG)
[2019-09-22 23:41] LABS: AMPHETAMINE/METHAMPHETAMINE NEG (NEG)
== END 2019-09-23 00:02 | disposition home or self-care (01) ==
LOC: 3 SO LND 23:18
PROVIDERS: ADMIT Obstetrics & Gynecology; ATTEND Obstetrics & Gynecology
DX: O26.893 Other specified pregnancy related conditions, third trimester (principal); M54.5 Low back pain; R10.9 Unspecified abdominal pain; R51 Headache; Z3A.35 35 weeks gestation of pregnancy
CPT/HCPCS: 80307; 81001; 87086; G0378; G0379

== ENCOUNTER 2019-10-04 23:08 | Observation (INO) | payer MEDICAID ==
[2019-10-05 01:23] LABS: BILIRUBIN,URINE NEGATIVE (NEG); CLARITY,URINE CLEAR; COLOR,URINE YELLOW; NITRITE,URINE NEGATIVE (NEG); PH,URINE 6.5; PROTEIN,URINE NEGATIVE (NEG-TRACE); UROBILINOGEN,URINE 0.2 mg/dL (0.2 mg/dL)
[2019-10-05 01:32] LABS: BACTERIA,URINE FEW /HPF (0-FEW); SQUAMOUS EPITHELIAL CELL,UR MOD /LPF; YEAST,URINE PRESENT /HPF
== END 2019-10-05 01:05 | disposition home or self-care (01) ==
LOC: 3 SO LND 23:08
PROVIDERS: ADMIT Obstetrics & Gynecology; ATTEND Obstetrics & Gynecology
DX: O26.893 Other specified pregnancy related conditions, third trimester (principal); M54.9 Dorsalgia, unspecified; Z3A.37 37 weeks gestation of pregnancy
CPT/HCPCS: 81001; 87086; G0378; G0379

== ENCOUNTER 2019-10-05 10:08 | Observation (INO) | payer MEDICAID ==
--- NOTE | 2019-10-05 12:30 | RAD ---
Examination: BIOPHYS PROFILE W/O NON STRESS History: Gestational diabetes. Comparison/Correlation: 09/21/2019 biophysical profile score Findings: Biophysical profile score was obtained. breathing movements, motion, tone, and amniotic fluid volume are each 2/2. Anteriorly located placenta. Cephalic lie noted. An occluded index is 12.2 cm. Impression: Biophysical profile score of 8/8. Electronically signed by: Sree Pham MD (10/05/2019 12:27 PM) [facility]
== END 2019-10-05 11:27 | disposition home or self-care (01) ==
LOC: 3 SO LND 10:08
PROVIDERS: ADMIT Obstetrics & Gynecology; ATTEND Obstetrics & Gynecology
DX: O24.419 Gestational diabetes mellitus in pregnancy, unspecified control (principal); Z3A.37 37 weeks gestation of pregnancy
CPT/HCPCS: 76819; G0378; G0379; 59025

== ENCOUNTER 2019-10-11 05:54 | Inpatient (IN) | payer MEDICAID ==
[~2019-10-11] VITALS: Ht 157.5 cm; Wt 116.6 kg
[2019-10-11] MEDS ORDERED: TERBUTALINE 1 MG/ML VIAL. SQ PRN (06:00)
[2019-10-11] MEDS ORDERED: BUTORPHANOL 2 MG/ML VIAL. IV PRN (06:00)
[2019-10-11] MEDS ORDERED: IBUPROFEN 400 MG TABLET. PO PRN (06:00)
[2019-10-11] MEDS ORDERED: ONDANSETRON PF 4 MG/2 ML VIAL. IV PRN (06:00)
[2019-10-11] MEDS ORDERED: PENICILLIN G K 5,000,000 UNIT in IV DEXTROSE 5% 100ML 100 ML IV ONE (06:00)
[2019-10-11] MEDS ORDERED: ACETAMINOPHEN 325 MG TABLET. PO PRN (06:00)
[2019-10-11] MEDS ORDERED: OXYTOCIN 30 UNIT/500 ML PREMIX 500 ML IV PRN ×2 (06:00)
[2019-10-11] MEDS ORDERED: 0.9 % SODIUM CHLORIDE 10 ML DISP.SYRIN. IV PRN (06:00)
[2019-10-11] MEDS ORDERED: LIDOCAINE 1% PF 30 ML VIAL. INJ PRN (06:00)
[2019-10-11] MEDS: IV RINGERS,LACTATED 1000ML 1,000 ML IV SCH ×2 (06:50→10:31)
[2019-10-11 06:51] LABS: BARBITURATES NEG (NEG); BENZODIAZEPINES NEG (NEG); CANNABINOIDS NEG (NEG); COCAINE NEG (NEG); METHADONE NEG (NEG); OPIATES NEG (NEG); PHENCYCLIDINE NEG (NEG)
[2019-10-11 06:52] VITALS: BP 139/84
[2019-10-11 06:59] LABS: AMPHETAMINE/METHAMPHETAMINE NEG (NEG)
[2019-10-11 07:05] LABS: BASO % 0 % (0-3); EOS # 0.1 x10^3/uL (0.0-0.7); EOS % 1 % (0-3); HEMOGLOBIN 11.4 g/dL (12.0-15.5); LYMPH # 2.1 x10^3/uL (1.0-4.8); LYMPH % 18 % (24-48); MEAN CORPUSCULAR HEMOGLOBIN 30 pg (25-35); MEAN CORPUSCULAR HGB CONC 34 g/dL (31-37); MEAN CORPUSCULAR VOLUME 88 fL (79-100); MONO # 0.9 x10^3/uL (0.0-1.1); MONO % 8 % (0-9); NEUT # 8.5 x10^3/uL (1.8-7.7); NEUT % 73 % (31-73); PLATELET COUNT 206 x10^3/uL (140-400); RED BLOOD COUNT 3.88 x10^6/uL (3.50-5.40); RED CELL DISTRIBUTION WIDTH 15.7 % (11.5-14.5); WHITE BLOOD COUNT 11.6 x10^3/uL (4.0-11.0)
[2019-10-11 07:15] LABS: BILIRUBIN,URINE NEGATIVE (NEG); CLARITY,URINE CLEAR; COLOR,URINE YELLOW; NITRITE,URINE NEGATIVE (NEG); PH,URINE 6.5; PROTEIN,URINE NEGATIVE (NEG-TRACE); UROBILINOGEN,URINE 0.2 mg/dL (0.2 mg/dL)
[2019-10-11 07:23] LABS: BACTERIA,URINE MANY /HPF (0-FEW); RBC,URINE 0 /HPF (0-2)
[2019-10-11 07:24] LABS: SQUAMOUS EPITHELIAL CELL,UR MANY /LPF
[2019-10-11] MEDS ORDERED: OXYTOCIN PREMIX 30 UNIT/500 ML NS BAG. IV ONE (07:30)
--- NOTE | 2019-10-11 08:58 | PDOC1 ---
OB HISTORY AND PHYSICAL DATE OF ADMISSION DATE OF ADMISSION Date of Admission: Oct 11, 2019 at 05:54 HISTORY OF PRESENT Other Complications HPI: 39y @ 38.0 by 7wk u/s presents for scheduled indxn. The pts has been complicated by AMA, Pre-gestational vs gestational DM, LGA (96%ile, 09/27), poorly controlled asthma, sleep apnea, and tob use. She began her care with Dr. Bill in [place]. She also so [facility] in consult for the above conditions. They recommended delivery at 38-39wks. VTE PROPHYLAXIS ORDERED VTE Prophylaxis Devices: Yes VTE Pharmacological Prophylax: Yes OB - History Past Family/Social History * Past Medical, Surgical, Family and Obstetric Histories reviewed from chart. OB - Admission Exam Physical Exam Vitals: Vital Signs Date Time Temp Pulse Resp B/P (MAP) Pulse Ox O2 Delivery O2 Flow Rate FiO2 10/11/19 06:52 98.9 110 18 139/84 (102) 97 Room Air 98.9 Vital Signs Date Time Temp Pulse Resp B/P (MAP) Pulse Ox O2 Delivery O2 Flow Rate FiO2 10/11/19 06:52 98.9 110 18 139/84 (102) 97 Room Air 98.9 FHT: 140's +acels/no decels/mLTV [place]: 1-3 min SVE: 50/-2 Assessment/Plan Assessment/Plan A/P 39y @ 38.0 by 7wk u/s 1.) Indxn per MFM recommendation for AMA and pregestational DM, currently on 6U of pit 2.) AMA - pt reports nml NIPT, last baby 13yrs ago 3.) Pre-gestational vs gestational DM - pt reports nml HgbA1C, on Metformin 500 qhs (even though MFM note states 1000 BID), good control per logs throughout , nml echo (07/06/19) 4.) LGA - 3497g (96%ile, 09/27) 5.) Asthma - poorly controlled, sees billing control clerk, on Albuterol prn, recently completed a course of Prednisone 6.) Sleep Apnea - on 2L at night 7.) 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 AGUSTIN GARNICA MD Oct 11, 2019 08:58
[2019-10-11] MEDS: PENICILLIN G K 2,500,000 UNIT in IV DEXTROSE 5% 50 ML IV SCH ×4 (10:31→22:01)
[2019-10-11] MEDS ORDERED: BUPIVACAINE MPF 0.25% 30 ML VIAL. EPID PRN (11:30)
[2019-10-11] MEDS ORDERED: IV RINGERS,LACTATED 1000ML 1,000 ML IV SCH ×2 (11:30→23:08)
[2019-10-11] MEDS ORDERED: fentaNYL PF VIAL 100 MCG/2 ML VIAL EPID PRN (11:30)
[2019-10-11] MEDS ORDERED: NALOXONE 0.4 MG/ML VIAL. IV PRN (11:30)
[2019-10-11] MEDS ORDERED: ROPIVacaine 0.2% PF 10 ML VIAL. EPID PRN (11:30)
[2019-10-11] MEDS ORDERED: diphenhydrAMINE 50 MG/ML VIAL IV PRN (11:30)
[2019-10-11] MEDS ORDERED: PHENYLEPHRINE in 0.9% NACL PF 1 MG/10 ML SYRINGE. IV PRN (11:30)
[2019-10-11] MEDS ORDERED: ePHEDrine PF IN SALINE 50 MG/10 ML SYRINGE. IV PRN (11:30)
[2019-10-11] MEDS ORDERED: ONDANSETRON PF 4 MG/2 ML VIAL. IVP PRN (11:30)
[2019-10-11] MEDS ORDERED: NALBUPHINE 10 MG/ML AMPUL. IV PRN (11:30)
[2019-10-11] MEDS ORDERED: IV RINGERS,LACTATED 500ML 500 ML IV PRN (11:30)
[2019-10-11] MEDS ORDERED: ROPIVacaine 0.2% PF 10 ML VIAL. ONE (11:37)
[2019-10-11] MEDS ORDERED: L&D EPIDURAL SYRINGE 50 ML ONE (11:37)
[2019-10-11] MEDS: L&D EPIDURAL SYRINGE 50 ML EPID PRN ×4 (11:48→22:02)
--- NOTE | 2019-10-11 18:15 | PDOC ---
OB Progress Note Notes CTSP for placement of internals. Concerns that the pt may be having late decels. Lab Laboratory Tests Test 10/11/19 05:56 10/11/19 06:15 10/11/19 15:55 10/11/19 16:25 White Blood Count 11.6 x10^3/uL (4.0-11.0) Red Blood Count 3.88 x10^6/uL (3.50-5.40) Hemoglobin 11.4 g/dL (12.0-15.5) Hematocrit 34.0 % (36.0-47.0) Mean Corpuscular Volume 88 fL (79-100) Mean Corpuscular Hemoglobin 30 pg (25-35) Mean Corpuscular Hemoglobin Concent 34 g/dL (31-37) Red Cell Distribution Width 15.7 % (11.5-14.5) Platelet Count 206 x10^3/uL (140-400) Neutrophils (%) (Auto) 73 % (31-73) Lymphocytes (%) (Auto) 18 % (24-48) Monocytes (%) (Auto) 8 % (0-9) Eosinophils (%) (Auto) 1 % (0-3) Basophils (%) (Auto) 0 % (0-3) Neutrophils # (Auto) 8.5 x10^3/uL (1.8-7.7) Lymphocytes # (Auto) 2.1 x10^3/uL (1.0-4.8) Monocytes # (Auto) 0.9 x10^3/uL (0.0-1.1) Eosinophils # (Auto) 0.1 x10^3/uL (0.0-0.7) Basophils # (Auto) 0.0 x10^3/uL (0.0-0.2) Glucose Level 127 mg/dL (70-99) Treponema pallidum Antibody Nonreactive (Nonreactive) Urine Collection Type Unknown Urine Color Yellow Urine Clarity Clear Urine pH 6.5 Urine Specific [place] 1.010 Urine Protein Negative mg/dL (NEG-TRACE) Urine Glucose (UA) Negative mg/dL (NEG) Urine Ketones (Stick) Negative mg/dL (NEG) Urine Blood Negative (NEG) Urine Nitrite Negative (NEG) Urine Bilirubin Negative (NEG) Urine Urobilinogen Dipstick 0.2 mg/dL (0.2 mg/dL) Urine Leukocyte Esterase Moderate (NEG) Urine RBC 0 /HPF (0-2) Urine WBC 1-4 /HPF (0-4) Urine Squamous Epithelial Cells Many /LPF Urine Bacteria Many /HPF (0-FEW) Urine Mucus Marked /LPF Urine Opiates Screen Neg (NEG) Urine Methadone Screen Neg (NEG) Urine Barbiturates Neg (NEG) Urine Phencyclidine Screen Neg (NEG) Urine Amphetamine/Methamphetamine Neg (NEG) Urine Benzodiazepines Screen Neg (NEG) Urine Cocaine Screen Neg (NEG) Urine Cannabinoids Screen Neg (NEG) Urine Ethyl Alcohol Neg (NEG) Glucose (Fingerstick) 66 mg/dL (70-99) 74 mg/dL (70-99) Test 10/11/19 17:35 Glucose (Fingerstick) 78 mg/dL (70-99) Laboratory Tests Test 10/11/19 05:56 10/11/19 06:15 10/11/19 15:55 10/11/19 16:25 White Blood Count 11.6 x10^3/uL (4.0-11.0) Red Blood Count 3.88 x10^6/uL (3.50-5.40) Hemoglobin 11.4 g/dL (12.0-15.5) Hematocrit 34.0 % (36.0-47.0) Mean Corpuscular Volume 88 fL (79-100) Mean Corpuscular Hemoglobin 30 pg (25-35) Mean Corpuscular Hemoglobin Concent 34 g/dL (31-37) Red Cell Distribution Width 15.7 % (11.5-14.5) Platelet Count 206 x10^3/uL (140-400) Neutrophils (%) (Auto) 73 % (31-73) Lymphocytes (%) (Auto) 18 % (24-48) Monocytes (%) (Auto) 8 % (0-9) Eosinophils (%) (Auto) 1 % (0-3) Basophils (%) (Auto) 0 % (0-3) Neutrophils # (Auto) 8.5 x10^3/uL (1.8-7.7) Lymphocytes # (Auto) 2.1 x10^3/uL (1.0-4.8) Monocytes # (Auto) 0.9 x10^3/uL (0.0-1.1) Eosinophils # (Auto) 0.1 x10^3/uL (0.0-0.7) Basophils # (Auto) 0.0 x10^3/uL (0.0-0.2) Glucose Level 127 mg/dL (70-99) Treponema pallidum Antibody Nonreactive (Nonreactive) Urine Collection Type Unknown Urine Color Yellow Urine Clarity Clear Urine pH 6.5 Urine Specific [place] 1.010 Urine Protein Negative mg/dL (NEG-TRACE) Urine Glucose (UA) Negative mg/dL (NEG) Urine Ketones (Stick) Negative mg/dL (NEG) Urine Blood Negative (NEG) Urine Nitrite Negative (NEG) Urine Bilirubin Negative (NEG) Urine Urobilinogen Dipstick 0.2 mg/dL (0.2 mg/dL) Urine Leukocyte Esterase Moderate (NEG) Urine RBC 0 /HPF (0-2) Urine WBC 1-4 /HPF (0-4) Urine Squamous Epithelial Cells Many /LPF Urine Bacteria Many /HPF (0-FEW) Urine Mucus Marked /LPF Urine Opiates Screen Neg (NEG) Urine Methadone Screen Neg (NEG) Urine Barbiturates Neg (NEG) Urine Phencyclidine Screen Neg (NEG) Urine Amphetamine/Methamphetamine Neg (NEG) Urine Benzodiazepines Screen Neg (NEG) Urine Cocaine Screen Neg (NEG) Urine Cannabinoids Screen Neg (NEG) Urine Ethyl Alcohol Neg (NEG) Glucose (Fingerstick) 66 mg/dL (70-99) 74 mg/dL (70-99) Test 10/11/19 17:35 Glucose (Fingerstick) 78 mg/dL (70-99) Medications Current Medications Sodium Chloride (Normal Saline Flush) 3 ml QSHIFT PRN IV AFTER MEDS AND BLOOD DRAWS; Start 10/11/19 at 06:00 Ringer's Solution 1,000 ml @ 125 mls/hr Q8H IV Last administered on 10/11/19at 10:31; Start 10/11/19 at 05:56 Acetaminophen (Tylenol) 650 mg PRN Q6HRS PRN PO MILD PAIN / TEMP; Start 10/11/19 at 06:00 Ondansetron HCl (Zofran) 4 mg PRN Q4HRS PRN IV NAUSEA/VOMITING 1ST CHOICE; Start 10/11/19 at 06:00 Terbutaline Sulfate (Brethine) 0.25 mg 1X PRN PRN SQ SEE COMMENTS; Start 10/11/19 at 06:00; Stop 10/12/19 at 05:59 Lidocaine HCl (Xylocaine 1% Pf 30ml Vial) 30 ml 1X PRN PRN INJ SEE COMMENTS; Start 10/11/19 at 06:00; Stop 10/13/19 at 05:59 Oxytocin/Sodium Chloride 500 ml @ 0 mls/hr CONT PRN IV SEE I/O RECORD; Start 10/11/19 at 06:00 Oxytocin/Sodium Chloride 500 ml @ 0 mls/hr CONT PRN PRN IV Post delivery bleeding; Start 10/11/19 at 06:00 Ibuprofen (Motrin) 800 mg PRN Q6HRS PRN PO MODERATE PAIN 4-6; Start 10/11/19 at 06:00 Butorphanol Tartrate (Stadol) 2 mg PRN Q2HRS PRN IV LABOR PAIN; Start 10/11/19 at 06:00 Penicillin G Potassium 9382410 unit/Dextrose 100 ml @ 100 mls/hr 1X ONCE IV Last administered on 10/11/19at 06:51; Start 10/11/19 at 06:00; Stop 10/11/19 at 06:59; Status DC Penicillin G Potassium [id number] unit/Dextrose 50 ml @ 100 mls/hr Q4H IV Last administered on 10/11/19at 18:07; Start 10/11/19 at 10:00 Oxytocin/Sodium Chloride (Oxytocin Premix Infusion) 30 unit STK-MED ONCE IV ; Start 10/11/19 at 07:30; Stop 10/11/19 at 08:50; Status DC Ringer's Solution 1,000 ml @ 1,000 mls/hr Q1H IV Last administered on 10/11/19at 11:49; Start 10/11/19 at 11:30; Stop 10/11/19 at 12:29; Status DC Ringer's Solution 500 ml @ 500 mls/hr 1X PRN PRN IV HYPOTENSION; Start 10/11/19 at 11:30; Stop 10/12/19 at 11:29 Ephedrine Sulfate (ePHEDrine PF IN SALINE SYRINGE) 10 mg PRN Q2MIN PRN IV IF SBP<90; Start 10/11/19 at 11:30 Phenylephrine HCl (PHENYLEPHRINE in 0.9% NACL PF) 0.05 mg PRN Q2MIN PRN IV SBP less than 90; Start 10/11/19 at 11:30 Naloxone HCl (Narcan) 0.04 mg PRN Q1MIN PRN IV SEE COMMENTS; Start 10/11/19 at 11:30 Fentanyl Citrate (Fentanyl 2ml Vial) 100 mcg PRN 1X PRN EPID FOR ANESTHESIA Last administered on 10/11/19at 11:48; Start 10/11/19 at 11:30; Stop 10/12/19 at 11:29 Bupivacaine HCl (Sensorcaine Mpf 0.25%) 10 ml PRN 1X PRN EPID FOR ANESTHESIA; Start 10/11/19 at 11:30; Stop 10/12/19 at 11:29 Fentanyl Citrate 50 ml @ 14 mls/hr CONT PRN EPID PAIN Last administered on 10/11/19at 15:46; Start 10/11/19 at 11:30 Ondansetron HCl (Zofran) 4 mg PRN Q6HRS PRN IVP NAUSEA/VOMITING; Start 10/11/19 at 11:30 Diphenhydramine HCl (Benadryl) 12.5 mg PRN Q2HR PRN IV ITCHING; Start 10/11/19 at 11:30 Nalbuphine HCl (Nubain) 2.5 mg PRN Q2HR PRN IV ITCHING; Start 10/11/19 at 11:30 Ropivacaine (Naropin 0.2%) 20 ml 1X PRN PRN EPID PER ANESTHESIA Last admini stered on 10/11/19at 11:49; Start 10/11/19 at 11:30; Stop 10/11/19 at 11:49; Status DC Fentanyl Citrate 50 ml @ As Directed STK-MED ONCE .ROUTE ; Start 10/11/19 at 11:37; Stop 10/11/19 at 11:37; Status DC Ropivacaine (Naropin 0.2%) 10 ml STK-MED ONCE .ROUTE ; Start 10/11/19 at 11:37; Stop 10/11/19 at 11:38; Status DC Active Scripts Active Prednisone 50 Mg Tablet 1 Tab PO DAILY Keflex (Cephalexin) 500 Mg Capsule 500 Mg PO TID 7 Days Orphenadrine Citrate 100 Mg Tablet.er 100 Mg PO BID PRN Prednisone 20 Mg Tablet 2 Tab PO DAILY Start this prescription on 09/24/18 Alprazolam 0.5 Mg Tablet 0.5 Mg PO PRN Q8HRS PRN 7 Days Reported Levothyroxine Sodium 200 Mcg Tablet 1 Tab PO DAILY Proair Hfa Inhaler (Albuterol Sulfate) 8.5 Gm Hfa.aer.ad 1 Puff INH PRN Q6HRS PRN Flovent 110MCG Hfa (Fluticasone Propionate) 12 Gm Aer.w.adap 2 Puff IH BID Miralax (Polyethylene Glycol 3350) 17 Gm Powd.pack 1 Packet PO PRN PRN Magnesium (Magnesium Oxide) 400 Mg Capsule 1 Cap PO HS PRN Protonix (Pantoprazole Sodium) 20 Mg Tablet.dr 40 Mg PO DAILY Montelukast Sodium Tablet (Montelukast Sodium) 10 Mg Tablet 1 Tab PO HS Losartan Potassium 50 Mg Tablet 50 Mg PO DAILY Exam FHT: 150's +acels/early decels and variables/mLTV [place]: 1-2 min SVE: 7/80/-2 Assessment A/P 39y @ 38.0 by 7wk u/s 1.) Indxn per MFM recommendation for AMA and pregestational DM, currently on 20U of pit 2.) AMA - pt reports nml NIPT, last baby 13yrs ago 3.) Pre-gestational vs gestational DM - pt reports nml HgbA1C, on Metformin 500 qhs (even though MFM note states 1000 BID), good control per logs throughout , nml echo (07/06/19), FSBS q1hr have remained nml 4.) LGA - 3497g (96%ile, 09/27) 5.) Asthma - poorly controlled, sees shredding machine tender, on Albuterol prn, recently completed a course of Prednisone 6.) Sleep Apnea - on 2L at night 7.) 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
[2019-10-11] MEDS ORDERED: LIDOCAINE 2% PF 5 ML VIAL. ONE ×3 (23:06→23:08)
[2019-10-11] MEDS ORDERED: CITRIC ACID/SODIUM CITRATE 30 ML SOLUTION. PO ONE (23:15)
[2019-10-11] MEDS ORDERED: MIDAZOLAM HCL/PF 2 MG/2 ML VIAL. ONE (23:25)
[2019-10-11] MEDS ORDERED: KETAMINE HCL IN NACL, ISO-OSM 50 MG/5 ML SYRINGE ONE (23:25)
[2019-10-11] MEDS ORDERED: MORPHINE PF 10 MG/10 ML AMPUL. ONE (23:26)
[2019-10-11] MEDS ORDERED: PHENYLEPHRINE in 0.9% NACL PF 1 MG/10 ML SYRINGE. IV ONE (23:26)
[2019-10-11] MEDS ORDERED: ceFAZolin SODIUM 3 GM in IV DEXTROSE 5% 100ML 100 ML IV ONE (23:30)
[2019-10-11] MEDS ORDERED: ONDANSETRON PF 4 MG/2 ML VIAL. ONE (23:57)
[2019-10-11] MEDS ORDERED: OXYTOCIN 10 UNIT/ML VIAL. ONE (23:57)
[2019-10-12] MEDS ORDERED: PROPOFOL 20 ML IV ONE (00:02)
[2019-10-12] MEDS ORDERED: KETAMINE HCL IN NACL, ISO-OSM 50 MG/5 ML SYRINGE ONE (00:05)
[2019-10-12] MEDS ORDERED: OXYTOCIN 10 UNIT/ML VIAL. ONE ×2 (00:30→00:31)
--- NOTE | 2019-10-12 00:46 | PDOC4 ---
OPERATIVE NOTE: PreOp Dx: 1.) IUP @ 38.0 by 7wk u/s 2.) Arrest of dilation at 9cm 3.) AMA 4.) Pre-gestational vs gestational DM 5.) LGA - 3497g (96%ile, 09/27) 6.) Asthma - poorly controlled 7.) Sleep Apnea 8.) Hypothyroidism/Charlene thyroiditis 9.) Tob use 10.) GBSuria on PCN Post Op Dx: same Procedure: Primary LTCS Surgeon: Eddi Garnica Anesthesia: Epidural EBL: 700cc Fluids: 1200cc UOP: 100cc Findings: viable female infant delivered at 2348. Wt 8lb 3oz. Apgars 8/9. Nml maternal anatomy. ABG pH 7.26 BE -9. VBG pH 7.26 BE -3. Complications: None AGUSTIN GARNICA MD Oct 12, 2019 00:46
[2019-10-12] MEDS ORDERED: ZOLPIDEM 5 MG TABLET. PO PRN (01:30)
[2019-10-12] MEDS ORDERED: MMR per PROTOCOL. MC PRN (01:30)
[2019-10-12] MEDS ORDERED: ACETAMINOPHEN 325 MG TABLET. PO PRN (01:30)
[2019-10-12] MEDS ORDERED: 0.9 % SODIUM CHLORIDE 10 ML DISP.SYRIN. IV PRN (01:30)
[2019-10-12] MEDS ORDERED: OXYTOCIN 30 UNIT/500 ML PREMIX 500 ML IV PRN (01:30)
[2019-10-12] MEDS ORDERED: oxyCODONE/APAP 5/325 1 TAB TABLET PO PRN (01:30)
[2019-10-12] MEDS: KETOROLAC 30 MG/ML VIAL. IVP PRN ×2 (02:38→08:36)
[2019-10-12 04:30] VITALS: BP 110/78
[2019-10-12 05:00] VITALS: BP 99/63
[2019-10-12] MEDS ORDERED: MORPHINE SULFATE 4 MG/ML VIAL. IV ONE (05:00)
[2019-10-12] MEDS: IV RINGERS,LACTATED 1000ML 1,000 ML IV SCH (05:16)
[2019-10-12 05:19] LABS: HEMOGLOBIN 10.4 g/dL (12.0-15.5); RED BLOOD COUNT 3.54 x10^6/uL (3.50-5.40); RED CELL DISTRIBUTION WIDTH 15.5 % (11.5-14.5); WHITE BLOOD COUNT 21.6 x10^3/uL (4.0-11.0)
--- NOTE | 2019-10-12 10:24 | PDOC ---
OB Progress Note Notes Pt with good pain control. Kavya PO. Good in place. Minimal lochia Lab Laboratory Tests Test 10/11/19 05:56 10/11/19 06:15 10/11/19 15:55 10/11/19 16:25 White Blood Count 11.6 x10^3/uL (4.0-11.0) Red Blood Count 3.88 x10^6/uL (3.50-5.40) Hemoglobin 11.4 g/dL (12.0-15.5) Hematocrit 34.0 % (36.0-47.0) Mean Corpuscular Volume 88 fL (79-100) Mean Corpuscular Hemoglobin 30 pg (25-35) Mean Corpuscular Hemoglobin Concent 34 g/dL (31-37) Red Cell Distribution Width 15.7 % (11.5-14.5) Platelet Count 206 x10^3/uL (140-400) Neutrophils (%) (Auto) 73 % (31-73) Lymphocytes (%) (Auto) 18 % (24-48) Monocytes (%) (Auto) 8 % (0-9) Eosinophils (%) (Auto) 1 % (0-3) Basophils (%) (Auto) 0 % (0-3) Neutrophils # (Auto) 8.5 x10^3/uL (1.8-7.7) Lymphocytes # (Auto) 2.1 x10^3/uL (1.0-4.8) Monocytes # (Auto) 0.9 x10^3/uL (0.0-1.1) Eosinophils # (Auto) 0.1 x10^3/uL (0.0-0.7) Basophils # (Auto) 0.0 x10^3/uL (0.0-0.2) Glucose Level 127 mg/dL (70-99) Treponema pallidum Antibody Nonreactive (Nonreactive) Urine Collection Type Unknown Urine Color Yellow Urine Clarity Clear Urine pH 6.5 Urine Specific [place] 1.010 Urine Protein Negative mg/dL (NEG-TRACE) Urine Glucose (UA) Negative mg/dL (NEG) Urine Ketones (Stick) Negative mg/dL (NEG) Urine Blood Negative (NEG) Urine Nitrite Negative (NEG) Urine Bilirubin Negative (NEG) Urine Urobilinogen Dipstick 0.2 mg/dL (0.2 mg/dL) Urine Leukocyte Esterase Moderate (NEG) Urine RBC 0 /HPF (0-2) Urine WBC 1-4 /HPF (0-4) Urine Squamous Epithelial Cells Many /LPF Urine Bacteria Many /HPF (0-FEW) Urine Mucus Marked /LPF Urine Opiates Screen Neg (NEG) Urine Methadone Screen Neg (NEG) Urine Barbiturates Neg (NEG) Urine Phencyclidine Screen Neg (NEG) Urine Amphetamine/Methamphetamine Neg (NEG) Urine Benzodiazepines Screen Neg (NEG) Urine Cocaine Screen Neg (NEG) Urine Cannabinoids Screen Neg (NEG) Urine Ethyl Alcohol Neg (NEG) Glucose (Fingerstick) 66 mg/dL (70-99) 74 mg/dL (70-99) Test 10/11/19 17:35 10/11/19 19:11 10/12/19 04:45 Glucose (Fingerstick) 78 mg/dL (70-99) 70 mg/dL (70-99) White Blood Count 21.6 x10^3/uL (4.0-11.0) Red Blood Count 3.54 x10^6/uL (3.50-5.40) Hemoglobin 10.4 g/dL (12.0-15.5) Hematocrit 31.0 % (36.0-47.0) Mean Corpuscular Volume 88 fL (79-100) Mean Corpuscular Hemoglobin 29 pg (25-35) Mean Corpuscular Hemoglobin Concent 34 g/dL (31-37) Red Cell Distribution Width 15.5 % (11.5-14.5) Platelet Count 192 x10^3/uL (140-400) Glucose Level 97 mg/dL (70-99) Laboratory Tests Test 10/11/19 15:55 10/11/19 16:25 10/11/19 17:35 10/11/19 19:11 Glucose (Fingerstick) 66 mg/dL (70-99) 74 mg/dL (70-99) 78 mg/dL (70-99) 70 mg/dL (70-99) Test 10/12/19 04:45 White Blood Count 21.6 x10^3/uL (4.0-11.0) Red Blood Count 3.54 x10^6/uL (3.50-5.40) Hemoglobin 10.4 g/dL (12.0-15.5) Hematocrit 31.0 % (36.0-47.0) Mean Corpuscular Volume 88 fL (79-100) Mean Corpuscular Hemoglobin 29 pg (25-35) Mean Corpuscular Hemoglobin Concent 34 g/dL (31-37) Red Cell Distribution Width 15.5 % (11.5-14.5) Platelet Count 192 x10^3/uL (140-400) Glucose Level 97 mg/dL (70-99) Medications Current Medications Sodium Chloride (Normal Saline Flush) 3 ml QSHIFT PRN IV AFTER MEDS AND BLOOD DRAWS; Start 10/11/19 at 06:00; Stop 10/12/19 at 01:32; Status DC Ringer's Solution 1,000 ml @ 125 mls/hr Q8H IV Last administered on 10/12/19at 05:16; Start 10/11/19 at 05:56 Acetaminophen (Tylenol) 650 mg PRN Q6HRS PRN PO MILD PAIN / TEMP; Start 10/11/19 at 06:00; Stop 10/12/19 at 01:33; Status DC Ondansetron HCl (Zofran) 4 mg PRN Q4HRS PRN IV NAUSEA/VOMITING 1ST CHOICE; Start 10/11/19 at 06:00; Stop 10/12/19 at 01:33; Status DC Terbutaline Sulfate (Brethine) 0.25 mg 1X PRN PRN SQ SEE COMMENTS; Start 10/11/19 at 06:00; Stop 10/12/19 at 05:59; Status DC Lidocaine HCl (Xylocaine 1% Pf 30ml Vial) 30 ml 1X PRN PRN INJ SEE COMMENTS; Start 10/11/19 at 06:00; Stop 10/13/19 at 05:59 Oxytocin/Sodium Chloride 500 ml @ 0 mls/hr CONT PRN IV SEE I/O RECORD; Start 10/11/19 at 06:00 Oxytocin/Sodium Chloride 500 ml @ 0 mls/hr CONT PRN PRN IV Post delivery bleeding; Start 10/11/19 at 06:00 Ibuprofen (Motrin) 800 mg PRN Q6HRS PRN PO MODERATE PAIN 4-6; Start 10/11/19 at 06:00; Stop 10/12/19 at 01:33; Status DC Butorphanol Tartrate (Stadol) 2 mg PRN Q2HRS PRN IV LABOR PAIN; Start 10/11/19 at 06:00 Penicillin G Potassium 9043224 unit/Dextrose 100 ml @ 100 mls/hr 1X ONCE IV Last administered on 10/11/19at 06:51; Start 10/11/19 at 06:00; Stop 10/11/19 at 06:59; Status DC Penicillin G Potassium [id number] unit/Dextrose 50 ml @ 100 mls/hr Q4H IV Last administered on 10/11/19at 22:01; Start 10/11/19 at 10:00 Oxytocin/Sodium Chloride (Oxytocin Premix Infusion) 30 unit STK-MED ONCE IV ; Start 10/11/19 at 07:30; Stop 10/11/19 at 08:50; Status DC Ringer's Solution 1,000 ml @ 1,000 mls/hr Q1H IV Last administered on 10/11/19at 11:49; Start 10/11/19 at 11:30; Stop 10/11/19 at 12:29; Status DC Ringer's Solution 500 ml @ 500 mls/hr 1X PRN PRN IV HYPOTENSION; Start 10/11/19 at 11:30; Stop 10/12/19 at 11:29 Ephedrine Sulfate (ePHEDrine PF IN SALINE SYRINGE) 10 mg PRN Q2MIN PRN IV IF SBP<90; Start 10/11/19 at 11:30 Phenylephrine HCl (PHENYLEPHRINE in 0.9% NACL PF) 0.05 mg PRN Q2MIN PRN IV SBP less than 90; Start 10/11/19 at 11:30 Naloxone HCl (Narcan) 0.04 mg PRN Q1MIN PRN IV SEE COMMENTS; Start 10/11/19 at 11:30 Fentanyl Citrate (Fentanyl 2ml Vial) 100 mcg PRN 1X PRN EPID FOR ANESTHESIA Last administered on 10/11/19at 11:48; Start 10/11/19 at 11:30; Stop 10/12/19 at 11:29 Bupivacaine HCl (Sensorcaine Mpf 0.25%) 10 ml PRN 1X PRN EPID FOR ANESTHESIA; Start 10/11/19 at 11:30; Stop 10/12/19 at 11:29 Fentanyl Citrate 50 ml @ 14 mls/hr CONT PRN EPID PAIN Last administered on 10/11/19at 22:02; Start 10/11/19 at 11:30 Ondansetron HCl (Zofran) 4 mg PRN Q6HRS PRN IVP NAUSEA/VOMITING; Start 10/11/19 at 11:30 Diphenhydramine HCl (Benadryl) 12.5 mg PRN Q2HR PRN IV ITCHING; Start 10/11/19 at 11:30 Nalbuphine HCl (Nubain) 2.5 mg PRN Q2HR PRN IV ITCHING; Start 10/11/19 at 11:30 Ropivacaine (Naropin 0.2%) 20 ml 1X PRN PRN EPID PER ANESTHESIA Last administered on 10/11/19at 11:49; Start 10/11/19 at 11:30; Stop 10/11/19 at 11:49; Status DC Fentanyl Citrate 50 ml @ As Directed STK-MED ONCE .ROUTE ; Start 10/11/19 at 11:37; Stop 10/11/19 at 11:37; Status DC Ropivacaine (Naropin 0.2%) 10 ml STK-MED ONCE .ROUTE ; Start 10/11/19 at 11:37; Stop 10/11/19 at 11:38; Status DC Lidocaine HCl (Lidocaine Pf 2% Vial) 5 ml STK-MED ONCE .ROUTE ; Start 10/11/19 at 23:06; Stop 10/11/19 at 23:07; Status DC Lidocaine HCl (Lidocaine Pf 2% Vial) 5 ml STK-MED ONCE .ROUTE ; Start 10/11/19 at 23:08; Stop 10/11/19 at 23:08; Status DC Lidocaine HCl (Lidocaine Pf 2% Vial) 5 ml STK-MED ONCE .ROUTE ; Start 10/11/19 at 23:08; Stop 10/11/19 at 23:09; Status DC Ringer's Solution 1,000 ml @ 1,000 mls/hr Q1H IV ; Start 10/11/19 at 23:08; Stop 10/12/19 at 00:07; Status DC Cefazolin Sodium 3 gm/Dextrose 100 ml @ 200 mls/hr 1X ONCE IV ; Start 10/11/19 at 23:30; Stop 10/11/19 at 23:59; Status DC Citric Acid/ Sodium Citrate (Bicitra) 30 ml 1X ONCE PO Last administered on 10/11/19at 23:13; Start 10/11/19 at 23:15; Stop 10/11/19 at 23:16; Status DC Ketamine HCl (Ketamine) 50 mg STK-MED ONCE .ROUTE ; Start 10/11/19 at 23:25; Stop 10/11/19 at 23:25; Status DC Midazolam HCl (Versed) 2 mg STK-MED ONCE .ROUTE ; Start 10/11/19 at 23:25; Stop 10/11/19 at 23:26; Status DC Morphine Sulfate (Morphine Preservative Free) 10 mg STK-MED ONCE .ROUTE ; Start 10/11/19 at 23:26; Stop 10/11/19 at 23:26; Status DC Phenylephrine HCl (PHENYLEPHRINE in 0.9% NACL PF) 1 mg STK-MED ONCE IV ; Start 10/11/19 at 23:26; Stop 10/11/19 at 23:26; Status DC Oxytocin (Pitocin) 10 unit STK-MED ONCE .ROUTE ; Start 10/11/19 at 23:57; Stop 10/11/19 at 23:57; Status DC Ondansetron HCl (Zofran) 4 mg STK-MED ONCE .ROUTE ; Start 10/11/19 at 23:57; Stop 10/11/19 at 23:58; Status DC Propofol 20 ml @ As Directed STK-MED ONCE IV ; Start 10/12/19 at 00:02; Stop 10/12/19 at 00:03; Status DC Ketamine HCl (Ketamine) 50 mg STK-MED ONCE .ROUTE ; Start 10/12/19 at 00:05; Stop 10/12/19 at 00:06; Status DC Oxytocin (Pitocin) 10 unit STK-MED ONCE .ROUTE ; Start 10/12/19 at 00:30; Stop 10/12/19 at 00:32; Status DC Oxytocin (Pitocin) 10 unit STK-MED ONCE .ROUTE ; Start 10/12/19 at 00:31; Stop 10/12/19 at 00:32; Status DC Sodium Chloride (Normal Saline Flush) 3 ml QSHIFT PRN IV AFTER MEDS AND BLOOD DRAWS; Start 10/12/19 at 01:30 Oxytocin/Sodium Chloride 500 ml @ 125 mls/hr CONT PRN IV EXCESSIVE POST- BLEEDING; Start 10/12/19 at 01:30; Stop 10/12/19 at 09:29; Status DC Acetaminophen (Tylenol) 650 mg PRN Q6HRS PRN PO MILD PAIN / TEMP; Start 10/12/19 at 01:30 Ibuprofen (Motrin) 800 mg PRN Q8HRS PRN PO INFLAMMATION; Start 10/12/19 at 01:30 Docusate Sodium (Colace) 100 mg PRN BID PRN PO CONSTIPATION 1ST CHOICE; Start 10/12/19 at 01:30 Ferrous Sulfate (Feosol) 325 mg BIDWMEALS PO ; Start 10/12/19 at 17:00 Zolpidem Tartrate (Ambien) 5 mg PRN QHS PRN PO INSOMNIA, MAY REPEAT X1; Start 10/12/19 at 01:30 Info (Do NOT chart on this placeholder) 1 ea PRN 1X PRN MC SEE COMMENTS; Start 10/12/19 at 01:30 Info (Do NOT chart on this placeholder) 1 ea PRN 1X PRN MC SEE COMMENTS; Start 10/12/19 at 01:30 Oxycodone/ Acetaminophen (Percocet 5/325) 1 tab PRN Q4HRS PRN PO MILD PAIN 1-3; Start 10/12/19 at 01:30 Oxycodone/ Acetaminophen (Percocet 5/325) 2 tab PRN Q4HRS PRN PO MODERATE PAIN, SEVERE PAIN; Start 10/12/19 at 01:30 Ketorolac Tromethamine (Toradol 30mg Vial) 30 mg PRN Q6HRS PRN IVP MODERATE PAIN 4-6 Last administered on 10/12/19at 08:36; Start 10/12/19 at 02:30; Stop 10/17/19 at 02:29 Morphine Sulfate (Morphine Sulfate) 4 mg 1X ONCE IV ; Start 10/12/19 at 05:00; Stop 10/12/19 at 05:01; Status DC Potassium Chloride (Klor-Con) 20 meq DAILYWBKFT PO ; Start 10/12/19 at 10:30 Active Scripts Active Prednisone 50 Mg Tablet 1 Tab PO DAILY Keflex (Cephalexin) 500 Mg Capsule 500 Mg PO TID 7 Days Orphenadrine Citrate 100 Mg Tablet.er 100 Mg PO BID PRN Prednisone 20 Mg Tablet 2 Tab PO DAILY Start this prescription on 09/24/18 Alprazolam 0.5 Mg Tablet 0.5 Mg PO PRN Q8HRS PRN 7 Days Reported Levothyroxine Sodium 200 Mcg Tablet 1 Tab PO DAILY Proair Hfa Inhaler (Albuterol Sulfate) 8.5 Gm Hfa.aer.ad 1 Puff INH PRN Q6HRS PRN Flovent 110MCG Hfa (Fluticasone Propionate) 12 Gm Aer.w.adap 2 Puff IH BID Miralax (Polyethylene Glycol 3350) 17 Gm Powd.pack 1 Packet PO PRN PRN Magnesium (Magnesium Oxide) 400 Mg Capsule 1 Cap PO HS PRN Protonix (Pantoprazole Sodium) 20 Mg Tablet.dr 40 Mg PO DAILY Montelukast Sodium Tablet (Montelukast Sodium) 10 Mg Tablet 1 Tab PO HS Losartan Potassium 50 Mg Tablet 50 Mg PO DAILY Exam CTAB RRR S/FFNT below umb dressing dry no C/C/E Assessment A/P 39y POD #1 s/p 1 LTCS 1.) PO - doing well 2.) Hgb 11.0 -> 10.6 (but only 4hrs after surgery, will repeat in am 3.) Pre-gestational vs gestational DM - PO FSBS nml 4.) Asthma - poorly controlled, sees valet runner, on Albuterol prn, recently completed a course of Prednisone 5.) Sleep Apnea - on 2L at night 6.) Hypothyroidism/Charlene thyroiditis - on Tirosint (Synthroid), taking home med, states that makes her potassium low, BMP ordered 7.) Tob use - 1/2 PPD 8.) Girl: AGUSTIN Mora MD Oct 12, 2019 10:24
--- NOTE | 2019-10-12 10:51 | OP ---
DATE OF SURGERY: 10/11/2019 PREOPERATIVE DIAGNOSES: 1. Intrauterine , at 38 weeks 0 day by 7-week ultrasound. 2. Arrest of dilation at 9 cm. 3. Advanced maternal age. 4. Pregestational diabetes versus gestational diabetes. 5. Large for gestation infant measuring at 3497 g, which was in the 96th percentile on 09/27. 6. Asthma, poorly controlled. 7. Sleep apnea. 8. Charlene thyroiditis/hypothyroidism. 9. Tobacco use. 10. GBS-uria. POSTOPERATIVE DIAGNOSES: 1. Intrauterine , at 38 weeks 0 day by 7-week ultrasound. 2. Arrest of dilation at 9 cm. 3. Advanced maternal age. 4. Progestational diabetes versus gestational diabetes. 5. Large for gestation infant measuring at 3497 g, which was in the 96th percentile on 09/27. 6. Asthma, poorly controlled. 7. Sleep apnea. 8. Charlene thyroiditis/hypothyroidism. 9. Tobacco use. 10. GBS-uria. PROCEDURE: Primary low transverse . SURGEON: Brandon Garnica M.D. ANESTHESIA: Epidural. ESTIMATED BLOOD LOSS: 700 mL. FLUIDS: 1200 mL. URINE OUTPUT: 100 mL. FINDINGS: Viable female delivered at 2348 weighing 8 pounds 3 ounces with Apgars of 8 and 9. Cord arterial blood gas reveals a pH of 7.26 with a base excess of -9 and a cord venous blood gas with pH of 7.26 and a base excess of -3. Normal maternal anatomy noted. COMPLICATIONS: None. INDICATIONS: The patient is a 39-year-old 4, para 2-0-1-2 who presented to Labor and Delivery at 38 weeks 0 days by 7-week ultrasound for scheduled induction. The patient's was complicated by advanced maternal age, pregestational diabetes versus gestational diabetes, large for gestation , poorly controlled asthma, sleep apnea, and tobacco use. She began her care with Dr. Bill in [place] but switched in the third trimester to our office. She had been following a high-risk doctor in in [place] for the previously mentioned conditions. When the patient arrived she was started on Pitocin. Around 10:30 her membranes were ruptured artificially. At that time, the patient was 2-3. The patient progressed to 7 cm at around 16:30. At that time, her Pitocin had reached 20U/hr, but around 19:15 when she was rechecked, she remained at 7 cm. At that time, the Pitocin was reduced to help improve the heart tracing as well as help relax the patient. The patient eventually progressed to 9 around 20:00, but after a hour's time, the patient remained unchanged. Pitocin was again increased again. The patient was eventually rechecked at 22:45 and she still had an anterior lip. With the next three contractions, the lip was attempted to be reduced with pushing, but the cervix remained and felt like it was beginning to swell. Since the cervix could not be reduced and the baby was not making any significant descent, the decision was made to move towards section. DESCRIPTION OF PROCEDURE: The patient was taken to the operating room where her epidural was redosed. Her anesthesia was found to be adequate. The patient was prepped and draped in a normal sterile fashion in a dorsal supine position with left lateral tilt. A Pfannenstiel skin incision was made approximately 2 cm above her pubic symphysis and carried down to the underlying layer of fascia. The fascia was then nicked in the midline. Fascial incision was then extended laterally with Osman scissors. The superior aspect of the fascial incision was grasped with Lauren clamps, elevated, and the underlying rectus muscle was dissected off with Osman scissors. Attention was then turned to the inferior aspect and the fascial incision which was grasped with Lauren clamps, elevated, and the underlying rectus muscle was dissected off again with Osman scissors. The midline of the rectus muscle was identified and . At that point, the peritoneum was then grasped with 2 hemostats, tented up, and entered sharply with Metzenbaum scissors. The peritoneal incision was then extended superiorly and inferiorly with good visualization of the bladder with traction and countertraction. At that point, the Nikita ring was then placed into the abdomen to gain a better view of the lower uterine segment. Bladder flap was created with Metzenbaum scissors. Lower uterine segment was then incised in a transverse fashion with the scalpel. The uterine incision was then extended with traction, countertraction. The infant was found to be OA. The infant's head was then flexed and brought to the hysterotomy. The rest of the infant was delivered atraumatically. Nose and mouth were bulb suctioned. Cord was double clamped and cut and the infant was handed over to the waiting RN. Cord gases were sent. The placenta was then removed manually and the uterus was cleared of all clots and debris. The uterine incision was then repaired with #1 chromic in a running locked fashion. Second layer of the same suture was used to imbricate. There were areas on the left and right lateral edges that appeared to be bleeding. A [id number] stitch was then placed on the left. This stitch was then locked until hemostasis was achieved near the midline of the uterine incision. The right side of the uterine incision that was bleeding was also corrected with a [id number] and this stitch was then ran in a locking fashion until hemostasis was achieved. At that point, the gutters were copiously irrigated and cleared of all clots and debris. The peritoneum was reapproximated with 2-0 Vicryl in a running fashion. The muscle was reapproximated with 2-0 Vicryl in a running fashion. The fascia was then closed with 0 Vicryl in a running fashion. The space was closed with a 2-0 Vicryl. The skin was then closed with 3-0 Monocryl in a subcuticular manner. The patient tolerated the procedure well. Sponges, laps, and needles were correct x 3. Three grams of Ancef were given prior to initiation of the procedure. The patient was taken to the recovery room in stable condition. BRANDON GARNICA MD DR: ELYSSA/tamir JOB#: [id number] / [id number] OSORIO
[2019-10-12 11:00] VITALS: BP 95/59
[2019-10-12] MEDS: oxyCODONE/APAP 5/325 1 TAB TABLET PO PRN ×3 (12:33→22:51)
[2019-10-12] MEDS: DOCUSATE SODIUM 100 MG CAPSULE. PO PRN ×2 (12:33→22:51)
[2019-10-12] MEDS: POTASSIUM CHLORIDE 20 MEQ TABLET.ER. PO SCH (12:34)
[2019-10-12] MEDS ORDERED: FERROUS SULFATE 325 MG TABLET. PO SCH (17:00)
[2019-10-12] MEDS: IBUPROFEN 400 MG TABLET. PO PRN (17:14)
[2019-10-12 17:57] VITALS: BP 103/70
[2019-10-12 21:26] VITALS: BP 108/60
[2019-10-12] MEDS: MAGNESIUM HYDROXIDE 2,400 MG/30 ML ORAL.SUSP. PO PRN (22:51)
[2019-10-13 03:43] VITALS: BP 123/86
[2019-10-13] MEDS: oxyCODONE/APAP 5/325 1 TAB TABLET PO PRN ×3 (03:48→16:56)
[2019-10-13] MEDS: IBUPROFEN 400 MG TABLET. PO PRN ×3 (03:48→22:47)
[2019-10-13 05:07] LABS: HEMATOCRIT 29.5 % (36.0-47.0); RED BLOOD COUNT 3.36 x10^6/uL (3.50-5.40); RED CELL DISTRIBUTION WIDTH 15.7 % (11.5-14.5); WHITE BLOOD COUNT 17.5 x10^3/uL (4.0-11.0)
[2019-10-13 05:49] LABS: CALCIUM 8.5 mg/dL (8.5-10.1); CREATININE 0.9 mg/dL (0.6-1.0); POTASSIUM 3.7 mmol/L (3.5-5.1)
[2019-10-13 08:45] VITALS: BP 105/75
[2019-10-13] MEDS: DOCUSATE SODIUM 100 MG CAPSULE. PO PRN ×2 (08:59→16:56)
[2019-10-13] MEDS: POTASSIUM CHLORIDE 20 MEQ TABLET.ER. PO SCH (08:59)
--- NOTE | 2019-10-13 09:49 | PDOC ---
OB Progress Note Notes Pt with pain located in a similar location to when she had the round ligament pain during . Overall good control. Kavya PO. Voiding. Minimal lochia. Lab Laboratory Tests Test 10/11/19 15:55 10/11/19 16:25 10/11/19 17:35 10/11/19 19:11 Glucose (Fingerstick) 66 mg/dL (70-99) 74 mg/dL (70-99) 78 mg/dL (70-99) 70 mg/dL (70-99) Test 10/12/19 04:45 10/13/19 04:15 White Blood Count 21.6 x10^3/uL (4.0-11.0) 17.5 x10^3/uL (4.0-11.0) Red Blood Count 3.54 x10^6/uL (3.50-5.40) 3.36 x10^6/uL (3.50-5.40) Hemoglobin 10.4 g/dL (12.0-15.5) 10.0 g/dL (12.0-15.5) Hematocrit 31.0 % (36.0-47.0) 29.5 % (36.0-47.0) Mean Corpuscular Volume 88 fL (79-100) 88 fL (79-100) Mean Corpuscular Hemoglobin 29 pg (25-35) 30 pg (25-35) Mean Corpuscular Hemoglobin Concent 34 g/dL (31-37) 34 g/dL (31-37) Red Cell Distribution Width 15.5 % (11.5-14.5) 15.7 % (11.5-14.5) Platelet Count 192 x10^3/uL (140-400) 220 x10^3/uL (140-400) Glucose Level 97 mg/dL (70-99) 104 mg/dL (70-99) Sodium Level 137 mmol/L (136-145) Potassium Level 3.7 mmol/L (3.5-5.1) Chloride Level 102 mmol/L (98-107) Carbon Dioxide Level 27 mmol/L (21-32) Anion Gap 8 (6-14) Blood Urea Nitrogen 7 mg/dL (7-20) Creatinine 0.9 mg/dL (0.6-1.0) Estimated GFR (Cockcroft-Gault) 69.0 Calcium Level 8.5 mg/dL (8.5-10.1) Laboratory Tests Test 10/13/19 04:15 White Blood Count 17.5 x10^3/uL (4.0-11.0) Red Blood Count 3.36 x10^6/uL (3.50-5.40) Hemoglobin 10.0 g/dL (12.0-15.5) Hematocrit 29.5 % (36.0-47.0) Mean Corpuscular Volume 88 fL (79-100) Mean Corpuscular Hemoglobin 30 pg (25-35) Mean Corpuscular Hemoglobin Concent 34 g/dL (31-37) Red Cell Distribution Width 15.7 % (11.5-14.5) Platelet Count 220 x10^3/uL (140-400) Sodium Level 137 mmol/L (136-145) Potassium Level 3.7 mmol/L (3.5-5.1) Chloride Level 102 mmol/L (98-107) Carbon Dioxide Level 27 mmol/L (21-32) Anion Gap 8 (6-14) Blood Urea Nitrogen 7 mg/dL (7-20) Creatinine 0.9 mg/dL (0.6-1.0) Estimated GFR (Cockcroft-Gault) 69.0 Glucose Level 104 mg/dL (70-99) Calcium Level 8.5 mg/dL (8.5-10.1) Medications Current Medications Sodium Chloride (Normal Saline Flush) 3 ml QSHIFT PRN IV AFTER MEDS AND BLOOD DRAWS; Start 10/11/19 at 06:00; Stop 10/12/19 at 01:32; Status DC Ringer's Solution 1,000 ml @ 125 mls/hr Q8H IV Last administered on 10/12/19at 05:16; Start 10/11/19 at 05:56; Stop 10/13/19 at 00:21; Status DC Acetaminophen (Tylenol) 650 mg PRN Q6HRS PRN PO MILD PAIN / TEMP; Start 10/11/19 at 06:00; Stop 10/12/19 at 01:33; Status DC Ondansetron HCl (Zofran) 4 mg PRN Q4HRS PRN IV NAUSEA/VOMITING 1ST CHOICE; Start 10/11/19 at 06:00; Stop 10/12/19 at 01:33; Status DC Terbutaline Sulfate (Brethine) 0.25 mg 1X PRN PRN SQ SEE COMMENTS; Start 10/11/19 at 06:00; Stop 10/12/19 at 05:59; Status DC Lidocaine HCl (Xylocaine 1% Pf 30ml Vial) 30 ml 1X PRN PRN INJ SEE COMMENTS; Start 10/11/19 at 06:00; Stop 10/13/19 at 05:59; Status DC Oxytocin/Sodium Chloride 500 ml @ 0 mls/hr CONT PRN IV SEE I/O RECORD; Start 10/11/19 at 06:00; Stop 10/13/19 at 00:21; Status DC Oxytocin/Sodium Chloride 500 ml @ 0 mls/hr CONT PRN PRN IV Post delivery bleeding; Start 10/11/19 at 06:00; Stop 10/13/19 at 00:21; Status DC Ibuprofen (Motrin) 800 mg PRN Q6HRS PRN PO MODERATE PAIN 4-6; Start 10/11/19 at 06:00; Stop 10/12/19 at 01:33; Status DC Butorphanol Tartrate (Stadol) 2 mg PRN Q2HRS PRN IV LABOR PAIN; Start 10/11/19 at 06:00; Stop 10/13/19 at 00:21; Status DC Penicillin G Potassium 9423973 unit/Dextrose 100 ml @ 100 mls/hr 1X ONCE IV Last administered on 10/11/19at 06:51; Start 10/11/19 at 06:00; Stop 10/11/19 at 06:59; Status DC Penicillin G Potassium [id number] unit/Dextrose 50 ml @ 100 mls/hr Q4H IV Last administered on 10/11/19at 22:01; Start 10/11/19 at 10:00; Stop 10/13/19 at 00:21; Status DC Oxytocin/Sodium Chloride (Oxytocin Premix Infusion) 30 unit STK-MED ONCE IV ; Start 10/11/19 at 07:30; Stop 10/11/19 at 08:50; Status DC Ringer's Solution 1,000 ml @ 1,000 mls/hr Q1H IV Last administered on 10/11/19at 11:49; Start 10/11/19 at 11:30; Stop 10/11/19 at 12:29; Status DC Ringer's Solution 500 ml @ 500 mls/hr 1X PRN PRN IV HYPOTENSION; Start 10/11/19 at 11:30; Stop 10/12/19 at 11:29; Status DC Ephedrine Sulfate (ePHEDrine PF IN SALINE SYRINGE) 10 mg PRN Q2MIN PRN IV IF SBP<90; Start 10/11/19 at 11:30 Phenylephrine HCl (PHENYLEPHRINE in 0.9% NACL PF) 0.05 mg PRN Q2MIN PRN IV SBP less than 90; Start 10/11/19 at 11:30 Naloxone HCl (Narcan) 0.04 mg PRN Q1MIN PRN IV SEE COMMENTS; Start 10/11/19 at 11:30 Fentanyl Citrate (Fentanyl 2ml Vial) 100 mcg PRN 1X PRN EPID FOR ANESTHESIA Last administered on 10/11/19at 11:48; Start 10/11/19 at 11:30; Stop 10/12/19 at 11:29; Status DC Bupivacaine HCl (Sensorcaine Mpf 0.25%) 10 ml PRN 1X PRN EPID FOR ANESTHESIA; Start 10/11/19 at 11:30; Stop 10/12/19 at 11:29; Status DC Fentanyl Citrate 50 ml @ 14 mls/hr CONT PRN EPID PAIN Last administered on 10/11/19at 22:02; Start 10/11/19 at 11:30; Stop 10/13/19 at 00:21; Status DC Ondansetron HCl (Zofran) 4 mg PRN Q6HRS PRN IVP NAUSEA/VOMITING; Start 10/11/19 at 11:30 Diphenhydramine HCl (Benadryl) 12.5 mg PRN Q2HR PRN IV ITCHING; Start 10/11/19 a t 11:30 Nalbuphine HCl (Nubain) 2.5 mg PRN Q2HR PRN IV ITCHING; Start 10/11/19 at 11:30 Ropivacaine (Naropin 0.2%) 20 ml 1X PRN PRN EPID PER ANESTHESIA Last administered on 10/11/19at 11:49; Start 10/11/19 at 11:30; Stop 10/11/19 at 11:49; Status DC Fentanyl Citrate 50 ml @ As Directed STK-MED ONCE .ROUTE ; Start 10/11/19 at 11:37; Stop 10/11/19 at 11:37; Status DC Ropivacaine (Naropin 0.2%) 10 ml STK-MED ONCE .ROUTE ; Start 10/11/19 at 11:37; Stop 10/11/19 at 11:38; Status DC Lidocaine HCl (Lidocaine Pf 2% Vial) 5 ml STK-MED ONCE .ROUTE ; Start 10/11/19 at 23:06; Stop 10/11/19 at 23:07; Status DC Lidocaine HCl (Lidocaine Pf 2% Vial) 5 ml STK-MED ONCE .ROUTE ; Start 10/11/19 at 23:08; Stop 10/11/19 at 23:08; Status DC Lidocaine HCl (Lidocaine Pf 2% Vial) 5 ml STK-MED ONCE .ROUTE ; Start 10/11/19 at 23:08; Stop 10/11/19 at 23:09; Status DC Ringer's Solution 1,000 ml @ 1,000 mls/hr Q1H IV ; Start 10/11/19 at 23:08; Stop 10/12/19 at 00:07; Status DC Cefazolin Sodium 3 gm/Dextrose 100 ml @ 200 mls/hr 1X ONCE IV ; Start 10/11/19 at 23:30; Stop 10/11/19 at 23:59; Status DC Citric Acid/ Sodium Citrate (Bicitra) 30 ml 1X ONCE PO Last administered on 10/11/19at 23:13; Start 10/11/19 at 23:15; Stop 10/11/19 at 23:16; Status DC Ketamine HCl (Ketamine) 50 mg STK-MED ONCE .ROUTE ; Start 10/11/19 at 23:25; Stop 10/11/19 at 23:25; Status DC Midazolam HCl (Versed) 2 mg STK-MED ONCE .ROUTE ; Start 10/11/19 at 23:25; Stop 10/11/19 at 23:26; Status DC Morphine Sulfate (Morphine Preservative Free) 10 mg STK-MED ONCE .ROUTE ; Start 10/11/19 at 23:26; Stop 10/11/19 at 23:26; Status DC Phenylephrine HCl (PHENYLEPHRINE in 0.9% NACL PF) 1 mg STK-MED ONCE IV ; Start 10/11/19 at 23:26; Stop 10/11/19 at 23:26; Status DC Oxytocin (Pitocin) 10 unit STK-MED ONCE .ROUTE ; Start 10/11/19 at 23:57; Stop 10/11/19 at 23:57; Status DC Ondansetron HCl (Zofran) 4 mg STK-MED ONCE .ROUTE ; Start 10/11/19 at 23:57; Stop 10/11/19 at 23:58; Status DC Propofol 20 ml @ As Directed STK-MED ONCE IV ; Start 10/12/19 at 00:02; Stop 10/12/19 at 00:03; Status DC Ketamine HCl (Ketamine) 50 mg STK-MED ONCE .ROUTE ; Start 10/12/19 at 00:05; Stop 10/12/19 at 00:06; Status DC Oxytocin (Pitocin) 10 unit STK-MED ONCE .ROUTE ; Start 10/12/19 at 00:30; Stop 10/12/19 at 00:32; Status DC Oxytocin (Pitocin) 10 unit STK-MED ONCE .ROUTE ; Start 10/12/19 at 00:31; Stop 10/12/19 at 00:32; Status DC Sodium Chloride (Normal Saline Flush) 3 ml QSHIFT PRN IV AFTER MEDS AND BLOOD DRAWS; Start 10/12/19 at 01:30 Oxytocin/Sodium Chloride 500 ml @ 125 mls/hr CONT PRN IV EXCESSIVE POST- BLEEDING; Start 10/12/19 at 01:30; Stop 10/12/19 at 09:29; Status DC Acetaminophen (Tylenol) 650 mg PRN Q6HRS PRN PO MILD PAIN / TEMP; Start 10/12/19 at 01:30 Ibuprofen (Motrin) 800 mg PRN Q8HRS PRN PO INFLAMMATION Last administered on 10/13/19at 03:48; Start 10/12/19 at 01:30 Docusate Sodium (Colace) 100 mg PRN BID PRN PO CONSTIPATION 1ST CHOICE Last administered on 10/13/19at 08:59; Start 10/12/19 at 01:30 Ferrous Sulfate (Feosol) 325 mg BIDWMEALS PO ; Start 10/12/19 at 17:00; Stop 10/13/19 at 00:21; Status DC Zolpidem Tartrate (Ambien) 5 mg PRN QHS PRN PO INSOMNIA, MAY REPEAT X1; Start 10/12/19 at 01:30 Info (Do NOT chart on this placeholder) 1 ea PRN 1X PRN MC SEE COMMENTS; Start 10/12/19 at 01:30 Info (Do NOT chart on this placeholder) 1 ea PRN 1X PRN MC SEE COMMENTS; Start 10/12/19 at 01:30 Oxycodone/ Acetaminophen (Percocet 5/325) 1 tab PRN Q4HRS PRN PO MILD PAIN 1-3 Last administered on 10/13/19at 09:01; Start 10/12/19 at 01:30 Oxycodone/ Acetaminophen (Percocet 5/325) 2 tab PRN Q4HRS PRN PO MODERATE PAIN, SEVERE PAIN; Start 10/12/19 at 01:30 Ketorolac Tromethamine (Toradol 30mg Vial) 30 mg PRN Q6HRS PRN IVP MODERATE PAIN 4-6 Last administered on 10/12/19at 08:36; Start 10/12/19 at 02:30; Stop 10/13/19 at 00:21; Status DC Morphine Sulfate (Morphine Sulfate) 4 mg 1X ONCE IV ; Start 10/12/19 at 05:00; Stop 10/12/19 at 05:01; Status DC Potassium Chloride (Klor-Con) 20 meq DAILYWBKFT PO Last administered on 10/13/19at 08:59; Start 10/12/19 at 10:30 Magnesium Hydroxide (Milk Of Magnesia) 2,400 mg PRN DAILY PRN PO CONSTIPATION Last administered on 10/12/19at 22:51; Start 10/12/19 at 18:15 Active Scripts Active Prednisone 50 Mg Tablet 1 Tab PO DAILY Keflex (Cephalexin) 500 Mg Capsule 500 Mg PO TID 7 Days Orphenadrine Citrate 100 Mg Tablet.er 100 Mg PO BID PRN Prednisone 20 Mg Tablet 2 Tab PO DAILY Start this prescription on 09/24/18 Alprazolam 0.5 Mg Tablet 0.5 Mg PO PRN Q8HRS PRN 7 Days Reported Levothyroxine Sodium 200 Mcg Tablet 1 Tab PO DAILY Proair Hfa Inhaler (Albuterol Sulfate) 8.5 Gm Hfa.aer.ad 1 Puff INH PRN Q6HRS PRN Flovent 110MCG Hfa (Fluticasone Propionate) 12 Gm Aer.w.adap 2 Puff IH BID Miralax (Polyethylene Glycol 3350) 17 Gm Powd.pack 1 Packet PO PRN PRN Magnesium (Magnesium Oxide) 400 Mg Capsule 1 Cap PO HS PRN Protonix (Pantoprazole Sodium) 20 Mg Tablet.dr 40 Mg PO DAILY Montelukast Sodium Tablet (Montelukast Sodium) 10 Mg Tablet 1 Tab PO HS Losartan Potassium 50 Mg Tablet 50 Mg PO DAILY Exam FFNT below umb Inc: C/D/I no C/C/E Assessment A/P 39y POD #2 s/p 1 LTCS 1.) PO - doing well 2.) Hgb 11.0 -> 10.6 -> 10.0 3.) Pre-gestational vs gestational DM - PO FSBS nml 4.) Asthma - poorly controlled, sees community engagement representative, on Albuterol prn, recently completed a course of Prednisone 5.) Sleep Apnea - on 2L at night 6.) Hypothyroidism/Charlene thyroiditis - on Tirosint (Synthroid), taking home med, states that makes her potassium low 7.) Tob use - / PPD 8.) Girl: AGUSTIN Mora MD Oct 13, 2019 09:49
[2019-10-13] MEDS: MAGNESIUM HYDROXIDE 2,400 MG/30 ML ORAL.SUSP. PO PRN ×2 (11:28→22:45)
[2019-10-13 15:30] VITALS: BP 98/59
[2019-10-13 20:00] VITALS: BP 112/68
[2019-10-14] VITALS: BP 104/61
[2019-10-14] MEDS: oxyCODONE/APAP 5/325 1 TAB TABLET PO PRN ×2 (00:28→10:28)
[2019-10-14 04:00] VITALS: BP 114/83
--- NOTE | 2019-10-14 09:41 | PDOC ---
OB Progress Note Notes Pt with good pain control. Kavya PO. Voiding. Minimal lochia. The pt has noticed some b/l swelling that started last night. The pt wonders what she can take for anxiety. She was taking CBD oil at home. Her mother also called the unit and mentioned that her daughter had PP depression with her other two children. Lab Laboratory Tests Test 10/13/19 04:15 White Blood Count 17.5 x10^3/uL (4.0-11.0) Red Blood Count 3.36 x10^6/uL (3.50-5.40) Hemoglobin 10.0 g/dL (12.0-15.5) Hematocrit 29.5 % (36.0-47.0) Mean Corpuscular Volume 88 fL (79-100) Mean Corpuscular Hemoglobin 30 pg (25-35) Mean Corpuscular Hemoglobin Concent 34 g/dL (31-37) Red Cell Distribution Width 15.7 % (11.5-14.5) Platelet Count 220 x10^3/uL (140-400) Sodium Level 137 mmol/L (136-145) Potassium Level 3.7 mmol/L (3.5-5.1) Chloride Level 102 mmol/L (98-107) Carbon Dioxide Level 27 mmol/L (21-32) Anion Gap 8 (6-14) Blood Urea Nitrogen 7 mg/dL (7-20) Creatinine 0.9 mg/dL (0.6-1.0) Estimated GFR (Cockcroft-Gault) 69.0 Glucose Level 104 mg/dL (70-99) Calcium Level 8.5 mg/dL (8.5-10.1) Medications Current Medications Sodium Chloride (Normal Saline Flush) 3 ml QSHIFT PRN IV AFTER MEDS AND BLOOD DRAWS; Start 10/11/19 at 06:00; Stop 10/12/19 at 01:32; Status DC Ringer's Solution 1,000 ml @ 125 mls/hr Q8H IV Last administered on 10/12/19at 05:16; Start 10/11/19 at 05:56; Stop 10/13/19 at 00:21; Status DC Acetaminophen (Tylenol) 650 mg PRN Q6HRS PRN PO MILD PAIN / TEMP; Start 10/11/19 at 06:00; Stop 10/12/19 at 01:33; Status DC Ondansetron HCl (Zofran) 4 mg PRN Q4HRS PRN IV NAUSEA/VOMITING 1ST CHOICE; Start 10/11/19 at 06:00; Stop 10/12/19 at 01:33; Status DC Terbutaline Sulfate (Brethine) 0.25 mg 1X PRN PRN SQ SEE COMMENTS; Start 10/11/19 at 06:00; Stop 10/12/19 at 05:59; Status DC Lidocaine HCl (Xylocaine 1% Pf 30ml Vial) 30 ml 1X PRN PRN INJ SEE COMMENTS; Start 10/11/19 at 06:00; Stop 10/13/19 at 05:59; Status DC Oxytocin/Sodium Chloride 500 ml @ 0 mls/hr CONT PRN IV SEE I/O RECORD; Start 10/11/19 at 06:00; Stop 10/13/19 at 00:21; Status DC Oxytocin/Sodium Chloride 500 ml @ 0 mls/hr CONT PRN PRN IV Post delivery bleeding; Start 10/11/19 at 06:00; Stop 10/13/19 at 00:21; Status DC Ibuprofen (Motrin) 800 mg PRN Q6HRS PRN PO MODERATE PAIN 4-6; Start 10/11/19 at 06:00; Stop 10/12/19 at 01:33; Status DC Butorphanol Tartrate (Stadol) 2 mg PRN Q2HRS PRN IV LABOR PAIN; Start 10/11/19 at 06:00; Stop 10/13/19 at 00:21; Status DC Penicillin G Potassium [id number] unit/Dextrose 100 ml @ 100 mls/hr 1X ONCE IV Last administered on 10/11/19at 06:51; Start 10/11/19 at 06:00; Stop 10/11/19 at 06:59; Status DC Penicillin G Potassium [id number] unit/Dextrose 50 ml @ 100 mls/hr Q4H IV Last administered on 10/11/19at 22:01; Start 10/11/19 at 10:00; Stop 10/13/19 at 00:21; Status DC Oxytocin/Sodium Chloride (Oxytocin Premix Infusion) 30 unit STK-MED ONCE IV ; Start 10/11/19 at 07:30; Stop 10/11/19 at 08:50; Status DC Ringer's Solution 1,000 ml @ 1,000 mls/hr Q1H IV Last administered on 10/11/19at 11:49; Start 10/11/19 at 11:30; Stop 10/11/19 at 12:29; Status DC Ringer's Solution 500 ml @ 500 mls/hr 1X PRN PRN IV HYPOTENSION; Start 10/11/19 at 11:30; Stop 10/12/19 at 11:29; Status DC Ephedrine Sulfate (ePHEDrine PF IN SALINE SYRINGE) 10 mg PRN Q2MIN PRN IV IF SBP<90; Start 10/11/19 at 11:30 Phenylephrine HCl (PHENYLEPHRINE in 0.9% NACL PF) 0.05 mg PRN Q2MIN PRN IV SBP less than 90; Start 10/11/19 at 11:30 Naloxone HCl (Narcan) 0.04 mg PRN Q1MIN PRN IV SEE COMMENTS; Start 10/11/19 at 11:30 Fentanyl Citrate (Fentanyl 2ml Vial) 100 mcg PRN 1X PRN EPID FOR ANESTHESIA Last administered on 10/11/19at 11:48; Start 10/11/19 at 11:30; Stop 10/12/19 at 11:29; Status DC Bupivacaine HCl (Sensorcaine Mpf 0.25%) 10 ml PRN 1X PRN EPID FOR ANESTHESIA; Start 10/11/19 at 11:30; Stop 10/12/19 at 11:29; Status DC Fentanyl Citrate 50 ml @ 14 mls/hr CONT PRN EPID PAIN Last administered on 10/11/19at 22:02; Start 10/11/19 at 11:30; Stop 10/13/19 at 00:21; Status DC Ondansetron HCl (Zofran) 4 mg PRN Q6HRS PRN IVP NAUSEA/VOMITING; Start 10/11/19 at 11:30 Diphenhydramine HCl (Benadryl) 12.5 mg PRN Q2HR PRN IV ITCHING 1ST CHOICE; Start 10/11/19 at 11:30 Nalbuphine HCl (Nubain) 2.5 mg PRN Q2HR PRN IV ITCHING 2ND CHOICE; Start 10/11/19 at 11:30 Ropivacaine (Naropin 0.2%) 20 ml 1X PRN PRN EPID PER ANESTHESIA Last administered on 10/11/19at 11:49; Start 10/11/19 at 11:30; Stop 10/11/19 at 11:49; Status DC Fentanyl Citrate 50 ml @ As Directed STK-MED ONCE .ROUTE ; Start 10/11/19 at 11:37; Stop 10/11/19 at 11:37; Status DC Ropivacaine (Naropin 0.2%) 10 ml STK-MED ONCE .ROUTE ; Start 10/11/19 at 11:37; Stop 10/11/19 at 11:38; Status DC Lidocaine HCl (Lidocaine Pf 2% Vial) 5 ml STK-MED ONCE .ROUTE ; Start 10/11/19 at 23:06; Stop 10/11/19 at 23:07; Status DC Lidocaine HCl (Lidocaine Pf 2% Vial) 5 ml STK-MED ONCE .ROUTE ; Start 10/11/19 at 23:08; Stop 10/11/19 at 23:08; Status DC Lidocaine HCl (Lidocaine Pf 2% Vial) 5 ml STK-MED ONCE .ROUTE ; Start 10/11/19 at 23:08; Stop 10/11/19 at 23:09; Status DC Ringer's Solution 1,000 ml @ 1,000 mls/hr Q1H IV ; Start 10/11/19 at 23:08; Stop 10/12/19 at 00:07; Status DC Cefazolin Sodium 3 gm/Dextrose 100 ml @ 200 mls/hr 1X ONCE IV ; Start 10/11/19 at 23:30; Stop 10/11/19 at 23:59; Status DC Citric Acid/ Sodium Citrate (Bicitra) 30 ml 1X ONCE PO Last administered on 10/11/19at 23:13; Start 10/11/19 at 23:15; Stop 10/11/19 at 23:16; Status DC Ketamine HCl (Ketamine) 50 mg STK-MED ONCE .ROUTE ; Start 10/11/19 at 23:25; Stop 10/11/19 at 23:25; Status DC Midazolam HCl (Versed) 2 mg STK-MED ONCE .ROUTE ; Start 10/11/19 at 23:25; Stop 10/11/19 at 23:26; Status DC Morphine Sulfate (Morphine Preservative Free) 10 mg STK-MED ONCE .ROUTE ; Start 10/11/19 at 23:26; Stop 10/11/19 at 23:26; Status DC Phenylephrine HCl (PHENYLEPHRINE in 0.9% NACL PF) 1 mg STK-MED ONCE IV ; Start 10/11/19 at 23:26; Stop 10/11/19 at 23:26; Status DC Oxytocin (Pitocin) 10 unit STK-MED ONCE .ROUTE ; Start 10/11/19 at 23:57; Stop 10/11/19 at 23:57; Status DC Ondansetron HCl (Zofran) 4 mg STK-MED ONCE .ROUTE ; Start 10/11/19 at 23:57; Stop 10/11/19 at 23:58; Status DC Propofol 20 ml @ As Directed STK-MED ONCE IV ; Start 10/12/19 at 00:02; Stop 10/12/19 at 00:03; Status DC Ketamine HCl (Ketamine) 50 mg STK-MED ONCE .ROUTE ; Start 10/12/19 at 00:05; Stop 10/12/19 at 00:06; Status DC Oxytocin (Pitocin) 10 unit STK-MED ONCE .ROUTE ; Start 10/12/19 at 00:30; Stop 10/12/19 at 00:32; Status DC Oxytocin (Pitocin) 10 unit STK-MED ONCE .ROUTE ; Start 10/12/19 at 00:31; Stop 10/12/19 at 00:32; Status DC Sodium Chloride (Normal Saline Flush) 3 ml QSHIFT PRN IV AFTER MEDS AND BLOOD DRAWS; Start 10/12/19 at 01:30 Oxytocin/Sodium Chloride 500 ml @ 125 mls/hr CONT PRN IV EXCESSIVE POST- BLEEDING; Start 10/12/19 at 01:30; Stop 10/12/19 at 09:29; Status DC Acetaminophen (Tylenol) 650 mg PRN Q6HRS PRN PO MILD PAIN / TEMP; Start 10/12/19 at 01:30 Ibuprofen (Motrin) 800 mg PRN Q8HRS PRN PO INFLAMMATION Last administered on 10/13/19at 22:47; Start 10/12/19 at 01:30 Docusate Sodium (Colace) 100 mg PRN BID PRN PO HARD STOOLS Last administered on 10/13/19at 16:56; Start 10/12/19 at 01:30 Ferrous Sulfate (Feosol) 325 mg BIDWMEALS PO ; Start 10/12/19 at 17:00; Stop 10/13/19 at 00:21; Status DC Zolpidem Tartrate (Ambien) 5 mg PRN QHS PRN PO INSOMNIA, MAY REPEAT X1; Start 10/12/19 at 01:30 Info (Do NOT chart on this placeholder) 1 ea PRN 1X PRN MC SEE COMMENTS; Start 10/12/19 at 01:30 Info (Do NOT chart on this placeholder) 1 ea PRN 1X PRN MC SEE COMMENTS; Start 10/12/19 at 01:30 Oxycodone/ Acetaminophen (Percocet 5/325) 1 tab PRN Q4HRS PRN PO MILD PAIN 1-3 Last administered on 10/14/19at 00:28; Start 10/12/19 at 01:30 Oxycodone/ Acetaminophen (Percocet 5/325) 2 tab PRN Q4HRS PRN PO MODERATE PAIN, SEVERE PAIN; Start 10/12/19 at 01:30 Ketorolac Tromethamine (Toradol 30mg Vial) 30 mg PRN Q6HRS PRN IVP MODERATE PAIN 4-6 Last administered on 10/12/19at 08:36; Start 10/12/19 at 02:30; Stop 10/13/19 at 00:21; Status DC Morphine Sulfate (Morphine Sulfate) 4 mg 1X ONCE IV ; Start 10/12/19 at 05:00; Stop 10/12/19 at 05:01; Status DC Potassium Chloride (Klor-Con) 20 meq DAILYWBKFT PO Last administered on 10/13/19at 08:59; Start 10/12/19 at 10:30 Magnesium Hydroxide (Milk Of Magnesia) 2,400 mg PRN DAILY PRN PO CONSTIPATION Last administered on 10/13/19at 22:45; Start 10/12/19 at 18:15 Active Scripts Active Prednisone 50 Mg Tablet 1 Tab PO DAILY Keflex (Cephalexin) 500 Mg Capsule 500 Mg PO TID 7 Days Orphenadrine Citrate 100 Mg Tablet.er 100 Mg PO BID PRN Prednisone 20 Mg Tablet 2 Tab PO DAILY Start this prescription on 09/24/18 Alprazolam 0.5 Mg Tablet 0.5 Mg PO PRN Q8HRS PRN 7 Days Reported Levothyroxine Sodium 200 Mcg Tablet 1 Tab PO DAILY Proair Hfa Inhaler (Albuterol Sulfate) 8.5 Gm Hfa.aer.ad 1 Puff INH PRN Q6HRS PRN Flovent 110MCG Hfa (Fluticasone Propionate) 12 Gm Aer.w.adap 2 Puff IH BID Miralax (Polyethylene Glycol 3350) 17 Gm Powd.pack 1 Packet PO PRN PRN Magnesium (Magnesium Oxide) 400 Mg Capsule 1 Cap PO HS PRN Protonix (Pantoprazole Sodium) 20 Mg Tablet.dr 40 Mg PO DAILY Montelukast Sodium Tablet (Montelukast Sodium) 10 Mg Tablet 1 Tab PO HS Losartan Potassium 50 Mg Tablet 50 Mg PO DAILY Exam FFNT below umb Inc: C/D/I, some bruising b/l on panus 1+ edema Assessment A/P 39y POD #3 s/p 1 LTCS 1.) PO - doing well 2.) Hgb 11.0 -> 10.6 -> 10.0 3.) Pre-gestational vs gestational DM - PO FSBS nml 4.) Asthma - poorly controlled, sees security director, on Albuterol prn, recently completed a course of Prednisone 5.) Sleep Apnea - on 2L at night 6.) Hypothyroidism/Charlene thyroiditis - on Tirosint (Synthroid), taking home med, states that makes her potassium low 7.) Tob use - 1/2 PPD 8.) Girl: AGUSTIN Mora MD Oct 14, 2019 09:41
[2019-10-14] MEDS ORDERED: IBUP-1060 PO (09:48)
[2019-10-14] MEDS ORDERED: OXYC1TAB15 PO (09:48)
[2019-10-14] MEDS ORDERED: CHOL400C2 PO (09:48)
[2019-10-14] MEDS ORDERED: DOCU-109 PO (09:48)
[2019-10-14] MEDS: IBUPROFEN 400 MG TABLET. PO PRN (10:26)
[2019-10-14] MEDS: POTASSIUM CHLORIDE 20 MEQ TABLET.ER. PO SCH (10:27)
[2019-10-14] MEDS: DOCUSATE SODIUM 100 MG CAPSULE. PO PRN (10:27)
[2019-10-14] MEDS: MAGNESIUM HYDROXIDE 2,400 MG/30 ML ORAL.SUSP. PO PRN (10:31)
[2019-10-14 12:00] VITALS: BP 142/88
--- NOTE | 2019-10-14 12:49 | DS ---
DATE OF DISCHARGE: 10/14/2019 ADMISSION DIAGNOSES: 1. Intrauterine at 38 weeks and 0 days by 7-week ultrasound. 2. Induction of labor. 3. Advanced maternal age. 4. Pregestational versus gestational diabetes. 5. Large for gestational age . 6. Asthma, poorly controlled. 7. Sleep apnea. 8. Charlene's thyroiditis/hypothyroidism. 9. Tobacco use. 10. GBS-uria. DISCHARGE DIAGNOSES: 1. Intrauterine at 38 weeks and 0 days by 7-week ultrasound. 2. Induction of labor. 3. Advanced maternal age. 4. Pregestational versus gestational diabetes. 5. Large for gestational age infant. 6. Asthma, poorly controlled. 7. Sleep apnea. 8. Charlene's thyroiditis/hypothyroidism. 9. Tobacco use. 10. GBS-uria. 11. History of depression. PROCEDURE: Primary lower transverse . BRIEF HOSPITAL COURSE: The patient is a 39-year-old 4, para 2-0-1-2, who presented to Labor and Delivery at 38 weeks and 0 days by 7-week ultrasound for scheduled induction. The patient's was complicated by advanced maternal age, pregestational diabetes versus gestational diabetes, large for gestational age , poorly controlled asthma, sleep apnea and tobacco use. She began her care with Dr. Bill in [place], but switched care to our office in the third trimester. Due to her comorbidities as mentioned above, the patient was followed by High Risk doctor at in [place]. On admission, the patient was found to be 1 cm. She was started on Pitocin for induction. Around 10:30, the patient's membranes were ruptured. The patient arrested at 9 cm and ultimately needed a primary Csection. See operative note for full detail. Postoperatively, the patient did well with hemoglobin prior on admission of 11 and after the procedure to 10. The patient's fingerstick was normal postoperatively. The patient was reporting some anxiety and her mother reported that the patient did have a history of depression with her other 2 pregnancies, but otherwise, the patient felt that her mood was okay. Since the patient was meeting all discharge criteria, the patient was subsequently discharged home or boarder while the baby stayed in the hospital for an elevated bilirubin. DISCHARGE INSTRUCTIONS: The patient was told not to lift anything greater than 20 pounds, pelvic rest for [address] on narcotics. CALL IF: The patient was to call if she had fevers, chills, nausea, vomiting, abdominal pain or any additional questions or concerns. FOLLOWUP APPOINTMENT: The patient was to follow up on 10/20/2019 at 10:00 a.m. for an incision check and possible Nexplanon placement. DISCHARGE MEDICATIONS: The patient was given a prescription for Percocet 5, 10 pills; Motrin 800 mg, 30 pills; Colace 100 mg, 30 pills and vitamin D 40 units, 30 pills. AGUSTIN GARNICA MD DR: ELYSSA/tamir JOB#: [id number] / [id number] OSORIO
--- NOTE | 2019-10-14 15:07 | PATHOLOGY ---
[facility] Accession Number: [id number] . 01 Material submitted: . placenta - PLACENTA . 01 Clinical history: . for failure to progress. Please see delivery summary. . 02 Diagnosis: 703 gram early term placenta of an estimated 38 weeks gestation with attached and separate detached segments of umbilical cord: - Large for gestational age placenta (approximately 97th percentile). - Intervillous thrombus. - Subchorionic and focal intervillous fibrin deposition with villous entrapment and ischemic degeneration. - Septal cyst. - Villous chorangiosis, focal. (SNEHA:kat; 10/13/2019) [facility] 10/14/2019 1436 Local . 02 Comment: There is no evidence of an acute chorioamnionitis or villitis. (SNEHA:kat; 10/13/2019) . 02 Electronically signed: . Felix Mills MD, Pathologist NPI- [id number] . 01 Gross description: . Received in formalin labeled "Lauryn Zhong, placenta" is a fuentes placenta with attached membranes and umbilical cord. The placental disc measures 18.5 x 16.3 x 3.7 cm. The membranes are transparent and thin with the site of membrane rupture 3.7 cm from the placental disc. The membranes have marginal insertion. The umbilical cord measures 25.6 cm in length, 1.2 cm in diameter, contains three vessels and inserts eccentrically, 5.6 cm from the closest placental margin. There are no true knots in the umbilical cord. A separate segment of umbilical cord is present within the container measuring 20.0 cm in length and 1.2 cm in diameter. The trimmed placental weight is 703 grams. The surface is blue-alexandra with moderate subchorionic fibrin. Amnion nodosum is not present. Cysts are not present. The maternal surface has intact cotyledons and no basal hemorrhage. Sectioning through the placental disc reveals a cystic structure in the central placenta containing clear-alexandra and mucinous fluid measuring 1.2 cm in greatest dimension. Also present on cut surface is a santillan-white possible infarct measuring 2.0 cm, located in the peripheral placenta, and comprising less than 1% of the cut surface. Sections are submitted as follows: . A1 proximal and distal umbilical cord A2 membranes, rolled A3 fulfillment representative cyst A4 fulfillment representative infarct A5 fulfillment representative maternal surface A6 fulfillment representative surface adjacent to umbilical cord insertion site [place] [place]12[place]2019[place] [facility] 10/12/2019 1743 Local . 02 Pathologist provided ICD-10: O43.893, Z37.0, Z3A.37 . 02 CPT . 443242 Specimen Comment: A courtesy copy of this report has been sent to [phone], [phone] Specimen Comment: [id number] Specimen Comment: Report sent to / DR FORD Performed at: 01 [facility] [address] [facility] [address], [place] [id number] MD Mono Araujo MD Phone: [phone] Performed at: 02 [facility] [address] [place], [place] [id number] MD Felix Mills MD Phone: [phone]
== END 2019-10-14 12:30 | disposition home or self-care (01) | DRG 788 ==
LOC: 3 SO LND 05:54
PROVIDERS: ADMIT Obstetrics & Gynecology; ATTEND Obstetrics & Gynecology
PROC: 10D00Z1 Extraction of Products of Conception, Low, Open Approach (ICD-10-PCS; principal; 2019-10-11)
DX: O99.824 Streptococcus B carrier state complicating childbirth (principal); O24.429 Gestational diabetes mellitus in childbirth, unspecified control; O99.284 Endocrine, nutritional and metabolic diseases complicating childbirth; O62.1 Secondary uterine inertia; E03.9 Hypothyroidism, unspecified; O99.52 Diseases of the respiratory system complicating childbirth; G47.30 Sleep apnea, unspecified; J45.909 Unspecified asthma, uncomplicated; Z3A.38 38 weeks gestation of pregnancy; Z37.0 Single live birth
CPT/HCPCS: 36415; 80048; 80307; 81001; 82947; 82962; 85025; 85027; 86592; 86850; 86900; 86901; 87086; 88307; J1885; J2001; J2250; J2274; J2370; J2405; J2540; J2590; J2704; J2795; J3010; J7120; G0378